=== PATIENT | female | born 1930 | race Hispanic/Latino ===

== ENCOUNTER 2016-09-10 13:00 | Emergency (ER) | payer MEDICARE, MEDICAID ==
[~2016-09-10] VITALS: Ht 121.9 cm; Wt 87.3 kg
[~2016-09-10 13:00] MED LIST: ACET-171 PO; ACETAMINOPHEN ORAL; ASPI-973 PO; CLON0.1T PO; LEVO75TA4 PO; LISI-567 PO; MAGN800O PO; METO50TA3 PO; OMEP20TA86 PO
[2016-09-10 13:12] VITALS: BP 117/63; PULSE 66; RESP 15; O2SAT 99
[2016-09-10] MEDS ORDERED: Ondansetron 2 mg/mL 2 mL Inj IVPUSH ONE (14:45)
--- NOTE | 2016-09-10 15:01 | ED.REPORT ---
HPI-Extremity Problem Lower Date of Service Sep 10, 2016 ED Provider: Vin Matias PA-C Amber is an 86-year-old female who presents with chief complaint of left knee pain. She states the pain began approximately one week ago shortly after getting a collagen injection. She states the pain is worsened significantly over the last 2 days. She says the pain radiates from her left knee to her hip she also complains of lower back pain and leg weakness. She reports that the pain has not responded significantly to naproxen. X-rays were taken today at [facility] of her left hip that the patient states were normal. She cannot tolerate the pain at this point. Denies fevers, chills, malaise, recent surgery, recent infection, immunosuppression, IV drug use. Admits to some stress incontinence but Denies new bowel/bladder dysfunction, saddle anesthesia. Nursing Notes Stated Complaint: L SIDE KNEE PAIN UP TO THE HIP Chief Complaint: Extremity Trauma Nursing Notes Reviewed: Yes Allergies: Coded Allergies: nitroglycerin (Verified Adverse Reaction, Intermediate, LOW BP, 09/10/16) Scheduled ([Q-Pap Extra Strength]) 500 MG ORAL Q6H NEEDED Aspirin (Aspirin) 81 Mg Tablet 81 MG PO DAILY Clonidine (Clonidine) 0.1 Mg Tablet 0.1 MG PO BID Levothyroxine (Levothyroxine) 75 Mcg Tablet 75 MCG PO DAILY Lisinopril (Lisinopril) 20 Mg Tablet 20 MG PO DAILY Magnesium Hydroxide (Milk of Magnesia) 2,400 Mg/10 Ml Oral.susp 2,400 MG PO DAILY Metoprolol Tartrate (Metoprolol Tartrate) 50 Mg Tablet 50 MG PO BIDWM Omeprazole (Omeprazole) 20 Mg Tablet.dr 20 MG PO BID Scheduled PRN Acetaminophen (Acetaminophen) 500 Mg Tablet 500 MG PO Q6H PRN PRN NEEDED Hydrocodone-Acetaminophen 5-325 mg (Hydrocodone-Acetaminophen 5-325 mg) 1 Each Tablet 0.5-1 TABLET PO BID PRN PRN For Pain Ondansetron ODT (Ondansetron ODT) 8 Mg Tab.rapdis 8 MG PO Q4H PRN PRN For Nausea Polyethylene Glycol 3350 (Miralax) 17 Gm Powd.pack 17 GM PO DAILY PRN PRN For Constipation General Time Seen by MD: 14:29 Chief Complaint Leg injury left Past Medical History Past Medical History Notes: PCP Dr. 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 Left hip: tender, pain aggravated by range of motion. No redness, swelling, warmth. Left knee: Tender primarily along the medial joint line, pain aggravated by range of motion, no redness, swelling, warmth. No effusion appreciated Left foot: Sensation intact, brisk capillary refill. DP and PT pulses not appreciated Bilaterally Back: Normal to inspection, no tenderness. Eyes: No scleral icterus or injection. No discharge. Vision grossly intact. ENT: Voice clear, hearing grossly intact. Respiratory: Regular rate and rhythm. Breath sounds present, clear to auscultation and equal bilaterally. Cardiovascular: Regular rate and rhythm, without murmur, gallop or rub. No pedal edema. Gastrointestinal: Abdomen flat and non-tender without guarding or rebound. Bowel sounds normoactive. Skin: Warm and dry. Neurological: Not able to raise performed left straight leg raise due to lack of effort. Sensation intact in both feet. Psychological: Alert and oriented. Speech appropriate, linear and logical. Behavior appropriate. Initial Vital Signs Vital Signs (First) Date Time Temp Pulse Resp B/P Pulse Ox O2 Delivery O2 Flow Rate FiO2 09/10/16 13:12 36.7 66 15 117/63 99 Room Air Initial VS: Reviewed, Vital signs normal Interpretation & Diagnostics Lab Results Interpretation Result Diagram: 09/10/16 1507 09/10/16 1507 Test 09/10/16 15:07 White Blood Count 5.8th/mm3 (3.8-10.1) Red Blood Count 3.24mil/mm3 (3.90-5.20) Hemoglobin 10.6g/dL (12.0-15.6) Hematocrit 32.0% (35.0-46.0) Mean Corpuscular Volume 98.8fL (81-100) Mean Corpuscular Hemoglobin 32.7pg (27.0-35.0) Mean Corpuscular Hemoglobin Concent 33.1% (32.0-37.0) Red Cell Distribution Width 11.8% (12.3-15.4) Platelet Count 284bil/L (150-400) Neutrophils (%) (Auto) 71.3% (40-74) Lymphocytes (%) (Auto) 17.0% (14-46) Monocytes (%) (Auto) 8.3% (4-12) Eosinophils (%) (Auto) 2.9% (0-5) Basophils (%) (Auto) 0.3% (0-3) Sodium Level 131mEq/L (134-144) Potassium Level 5.4mEq/L (3.5-5.2) Chloride Level 96mEq/L (97-108) Carbon Dioxide Level 21mmol/L (18-29) Blood Urea Nitrogen 28mg/dL (8-27) Creatinine 1.04mg/dL (0.57-1.00) Estimat Glomerular Filtration Rate 72mL/min (>59) Glucose Level 109mg/dL (60-99) Calcium Level 8.6mg/dL (8.5-10.1) Total Bilirubin 0.3mg/dL (0.0-1.2) Aspartate Amino Transf (AST/SGOT) 22U/L (0-50) Alanine Aminotransferase (ALT/SGPT) 14U/L (0-32) Alkaline Phosphatase 87U/L (25-165) Total Protein 7.6g/dL (6.4-8.4) Albumin 3.7g/dL (3.4-5.0) Hold Deutsch Top Tube Received (Received) Lab Results Interpretation: CBC normal CMP marginal potassium, not clinically signifanct Renal function normal Discharge & Departure Impression: Primary Impression: Bilateral hip pain Additional Impression: Bilateral knee pain Chronicity: acute Qualified Code: M25.561 - Pain in right knee Referrals: Jeanette Key MD (PCP) Attending Statement The patient was initially seen and evaluated by the mid-level provider, that I personally interviewed and examined this patient with the assistance of an park interpreter. This is a patient who has had some chronic knee and hip pain, has been worse over the past week and while is bilateral worse on the left side. She still been ambulatory. She was just seen by orthopedics today, and had injections performed on both knees. Her symptoms still having pain and reports she just does not have enough pain control with ibuprofen she is taking twice a day, and would like additional relief. She denies fever, trauma, effusion, she denies new numbness, weakness, paresthesias. Reports her knee is been quite stiff and she cannot bend it very well. She is again able to ambulate. He does have some chronic back pain, but reports is not really changed. There is no radiation of pain below the knee. No clearly radicular symptoms. Exam patient's obese, she is in no visible distress. He has decreased range of motion particularly in the left knee, but I do not appreciate any warmth, effusion or findings clinically suggest a septic knee, or the findings of venous thrombi embolism. Patient is status post arthrocentesis earlier today, and the time he is extraordinarily low probability for a effusion. She permits internal and external rotation of the hip, flex and extend without evidence of acute fracture, septic joint, acute intraarticular process. His artery had radiographs since the onset of the symptoms, and I am not finding indication that they need to be repeated. Discussion the patient's family she is basically here requesting additional pain control. She does not have red flags to indicate an acute radiculopathy, epidural process or need for emergent cardiac intervention. I am not finding evidence of a joint infection, fracture or other process. The patient received a dose of morphine as initiated by the mid-level, and a dose of hydrocodone. The patient also has a complaint of some chronic nausea and did receive a dose of Zofran for this. After a Discussion with the patient with family, they would like to be discharged with the addition of some when necessary hydrocodone to allow some time for the injections several just performed. The plan is to starts her 0.5 of hydrocodone up to twice a day. I have also written a prescription for MiraLAX that she has had intermittent problems with constipation. Routine precautions were reviewed, with explained that she has new or worsening symptoms , develops a fever or swelling-she is return directly to respond. She will follow-up with her orthopedist her PCP next week for recheck. Vin Matias PA-C Sep 10, 2016 15:01 Carlos Diaz MD Sep 10, 2016 18:16
[2016-09-10 15:17] LABS: BASOPHILS % (AUTO) 0.3 % (0-3); EOSINOPHILS % (AUTO) 2.9 % (0-5); MONOCYTES % (AUTO) 8.3 % (4-12); Mean Corpuscular Hemoglobin 32.7 pg (27.0-35.0); Mean Corpuscular Volume 98.8 fL (81-100); NEUTROPHILS % (AUTO) 71.3 % (40-74); Platelet Count 284 bil/L (150-400)
[2016-09-10] MEDS ORDERED: HYDROcodone-APAP 5-325 mg Tablet PO ONE (16:35)
[2016-09-10] MEDS ORDERED: POLY17PO6 PO (17:25)
[2016-09-10] MEDS ORDERED: ONDA8TAB10 PO (17:25)
[2016-09-10] MEDS ORDERED: HYDR-4003 PO (17:25)
[2016-09-10] MEDS ORDERED: Ondansetron 8 mg ODT Tablet ONE (17:51)
[2016-09-10] MEDS ORDERED: Ondansetron 8 mg ODT Tablet PO ONE (18:15)
[2016-09-10 18:16] VITALS: BP 151/71; PULSE 71; RESP 17; O2SAT 99
== END 2016-09-10 18:17 ==
LOC: SED 13:00
DX: M25.551 Pain in right hip (principal); M25.552 Pain in left hip; M25.561 Pain in right knee; M25.562 Pain in left knee; M54.5 Low back pain; J44.9 Chronic obstructive pulmonary disease, unspecified; I10 Essential (primary) hypertension; E66.9 Obesity, unspecified; I44.2 Atrioventricular block, complete; Z98.890 Other specified postprocedural states; Z95.0 Presence of cardiac pacemaker; Z68.43 Body mass index [BMI] 50.0-59.9, adult; Z79.82 Long term (current) use of aspirin; Z88.8 Allergy status to other drugs, medicaments and biological substances
CPT/HCPCS: 36415; 80053; 85025; 96374; 96375; 96376; 99284; J2270; J2405

== ENCOUNTER 2016-11-28 12:14 | Emergency (ER) | payer MEDICARE, MEDICAID ==
[~2016-11-28] VITALS: Ht 134.6 cm; Wt 89.1 kg
[~2016-11-28 12:14] MED LIST changes: +HYDR-4003 PO; +ONDA8TAB10 PO; +POLY17PO6 PO
[2016-11-28 12:25] VITALS: BP 126/57; PULSE 71; RESP 20; O2SAT 98
--- NOTE | 2016-11-28 14:14 | ED.REPORT ---
HPI-Extremity Problem Lower Date of Service November 28, 2016 ED Provider: Dr. Yossi Vazquez M.D. Nursing Notes Stated Complaint: RIGHT HIP/LEG PAIN Chief Complaint: Extremity Trauma Nursing Notes Reviewed: Yes Allergies: Coded Allergies: nitroglycerin (Verified Adverse Reaction, Intermediate, LOW BP, 09/10/16) Scheduled ([Q-Pap Extra Strength]) 500 MG ORAL Q6H NEEDED Aspirin (Aspirin) 81 Mg Tablet 81 MG PO DAILY Clonidine (Clonidine) 0.1 Mg Tablet 0.1 MG PO BID Levothyroxine (Levothyroxine) 75 Mcg Tablet 75 MCG PO DAILY Lisinopril (Lisinopril) 20 Mg Tablet 20 MG PO DAILY Magnesium Hydroxide (Milk of Magnesia) 2,400 Mg/10 Ml Oral.susp 2,400 MG PO DAILY Metoprolol Tartrate (Metoprolol Tartrate) 50 Mg Tablet 50 MG PO BIDWM Omeprazole (Omeprazole) 20 Mg Tablet.dr 20 MG PO BID Scheduled PRN Acetaminophen (Acetaminophen) 500 Mg Tablet 500 MG PO Q6H PRN PRN NEEDED Hydrocodone-Acetaminophen 5-325 mg (Hydrocodone-Acetaminophen 5-325 mg) 1 Each Tablet 0.5-1 TABLET PO BID PRN PRN For Pain Ondansetron ODT (Ondansetron ODT) 8 Mg Tab.rapdis 8 MG PO Q4H PRN PRN For Nausea Polyethylene Glycol 3350 (Miralax) 17 Gm Powd.pack 17 GM PO DAILY PRN PRN For Constipation General Time Seen by MD: 14:13 Past Medical History Past Medical History Notes: PCP Dr. 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 I, Dr. Vazquez, personally performed the history, physical exam, and medical decision-making; I reviewed and confirmed the accuracy of the information in the transcribed note. copies to: Jeanette Key MD, Ben M MD November 28, 2016 14:14 LI CONDE November 28, 2016 14:20 Cm Bhardwaj MD November 28, 2016 15:14
--- NOTE | 2016-11-28 15:01 | DRSVH ---
PROCEDURE: X-RAY PELVIS W/LAT HIP (RT) ([id number]) INDICATIONS: pain TECHNIQUE: AP pelvis with lateral view(s) of the right hip(s). COMPARISON: [facility], CR, XR CHEST 2VW, 07/17/2016, 17:27. FINDINGS: Bones: No acute fracture or dislocation is evident involving the right hip. There are moderate degen erative changes of the right hip. Prominent degenerative changes of the image the lumbosacral spine and moderate degenerative changes of the left hip and pubis symphysis are incidentally noted. The thurman perior and inferior pubic rami on the right appear to be grossly intact, but are not well valuated on this exam. The bone mineralization is decreased. No suspicious osseous lesions are evident. Soft tissues: The imaged bowel loops do not appear to be significantly dilated. Moderate stool is ev ident within the colon. No suspicious soft tissue calcifications. IMPRESSION: Degenerative changes of the right hip without acute fracture. Dictated by: Atilio Flores M.D. on 11/28/2016 at 13:58 Approved by: Atilio Flores M.D. on 11/28/2016 at 14:00
--- NOTE | 2016-11-28 15:15 | ED.REPORT ---
HPI-General Illness Date of Service November 28, 2016 ED Provider: Cm Bhardwaj MD Patient is an 86 year old female who presents to the ED complaining of R hip pain onset 3 days ago. Associated symptoms include R upper leg pain and trouble walking (secondary to pain). She denies numbness, weakness, tingling, dysuria, fever, chest pain, SOB, abdominal pain, or any other symptoms. She does not recall a mechanism of injury. She has had similar symptoms previously due to arthritis in her hip. She is taking Ibuprofen for her pain though this is not adequately managing her pain. She is here with family seeking better pain control. She states that she is not interested in having surgery on her hip. She has not fallen. Nursing Notes Stated Complaint: RIGHT HIP/LEG PAIN Chief Complaint: Extremity Trauma Nursing Notes Reviewed: Yes Allergies: Coded Allergies: nitroglycerin (Verified Adverse Reaction, Intermediate, LOW BP, 09/10/16) Scheduled ([Q-Pap Extra Strength]) 500 MG ORAL Q6H NEEDED Aspirin (Aspirin) 81 Mg Tablet 81 MG PO DAILY Clonidine (Clonidine) 0.1 Mg Tablet 0.1 MG PO BID Levothyroxine (Levothyroxine) 75 Mcg Tablet 75 MCG PO DAILY Lisinopril (Lisinopril) 20 Mg Tablet 20 MG PO DAILY Magnesium Hydroxide (Milk of Magnesia) 2,400 Mg/10 Ml Oral.susp 2,400 MG PO DAILY Metoprolol Tartrate (Metoprolol Tartrate) 50 Mg Tablet 50 MG PO BIDWM Omeprazole (Omeprazole) 20 Mg Tablet.dr 20 MG PO BID Scheduled PRN Acetaminophen (Acetaminophen) 500 Mg Tablet 500 MG PO Q6H PRN PRN NEEDED Hydrocodone-Acetaminophen 5-325 mg (Hydrocodone-Acetaminophen 5-325 mg) 1 Each Tablet 0.5-1 TABLET PO BID PRN PRN For Pain Hydrocodone-Acetaminophen 5-325 mg (Hydrocodone-Acetaminophen 5-325 mg) 1 Each Tablet 1 TABLET PO Q4H PRN PRN For Pain Ondansetron ODT (Ondansetron ODT) 8 Mg Tab.rapdis 8 MG PO Q4H PRN PRN For Nausea Polyethylene Glycol 3350 (Miralax) 17 Gm Powd.pack 17 GM PO DAILY PRN PRN For Constipation General Time Seen by MD: 15:11 Chief Complaint Other (Hip pain ) Hx Obtained From: Patient, Daughter Arrived By: Wheelchair Sudden in Onset?: Yes Onset Occurred: 3 days ago Symptom Duration: Since onset Similar Sx Previous: Yes Past Medical History Past Medical History Notes: PCP Dr. 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 hyponatremia hyperthyroidism chronic chest pain Reports: COPD, GERD, Hypertension Reports: Obesity Past Surgical History Uterus biposy Reports: Pacemaker insertion Smoking History Former Smoker Social History Other Social History: Good social support, Local resident Ambulatory Status Cane Review of Systems Full Review of Systems Constitutional: Denies: Fever Respiratory: Denies: Shortness of breath Cardiovascular: Denies: Chest pain GI: Denies: Abdominal pain Female: Denies: Dysuria Musculoskeletal: Reports: Extremity pain (R leg ), Joint pain (R hip ) Neurologic: Reports: Problem walking (Secondary to pain ), Denies: Numbness, Weakness Complete sys rev & neg: except as marked. Physical Exam Vital Signs Vital Signs Date Time Temp Pulse Resp B/P Pulse Ox O2 Delivery O2 Flow Rate FiO2 11/28/16 18:04 72 12 106/47 92 Room Air 11/28/16 12:25 36.9 71 20 126/57 98 Initial VS: Reviewed Head / Eyes: Atraumatic, Normocephalic Neck: Full range of motion Skin: Warm, Dry Neurologic: Alert, Oriented, Nonfocal Psychiatric: Mood/affect normal, Behavior normal, Normal thought content General/Constitutional: Awake, Alert, No acute distress Respiratory / Chest: Breath sounds NL, Breath sounds = bilat, No respiratory distress Cardiovascular: Heart rate NL, Regular rhythm, Heart sounds NL, No gallop, No murmurs, No rubs Abdomen: Soft, Non-tender, No distention Lower Extremity / Pelvis / MS: Neurologic intact, Vascular intact Tenderness over R lateral hip Limited ROM of R hip secondary to pain Neurovascularly intact on distal extremities FROM L hip Interpretation & Diagnostics Lab Results Interpretation Lab Results Interpretation: CT Hip, no contrast: IMPRESSION: 1. No fracture. 2. Increasing left ovarian cyst; low grade malignancy could produce this appearance. Gynecological consultation is recommended. Dictated by: Harjinder Davis M.D. on 11/28/2016 at 19:03 Approved by: Harjinder Davis M.D. on 11/28/2016 at 19:05 X-Ray Interpretation Xray Interpretation: IMPRESSION: Degenerative changes of the right hip without acute fracture. Dictated by: Atilio Flores M.D. on 11/28/2016 at 13:58 Approved by: Atilio Flores M.D. on 11/28/2016 at 14:00 Study Performed: R hip/pelvis X-Ray Ordered: Hip right Interpretation / Wet Read by: Interpret - Radiologist CT Abd / Pelvis Interpretation Re-Eval/Medical Decision Med Decision/Clinical Course Patient is an 86 year old female who presents to the ED complaining of R hip pain onset 3 days ago. Associated symptoms include R upper leg pain and trouble walking (secondary to pain). She denies numbness, weakness, tingling, dysuria, fever, chest pain, SOB, abdominal pain, or any other symptoms. She does not recall a mechanism of injury. She has had similar symptoms previously due to arthritis in her hip. She is taking Ibuprofen for her pain though this is not adequately managing her pain. She is here with family seeking better pain control. She states that she is not interested in having surgery on her hip. She has not fallen. Here in the emergency department the patient is afebrile with stable vital signs and examination as above. There is no clinical evidence suggestive of acute hip fracture or traumatic injury. She is neurovascularly intact in the affected extremity. R hip/pelvis xray: Degenerative changes of the right hip without acute fracture. The patient is already taking NSAIDs as well as Tylenol and I had a long discussion with the family explaining that other than opiate pain medication there is little more that I would likely be able to add in the emergency room to help manage her pain. I initially treated her with oral oxycodone though this was not effective. Therefore I administered 1 dose of intramuscular hydromorphone. Given the degree of the patient's pain I had some concern for possible occult hip fracture and therefore I obtained a CT scan of the hip as below: IMPRESSION: 1. No fracture. 2. Increasing left ovarian cyst; low grade malignancy could produce this appearance. Gynecological consultation is recommended. After the above medications the patient reported significant improvement in her pain. I have advised her that I think she may benefit from evaluation by an orthopedic surgeon to assess whether or not she would benefit from steroid injections or possible hip surgery. At this time I feel that she is appropriate for discharge home. She has extensive support in the home and family can help care for her. Prior to discharge follow-up and return precautions were reviewed in detail with the patient who verbalized understanding and agreement with the plan. The patient was discharged in stable condition. Of note patient had left ovarian cyst as described above. She has been referred to [facility] and advised to follow up about this. Time of Eval: 15:48 Re-Evaluation/Progress Note: Discussed plan for discharge. Patient understands and agrees with plan. All questions addressed at this time. Counseled Regarding: Diagnosis, Lab results, Need for follow-up, When/why to return to ED Discharge & Departure Primary Impression: Hip pain, right Additional Impressions: Osteoarthritis of right hip Osteoarthritis type: unspecified Qualified Code: M16.11 - Unilateral primary osteoarthritis, right hip Ovarian mass, left Disposition: Home Discharge Condition All VS Reviewed: Yes Condition: Stable Additional Instructions: Thank you for seeking care at the emergency room. It is difficult for us to make definitive diagnoses in the ED but we believe that you are experiencing pain from osteoarthritis. Our primary goal today in the ED was to evaluate you for any life-threatening conditions. Your CT scan revealed a mass in your left ovary. You will be discharged with a prescription for Beryl for pain, please take as directed. Please be aware that this medication contains Tylenol. You should not exceed 4000 mg of Tylenol a day for all sources combined. You should follow-up with your primary doctor in the next week. Follow up with an OBGYN for your ovarian mass. You may benefit from surgery on your hip or injections in your hip. Please make an appointment with orthopedic surgeons to discuss this. You should return to the ED immediately if you develop worse pain, fevers, vomiting, cough, shortness of breath, chest pain, lightheadedness, weakness or any other concerning signs or symptoms. Thank you for letting us partake in your care today. Narcotic Pain Medicine You have been prescribed a narcotic for pain relief. These drugs are usually combined with acetaminophen (Tylenol#3, Percocet, Darvocet, Anexsia, Vicodin) or aspirin (Empirin#3, Percodan, Synalogs-DC) for increased effect. Narcotics act on the central nervous system to reduce pain; they also impair mental alertness and physical abilities. We advise you not to drink alcohol, drive a car, or operate dangerous equipment when you are taking these drugs. You can lessen stomach irritation from your medicine by taking it with meals or a full glass of water. Common side effects of narcotics are: Nausea and vomiting , heartburn, constipation, dizziness, sleepiness, and mood changes. If you have bothersome side effects or symptoms of an allergic reaction (itching, hives, rash), stop taking your medicine and call your doctor or the emergency room right away. Please keep your narcotic medicine well out of the reach of children. Orthopedist: Reed Blunt [address] [place] [id number] Referrals: Jeanette Key MD (PCP) Reed Blunt MD, William Andre Z MD Scribe Attestation Portions of this note were transcribed by Benson Blackmon. I, Dr. Bhardwaj personally performed the history, physical exam and medical decision-making; I reviewed and confirmed the accuracy of the information in the transcribed note. Signed by: Benson Blackmon 11/28/2016, [id number] copies to: Jeanette Key MD, Beck O MD November 28, 2016 15:14 BENSON BLACKMON November 28, 2016 15:40
[2016-11-28] MEDS ORDERED: HYDR-4003 PO (15:50)
[2016-11-28] MEDS ORDERED: HYDROcodone-APAP 10-325 mg PO ONE (15:50)
[2016-11-28 18:04] VITALS: BP 106/47; PULSE 72; RESP 12; O2SAT 92
[2016-11-28] MEDS ORDERED: HYDROmorphone 1 mg/mL Inj IM ONE (18:15)
--- NOTE | 2016-11-28 19:07 | DRSVH ---
PROCEDURE: CT HIP RIGHT W/O CONTRAST (36818) INDICATIONS: assess for fx, pain, neg xray TECHNIQUE: Noncontrast 3 mm axial sections acquired through the bony pelvis. Additional 3 mm axial sections acq uired through the symptomatic hip joint, with coronal and sagittal reformats. COMPARISON: [facility], CR, XR PELVIS W LATERAL HIP RT, 11/28/2016, 14:35. [facility], CR, XR PELVIS W LATERAL HIP LT, 09/10/2016, 11:51. [facility], CT, CHEST/ABD/PELVIS W/CON (PNL), 06/29/2013, 18:35. FINDINGS: Image quality: Excellent. Bones: No fracture or osseous lesion. Soft tissues: Visualized bowel loops are within normal limits. Visualized vasculature is normal in ca liber. Left ovary is within the posterior lobe superior pelvis, and there is a 33 mm diameter left ov miladys cysts, which previously measured 19 mm. IMPRESSION: 1. No fracture. 2. Increasing left ovarian cyst; low grade malignancy could produce this appearance. Gynecological co nsultation is recommended. Dictated by: Harjinder Davis M.D. on 11/28/2016 at 19:03 Approved by: Harjinder Davis M.D. on 11/28/2016 at 19:05
[2016-11-28 19:41] VITALS: BP 137/67; PULSE 84; RESP 22; O2SAT 94
[2016-11-29] MEDS ORDERED: FURO40SO4 PO (15:27)
[2016-11-29] MEDS ORDERED: AMLO5TAB2 PO (15:31)
[2016-11-29] MEDS ORDERED: LISI-567 PO (16:22)
[2016-11-29] MEDS ORDERED: IBUP100T7 PO (16:25)
== END 2016-11-28 19:42 | disposition home or self-care (01) ==
LOC: SED 12:14
DX: M16.11 Unilateral primary osteoarthritis, right hip (principal); N83.292 Other ovarian cyst, left side; J44.9 Chronic obstructive pulmonary disease, unspecified; K21.9 Gastro-esophageal reflux disease without esophagitis; I10 Essential (primary) hypertension; Z95.0 Presence of cardiac pacemaker; Z87.891 Personal history of nicotine dependence; Z88.8 Allergy status to other drugs, medicaments and biological substances; Z79.82 Long term (current) use of aspirin
CPT/HCPCS: 73501; 73700; 96372; 99285; J1170

== ENCOUNTER 2016-11-29 08:16 | Inpatient (IN) | payer MEDICARE, MEDICAID ==
[2016-11-29] VITALS (10 sets, daily range): BP systolic 99–135; BP diastolic 41–63; PULSE 84–122; RESP 14–25; O2SAT 92–98
[~2016-11-29] VITALS: Ht 137.2 cm; Wt 91.7 kg
--- NOTE | 2016-11-29 08:28 | ED.REPORT ---
HPI-Dyspnea / Wheezing Date of Service November 29, 2016 ED Provider: Carlos Diaz MD Patient is an 86 year old female with a history of asthma, CHF and hypertension who presents to the ED due to shortness of breath onset yesterday. Associated symptoms include vomiting, chills, nausea, leg and knee pain that has gotten progressively worse since yesterday. Per the patient's daughter, the patient has not been diaphoretic, shaking, or fever. Patient reports that she has not experienced this kind of shortness of breath before. The patient was seen yesterday for knee pain and given Hydrocodone. She had an episode of vomiting after taking the Hydrocodone around 1830 last night and than started having shortness of breath. The patient was also seen three days ago at [facility] for a kidney infection. She is not currently taking antibiotics. Nursing Notes Stated Complaint: CHEST PAIN/DIFFICULTY BREATHING Nursing Notes Reviewed: Yes ([employer] not reconciled) Allergies: Coded Allergies: nitroglycerin (Verified Adverse Reaction, Intermediate, LOW BP, 09/10/16) Scheduled ([Q-Pap Extra Strength]) 500 MG ORAL Q6H NEEDED Aspirin (Aspirin) 81 Mg Tablet 81 MG PO DAILY Clonidine (Clonidine) 0.1 Mg Tablet 0.1 MG PO BID Furosemide (Furosemide) 40 Mg/4 Ml Solution 20 MG PO DAILY Levothyroxine (Levothyroxine) 75 Mcg Tablet 75 MCG PO DAILY Lisinopril (Lisinopril) 20 Mg Tablet 20 MG PO DAILY Magnesium Hydroxide (Milk of Magnesia) 2,400 Mg/10 Ml Oral.susp 2,400 MG PO DAILY Metoprolol Tartrate (Metoprolol Tartrate) 50 Mg Tablet 50 MG PO BIDWM Omeprazole (Omeprazole) 20 Mg Tablet.dr 20 MG PO BID Scheduled PRN Acetaminophen (Acetaminophen) 500 Mg Tablet 500 MG PO Q6H PRN PRN NEEDED Hydrocodone-Acetaminophen 5-325 mg (Hydrocodone-Acetaminophen 5-325 mg) 1 Each Tablet 0.5-1 TABLET PO BID PRN PRN For Pain Hydrocodone-Acetaminophen 5-325 mg (Hydrocodone-Acetaminophen 5-325 mg) 1 Each Tablet 1 TABLET PO Q4H PRN PRN For Pain Ondansetron ODT (Ondansetron ODT) 8 Mg Tab.rapdis 8 MG PO Q4H PRN PRN For Nausea Polyethylene Glycol 3350 (Miralax) 17 Gm Powd.pack 17 GM PO DAILY PRN PRN For Constipation General Time Seen by MD: 08:25 Chief Complaint Shortness of breath Hx Obtained From: Patient, Daughter, Technical Sales Engineer Arrived By: Walk-in Sudden in Onset?: Yes Onset Occurred: Yesterday Symptom Duration: Since onset Recent Healthcare: No recent hospitalization, Recent doctor visit Similar Sx Previous: No Past Medical History Past Medical History Notes: PCP Dr. 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 GI: Reports: Nausea, Vomiting Physical Exam Initial Vital Signs Vital Signs (First) Date Time Temp Pulse Resp B/P Pulse Ox O2 Delivery O2 Flow Rate FiO2 11/29/16 08:37 37.0 91 14 135/52 94 Room Air 11/29/16 09:45 3 Initial VS: Reviewed, Unavailable (none on chart) General/Constitutional: Awake, Alert Appearance / Presentation: Positive: Obese Neck: Atraumatic, Supple RESPIRATORY: wheezing, mild bronchispasms decreased breath sounds all katz Cardiovascular: Regular rhythm, Heart sounds NL Heart Rate / Rhythm: Positive: Tachycardia LOWER EXTREMITIES: obese but no signs of obvious DVT can move legs without localizing pain Skin: Atraumatic, Color NL, No rash, Warm, Dry Neurologic: Oriented X3, Speech NL, No motor deficits, No sensory deficits Head / Eyes: Atraumatic, Normocephalic, PERRL, EOMI Rectum / Perineum: Atraumatic, control system manager passed, No gross blood, No mass Psychiatric: Affect NL, Mood NL Interpretation & Diagnostics Interpretation & Diagnostics: VENOUS DUPLEX: IMPRESSION: No deep vein thrombosis of the right lower extremity. Dictated by: Melody Sifuentes M.D. on 11/29/2016 at 10:58 Approved by: Melody Sifuentes M.D. on 11/29/2016 at 10:58 CHEST/ABDOMEN/PELVIS CT: IMPRESSION: 1. No acute intra-abdominal findings. Specifically, no findings to suggest retroperitoneal bleed. 2. Multiple large gallstones within the gallbladder fundus and probable gallstone within the cystic duct. There is probable dense sludge throughout the gallbladder as described above. The gallbladder wall is not well characterized; however there is no pericholecystic fluid or fat stranding to suggest acute cholecystitis. If further characterization is warranted, right upper quadrant ultrasound may be helpful. 3. 2.5 cm in diameter left ovarian cyst which is abnormal in an 86-year-old patient. Nonemergent pelvic ultrasound could be helpful to further characterize this finding. Additionally, annual sonographic surveillance recommended. Dictated by: Melody Sifuentes M.D. on 11/29/2016 at 11:09 Approved by: Melody Sifuentes M.D. on 11/29/2016 at 11:20 Lab Results Interpretation Result Diagram: 11/29/16 0838 11/29/16 1205 Test 11/29/16 08:38 11/29/16 09:00 11/29/16 12:05 White Blood Count 8.5th/mm3 (3.8-10.1) Red Blood Count 2.93mil/mm3 (3.90-5.20) Hemoglobin 9.5g/dL (12.0-15.6) Hematocrit 28.9% (35.0-46.0) Mean Corpuscular Volume 98.6fL (81-100) Mean Corpuscular Hemoglobin 32.4pg (27.0-35.0) Mean Corpuscular Hemoglobin Concent 32.9% (32.0-37.0) Red Cell Distribution Width 12.3% (12.3-15.4) Platelet Count 269bil/L (150-400) Neutrophils (%) (Auto) 74.2% (40-74) Lymphocytes (%) (Auto) 15.9% (14-46) Monocytes (%) (Auto) 9.3% (4-12) Eosinophils (%) (Auto) 0.1% (0-5) Basophils (%) (Auto) 0.1% (0-3) D-Dimer 1.65mg/L FEU (<0.50) Magnesium Level 2.3mg/dL (1.6-2.6) Troponin T 0.010ug/L (0.0-0.011) Pro-B-Type Natriuretic Peptide 3878pg/mL (0-738) Lactic Acid Level 2.2mmol/L (0.4-2.0) Sodium Level 131mEq/L (134-144) Potassium Level 4.7mEq/L (3.5-5.2) Chloride Level 92mEq/L (97-108) Carbon Dioxide Level 18mmol/L (18-29) Blood Urea Nitrogen 49mg/dL (8-27) Creatinine 1.67mg/dL (0.57-1.00) Estimat Glomerular Filtration Rate 42mL/min (>59) Glucose Level 188mg/dL (60-99) Calcium Level 9.2mg/dL (8.5-10.1) Total Bilirubin 0.3mg/dL (0.0-1.2) Aspartate Amino Transf (AST/SGOT) 22U/L (0-50) Alanine Aminotransferase (ALT/SGPT) 15U/L (0-32) Alkaline Phosphatase 84U/L (25-165) Total Protein 6.8g/dL (6.4-8.4) Albumin 3.8g/dL (3.4-5.0) Lab Results Interpretation: CBC, mildly new anemia from a normal hematocrit March 2016 CP mild hyponatremia, mild hyperkalemia, worsening renal insufficiency, glucose normal Lactic acid slightly elevated BMP elevated Troponin #1 negative ECG Interpretation ECG Interpretation: no acute ischemia no signs of hyperkalemia no changes since Mar 2016 Time: 08:36 Interpreted by: ED physician Normal ECG Interpretation: Normal rate (92), Normal sinus rhythm ECG Interpretation: low grade tachycardia after Albuterol treatment no other abnormalities no other findings or interval changes no signs of hyperkalemia Time: 10:31 Interpreted by: ED physician X-Ray Chest Interpretation Chest Xray Interpretation: IMPRESSION: No acute cardiopulmonary findings. Stable cardiomegaly. Dictated by: Melody Sifuentes M.D. on 11/29/2016 at 9:05 Approved by: Melody Sifuentes M.D. on 11/29/2016 at 9:06 View: Portable, 1 view Interpretation / Wet Read by: Interpret - Radiologist Re-Eval/Medical Decision Med Decision/Clinical Course This is an 86-year-old Italian-speaking female presents with a complaint of shortness of breath that she attributes to hydrocodone that she started yesterday for some right hip pain after being seen in the [facility] having had negative hip CT. I have a hard time following the patient's and family story, as, gave a challenges containing the patient's past medical history medications-old woman is able to obtain a medication list from the PCP at [facility]. The patient developed shortness of breath and nausea, again she trips to this to a drug reaction-but has no hives, urticaria, aspirations in the differential but not clear by history. On exam she is bronchospastic and has a sat around 90- 91%-but otherwise not have any hard findings. A chest x-ray was negative. Given she described right-sided pain yesterday, duplex ultrasound of right lower extremity was obtained and was negative for DVT. Note for new anemia compared with March, although guaiac was negative. 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 She also received aggressive albuterol given at bronchospasm. She reports a history of CHF and is worried about this, but none was clearly identified radiographically. Furthermore the bridge gang worker commended obtaining CT images to rule out the possibility of occult retroperitoneal hemorrhage, and given overall component of shortness of breath as well CT chest abdomen and pelvis noncontrast is obtained, without evidence of hemorrhage-or CHF. At this point the patient sounding gently hydrated. She did have ongoing problems with nausea, again she attributes to a single dose of hydrocodone yesterday-she did require multiple antiemetics in the department. He is being admitted to the hospital service, consultation with the bridge gang worker as been obtained of the current plan is hydration and reevaluation. Source of Hx: Old records Re-Evaluation/Progress #1: Time of Eval: 09:13 Patient Status: Mild relief Re-Evaluation/Progress #2: Time of Eval: 11:26 Re-Evaluation/Progress Note: Discussed results. Patient reports she is starting to have pain in her left arm. Discussed plan for admit. The patient understands and agrees. All questions were addressed. Consultation #1: Consulted With: Nephrology Call Returned at: 10:28 Note: Consult with Dr. Andrei Alex, nephrology, who recommends the patient have a CT Consultation #2: Referral / Consult Name: Nahun Jo Consulted With: Hospitalist Call Returned at: 12:21 Hooker Inspector: Agrees with eval, Agrees with plan, Accepts admit Counseled Regarding: Diagnosis, Lab results, Need for admission Discharge & Departure Impression: Primary Impression: Dyspnea Dyspnea type: unspecified Qualified Code: R06.00 - Dyspnea, unspecified Additional Impressions: Bronchospasm Hyperkalemia Acute renal insufficiency Anemia Iron deficiency anemia type: unspecified iron deficiency Disposition: ADMITTED TO HOSPITAL Discharge Condition All VS Reviewed: Yes Condition: Stable Referrals: Jeanette Key MD (PCP) Verenice Attestation Portions of this note were transcribed by Jacque Munoz. I, Dr. Diaz personally performed the history, physical exam and medical decision-making; I reviewed and confirmed the accuracy of the information in the transcribed note. Signed by: Verenice Lopes, 11/29/16 and 1222 copies to: Jeanette Key MD, Matthew F MD November 29, 2016 08:28 Rubina Munoz November 29, 2016 09:13
[2016-11-29] MEDS ORDERED: Albuterol 2.5 mg/3 mL Inhalation Solution NEB ONE (08:30)
[2016-11-29 08:44] LABS: BASOPHILS % (AUTO) 0.1 % (0-3); EOSINOPHILS % (AUTO) 0.1 % (0-5); MONOCYTES % (AUTO) 9.3 % (4-12); Mean Corpuscular Hemoglobin 32.4 pg (27.0-35.0); Mean Corpuscular Volume 98.6 fL (81-100); NEUTROPHILS % (AUTO) 74.2 % (40-74); Platelet Count 269 bil/L (150-400)
--- NOTE | 2016-11-29 09:08 | DRSVH ---
PROCEDURE: X-RAY CHEST ONE VIEW, PORTABLE ([id number]) INDICATIONS: SOB TECHNIQUE: One view of the chest was acquired. COMPARISON: [facility], CR, XR CHEST 2VW, 07/17/2016, 17:27. FINDINGS: Surgical changes and devices: Cardiac pacer is unchanged. Lungs and pleura: No pleural effusions or pneumothorax. Lungs are clear. Mediastinum: Mediastinal contours appear normal. Heart size is mildly enlarged, as before. Bones and chest wall: No suspicious bony lesions. Overlying soft tissues appear unremarkable. IMPRESSION: No acute cardiopulmonary findings. Stable cardiomegaly. Dictated by: Melody Sifuentes M.D. on 11/29/2016 at 9:05 Approved by: Melody Sifuentes M.D. on 11/29/2016 at 9:06
[2016-11-29 09:10] LABS: TROPONIN T 0.01 ug/L (0.0-0.011)
[2016-11-29] MEDS ORDERED: Ondansetron 2 mg/mL 2 mL Inj IVPUSH ONE ×2 (09:20→10:50)
[2016-11-29 09:21] LABS: Magnesium 2.3 mg/dL (1.6-2.6)
[2016-11-29] MEDS ORDERED: Calcium GLUCOnate 10% (Gm) 1 Gm/10 mL Inj IVPUSH PRN (09:30)
[2016-11-29] MEDS ORDERED: Insulin Human REGular-Omnicell 100 Unit/mL IV ONE (09:30)
[2016-11-29] MEDS ORDERED: Sodium Polystyrene Sulfonate 0.25 Gm/mL 500 mL Suspension PO ONE (09:30)
[2016-11-29] MEDS ORDERED: Albuterol 0.5% (5mg/mL) 20 mL Inhalation Solution NEB ONE (09:30)
[2016-11-29] MEDS ORDERED: Sodium Bicarb (50 mEq) 8.4% 1 mEq/mL 50 mL Syringe IVPUSH ONE (09:30)
[2016-11-29] MEDS: fentaNYL-PF 50 mCg/mL 2 mL Inj IVPUSH PRN ×3 (09:52→15:11)
--- NOTE | 2016-11-29 11:00 | DRSVH ---
PROCEDURE: US VEINOUS LEG DUPLEX UNILATERAL, RIGHT INDICATIONS: Pain, SOB, ro DVT TECHNIQUE: Real-time imaging, as well as color and pulse Doppler interrogation, were performed of the lower extr emity deep veins from the inguinal ligament to the popliteal fossa. COMPARISON: None. FINDINGS: The deep veins are normally compressible, and free of intraluminal thrombus. Color and pu lse Doppler demonstrate normal phasic intraluminal flow. There is normal augmentation response to di stal compression maneuver. IMPRESSION: No deep vein thrombosis of the right lower extremity. Dictated by: Melody Sifuentes M.D. on 11/29/2016 at 10:58 Approved by: Melody Sifuentes M.D. on 11/29/2016 at 10:58
--- NOTE | 2016-11-29 11:22 | DRSVH ---
PROCEDURE: CT CHEST, ABDOMEN AND PELVIS WITHOUT CONTRAST ([id number]) INDICATIONS: SOB, and anemia (?retroperitoneal bleed), Renal In TECHNIQUE: After the administration of oral contrast, 5 mm thick sections acquired from the lung apices to the s ymphysis pubis. 5 mm thick coronal and sagittal reformats acquired, with additional 7 mm coronal MIP reformats through the lungs. For radiation dose reduction, the following was used: automated expos ure control, adjustment of mA and/or kV according to patient size. COMPARISON: [facility], CT, CHEST/ABD/PELVIS W/CON (PN), 06/29/2013, 18:35. FINDINGS: Image quality: Excellent. CHEST: Lungs and pleura: No acute pulmonary opacities. No pleural effusions or pneumothorax. Central and peripheral airways are patent are normal in caliber. A 6 mm diameter intrafissural lymph node is pre sent within the right horizontal fissure. Mediastinum: Heart size is normal. No pericardial effusion. No mediastinal adenopathy by CT size c riteria. Thoracic aorta and central pulmonary arteries are normal in size. Scattered atheromatous ca lcifications are present within the aortic arch. Esophagus is normal in caliber. No hiatal hernia. Chest wall: No axillary or supraclavicular adenopathy by size criteria. Thyroid gland is unremarkab le. ABDOMEN: Solid organs: Liver and spleen are normal in size. Multiple gallstones are present within the gallbl adder fundus, a gallstone is also present near the cystic duct. No definite gallbladder wall thickeni ng; however dense sludge is present within the gallbladder fundus limiting evaluation of the wall. No pericholecystic fluid or fat stranding. Pancreas is normal in contours. No adrenal nodules. Both k idneys are normal in size, without hydronephrosis or nephrolithiasis. Peritoneum and bowel: Small and large bowel loops are normal in caliber and wall thickness. The appe ndix is not visualized; however there is no discrete right lower quadrant fluid or fat stranding to s uggest acute appendicitis. No free fluid or air. Nodes and vessels: No retroperitoneal or mesenteric adenopathy by size criteria. Aorta and inferior vena cava are normal in size. There are scattered atheromatous calcifications throughout the aorta and iliac arteries bilaterally. Miscellaneous: No ventral hernias. PELVIS: Genitourinary: Bladder wall thickness is normal. The uterus and right ovary are unremarkable. There is a 2.5 cm diameter left ovarian cyst. Miscellaneous: No inguinal hernias or adenopathy. Bones: No suspicious bony lesions. No vertebral body compression fractures. Severe degenerative ch anges are present throughout the lumbar spine. IMPRESSION: 1. No acute intra-abdominal findings. Specifically, no findings to suggest retroperitoneal bleed. 2. Multiple large gallstones within the gallbladder fundus and probable gallstone within the cystic d uct. There is probable dense sludge throughout the gallbladder as described above. The gallbladder wa ll is not well characterized; however there is no pericholecystic fluid or fat stranding to suggest a cute cholecystitis. If further characterization is warranted, right upper quadrant ultrasound may be helpful. 3. 2.5 cm in diameter left ovarian cyst which is abnormal in an 86-year-old patient. Nonemergent pelv ic ultrasound could be helpful to further characterize this finding. Additionally, annual sonographic surveillance recommended. Dictated by: Melody Sifuentes M.D. on 11/29/2016 at 11:09 Approved by: Melody Sifuentes M.D. on 11/29/2016 at 11:20
[2016-11-29] MEDS ORDERED: Promethazine Inj 12.5 MG in 0.9% Sodium Chloride-Pha MIX 100 ML IV ONE (12:25)
[2016-11-29] MEDS ORDERED: Alum-Mag Hydrox-Simeth 30 mL Suspension PO PRN (12:25)
[2016-11-29] MEDS ORDERED: 0.9% Sodium Chloride 500 ML IV ONE ×3 (12:35→19:55)
[2016-11-29] MEDS: 0.9% Sodium Chloride 1,000 ML IV SCH ×3 (13:17→20:10)
[2016-11-29] MEDS ORDERED: FURO40SO4 PO (15:27)
[2016-11-29] MEDS ORDERED: AMLO5TAB2 PO (15:31)
[2016-11-29] MEDS ORDERED: LISI-567 PO (16:22)
[2016-11-29] MEDS ORDERED: IBUP100T7 PO (16:25)
[2016-11-29] MEDS ORDERED: Ondansetron 2 mg/mL 2 mL Inj IVPUSH PRN (16:45)
[2016-11-29] MEDS ORDERED: Polyethylene Glycol (PEG) 17 Gm Powder PO PRN (16:45)
--- NOTE | 2016-11-29 17:16 | CONS ---
[address] [address] CONSULTATION REPORT PATIENT: LUI LAWRENCE : 1930 MR#: [id number] ADMIT: 11/29/2016 JOB ID: [id number] DATE OF SERVICE: 11/29/2016 REQUESTING PHYSICIAN: Carlos Diaz MD REASON FOR CONSULTATION: Management of hyperkalemia and abnormal kidney function. CHIEF COMPLAINT: Nausea, vomiting. PRESENT ILLNESS: This is an 86-year-old, lady with significant past medical history of hypertension, morbid obesity, third-degree AV block, status post pacemaker placement, hypothyroid, hypertension, osteoarthritis, who presented to the hospital with a complaint of nausea, vomiting, and right hip pain. The patient is speaking. I have obtained history from her daughter. Apparently, the patient came to the emergency department last night due to right hip pain. She was sent home with hydrocodone. As soon as she took a dose of hydrocodone, she developed episodes of nausea, vomiting, and chest tightness. She then came to the hospital for further investigation. Daughter reported the patient has had history of chronic right hip pain. She was seen by orthopedist. She was offered for a hip replacement. However, she has refused. The patient has been on ibuprofen, at least two tablets once a day for several months. On top of that, she was taking the lisinopril for her blood pressure medication. Her initial blood work showed the potassium of 6.2, creatinine of 1.54. According to our record her serum creatinine had ranged between 0.6-1.0. She has not seen any technical mgr. Three days ago, patient was seen by a physician at [facility] and she was told that she had UTI. However, she has not started any antibiotics. The patient received medical management for hyperkalemia in the emergency department. Her potassium came down from 6.2 to 4.7. PAST MEDICAL HISTORY: 1. Obesity. 2. Hypertension. 3. Third-degree AV block, status post pacemaker placement. 4. Hypothyroid. 5. Degenerative joint disease. 6. Dyslipidemia. 7. GERD. 8. Pulmonary nodule. 9. COPD and history of tobacco abuse in the past. PAST SURGICAL HISTORY: Status post pacemaker placement in 2007. FAMILY HISTORY: Positive for hypertension, arthritis, and asthma in the family. SOCIAL HISTORY: She is a . She is a former smoker. Denies current use of alcohol, tobacco, or illicit drugs. ALLERGIES: NITROGLYCERIN. MEDICATIONS: 1. Ibuprofen as needed. 2. Tylenol. 3. Aspirin. 4. Clonidine. 5. Hydrocodone. 6. Levothyroxine. 7. Lisinopril. 8. Milk of magnesia. 9. Metoprolol. 10. Omeprazole. 11. Zofran. 12. MiraLAX. 13. Furosemide. 14. Ketotifen. REVIEW OF SYSTEMS: Fourteen-point review of system was performed. PHYSICAL EXAMINATION: Vitals: Temperature 37.0, pulse 120, respiratory 20, blood pressure 119/48, O2 sat 98% on nasal cannula 2 L. General appearance: Awake, alert, agitated. Mild distress. HEENT: PERRLA. Atraumatic. Dry mucous membranes. No pallor. No jaundice. No icteric sclerae. No JVD. No lymphadenopathy. No thyroid enlargement. Heart: Regular rhythm. Tachycardic. No murmurs, rubs, or gallops. Pacemaker noted in the left upper chest. Lungs: Clear to auscultation bilaterally. No wheezing. No rhonchi. Abdomen: Soft. Mild tenderness on the epigastric area. Active bowel sounds. No hepatosplenomegaly. Extremities: No edema, cyanosis or clubbing of fingers. IMAGING DATA: Chest x-ray showed no acute cardiopulmonary findings. Lower extremity DVT showed no deep vein thrombosis. CT abdomen without contrast showed multiple large gallstones within the gallbladder. No pericholecystic fluid noted. No hydronephrosis or nephrolithiasis. LABORATORY: WBC 8.5, hemoglobin 9.5, sodium 131, potassium 4.7, chloride 92, bicarb 18, BUN 49, creatinine 1.67. D-dimer 1.65. UA is pending. 1. Acute kidney injury. Likely due to prerenal azotemia in the setting of lisinopril and NSAID use. 2. Hyperkalemia secondary to renal insufficiency, TONI inhibitor, and a NSAIDs. 3. Hypovolemic hyponatremia. 4. New onset nausea, vomiting after narcotics use. 5. Chronic right hip pain. 6. Obesity. 7. Third-degree AV block status post pacemaker placement. 8. Hypothyroid. Per renal standpoint, I would recommend to hold all her blood pressure medications. Start septic workup. Recommend normal saline 500 cc bolus over an hour and run at 100 cc/hour. No urgent indication for dialysis. Thank you for the consultation. We will monitor along with you.
[2016-11-29] MEDS: cefTRIAXone Inj 2,000 MG in Dextrose 5% Minibag Plus 50 ML IV SCH (20:10)
--- NOTE | 2016-11-29 20:18 | PCM.HPMED ---
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 Information obtained via chart review and video business intelligence architect. Patient and family state that she has a history of severe arthritis for which she gets knee injections every six months. However, yesterday they note a significant increase in her leg, buttock and low back pain for which she presented to the emergency department. She states that she was discharged from the ED with a script for hydrocodone but never had this filled because the hydrocodone that she received in the ED prior to discharge made her sick. She reports intense nausea and vomiting intermittently throughout the night, which she attributes to the hydrocodone. She also states that the shortness of breath began after the vomiting started and denies experiencing this kind of shortness of breath before. She does note a similar reaction to hydrocodone in the past. Of note, she states that she was seen by her PCP a few weeks ago and found to have kidney infection. However, she states that she was not started on antibiotics but rather was told to come back in a couple of weeks to have repeat lab work done. She reports fatigue, dysuria, leg pain, dyspnea on exertion and constipation. Denies fever, chills, chest pain, rash, itching, headache, abdominal pain or diarrhea. In the ED, vitals 37.0, BP 135/52, pulse 91, SpO2 94% on room air. Labs: wbc 8.5 , Hb 9.5, Hct 28.9, plts 269, sodium 131, potassium 4.7, chloride 92, bicarb 18 , BUN 49, creatinine 1.67, glucose 188, lactic acid 2.2, proBNP 3878. Stool guaiac was negative. ECG- normal sinus rhythm, rate 92. Chest xray negative for acute process. Venous doppler right lower extremity negative for DVT. CT chest, abdomen and pelvis negative for acute intra-abdominal findings. Nephrology consulted from the ER with plan of hydration and reevaluation. Review of Systems: A comprehensive review of systems was conducted with the patient and found to be negative except as above in the History of Present Illness. Allergies Coded Allergies: nitroglycerin (Verified Adverse Reaction, Intermediate, LOW BP, 09/10/16) Home Medications Omeprazole 20 mg daily Metoprolol tartrate 50 mg bid Acetaminophen every 6 hours prn Levothyroxine 75 g daily Ketotifen opthalmic drops Aspirin 81 mg daily Clonidine 0.1 mg bid Furosemide 20 mg daily- notes indicate a recent BID Lisinopril 20 mg daily Amlodipine 5 mg daily Exam Vital Signs & I/O Vital Sign- Last 8 Hours Date Time Temp Pulse Resp B/P Pulse Ox O2 Delivery O2 Flow Rate FiO2 12/01/16 12:50 108 97 Nasal Cannula 2.00 12/01/16 10:04 37.6 114 22 136/79 95 Nasal Cannula 2.00 12/01/16 10:00 Supplement Oxygen 12/01/16 09:20 108 Intake and Output- Last 8 Hour 12/01/16 Cumulative From/Thru 07:00 11/29/16 08:37 - 12/01/16 05:00 Intake Total 100 ml 3575 ml Output Total 540 ml Balance 100 ml 3035 ml Intake Oral 100 ml 620 ml IV Total 2955 ml Output Urine Total 540 ml # Voids 2 5 # Bowel Movements 1 Lab & Micro Results Laboratory Tests Test 12/01/16 02:40 White Blood Count 6.7th/mm3 (3.8-10.1) Red Blood Count 2.66mil/mm3 (3.90-5.20) Hemoglobin 8.4g/dL (12.0-15.6) Hematocrit 27.4% (35.0-46.0) Mean Corpuscular Volume 103.0fL (81-100) Mean Corpuscular Hemoglobin 31.6pg (27.0-35.0) Mean Corpuscular Hemoglobin Concent 30.7% (32.0-37.0) Red Cell Distribution Width 13.3% (12.3-15.4) Platelet Count 223bil/L (150-400) Neutrophils (%) (Auto) 72.8% (40-74) Lymphocytes (%) (Auto) 12.5% (14-46) Monocytes (%) (Auto) 12.5% (4-12) Eosinophils (%) (Auto) 1.6% (0-5) Basophils (%) (Auto) 0.3% (0-3) Sodium Level 139mEq/L (134-144) Potassium Level 5.1mEq/L (3.5-5.2) Chloride Level 102mEq/L (97-108) Carbon Dioxide Level 24mmol/L (18-29) Blood Urea Nitrogen 24mg/dL (8-27) Creatinine 1.14mg/dL (0.57-1.00) Estimat Glomerular Filtration Rate 65mL/min (>59) Glucose Level 110mg/dL (60-99) Calcium Level 8.2mg/dL (8.5-10.1) Magnesium Level 2.2mg/dL (1.6-2.6) Procalcitonin 0.11ng/mL (0.00-0.08) Microbiology 11/29/16 Blood Culture - Preliminary, Resulted No growth at 2 days; culture examined... 11/30/16 Adenovirus DNA (PCR) - Final, Complete Not Detected 11/30/16 Coronavirus 229E PCR - Final, Complete Not Detected 11/30/16 Coronavirus HKU1 PCR - Final, Complete Not Detected 11/30/16 Coronavirus NL63 PCR - Final, Complete Not Detected 11/30/16 Coronavirus OC43 PCR - Final, Complete Not Detected 11/30/16 Influenza Type A (PCR) - Final, Complete Not Detected 11/30/16 Influenza Type B (PCR) - Final, Complete Not Detected 11/30/16 Human Metapneumovirus (PCR) (ASHLEE) - Final, Complete Not Detected 11/30/16 Rhinovirus (PCR)(ASHLEE) - Final, Complete Not Detected 11/30/16 Parainfluenza Virus Type 1 (PCR) - Final, Complete Not Detected 11/30/16 Parainfluenza Virus Type 2 (PCR) - Final, Complete Not Detected 11/30/16 Parainfluenza Virus Type 3 (PCR) - Final, Complete Not Detected 11/30/16 Parainfluenza Virus Type 4 (NAAT) - Final, Complete Not Detected 11/30/16 Respiratory Syncytial Virus (PCR)MA - Final, Complete Not Detected 11/30/16 Chlamydia pneumoniae (PCR) - Final, Complete Not Detected 11/30/16 Mycoplasma pneumoniae DNA Detection - Final, Complete 11/29/16 Urine Culture - Final, Complete Mixed Urogenital Kindra Result Diagram: 12/01/1623912/01/16239 Review of Systems: Constitutional: Negative, except as otherwise mentioned in the history above. Ophthalmologic: Negative, except as otherwise mentioned in the history above. Cardiovascular: Negative, except as otherwise mentioned in the history above. Respiratory: Negative, except as otherwise mentioned in the history above. Gastrointestinal: Negative, except as otherwise mentioned in the history above. Genitourinary: Negative, except as otherwise mentioned in the history above. Musculoskeletal: Negative, except as otherwise mentioned in the history above. Neurological: Negative, except as otherwise mentioned in the history above. Psychiatric: Negative, except as otherwise mentioned in the history above. Hematologic/Lymphatic: Negative, except as otherwise mentioned in the history above. Allergic/Immunologic: Negative, except as otherwise mentioned in the history above. PMH Hypertension Pre-diabetes Morbid obesity, BMI 48.5 Third-degree heart block s/p dual chamber pacemaker, 2004 Chronic chest pain with a normal stress test in 2009. Pulmonary nodule. Hypothyroidism. Hyperkalemia Obstructive sleep apnea Cholelithiasis Cataracts Osteoarthritis GERD Anemia COPD? Surgical History Pacemaker placement Uterine biopsy Family History Reports mother with heart disease. Denies family history of diabetes, cancer or stroke. Social History Hx Alcohol Use: No Hx Substance Use: No Hx Tobacco Use: Yes (Quit 20 years ago) Smoking Status: Former Smoker (quit 40 years ago) Living Arrangement: with Family Exam Vital Signs Vital Sign - Last Date Time Temp Pulse Resp B/P Pulse Ox O2 Delivery O2 Flow Rate FiO2 11/29/16 14:33 Supplement Oxygen 11/29/16 14:26 120 11/29/16 14:19 37.0 20 119/48 97 3.00 Exam General: Obese, Albanian-speaking elderly female, in no acute distress, appropriately interactive HEENT: Normocephalic, atraumatic. PERRLA, anicteric sclerae. Oral mucosa dry. Neck: Supple, nontender, no JVD, no lymphadenopathy appreciated. Cardiovascular: Regular rate and rhythm with no murmurs, rubs, or gallops appreciated Pulmonary: Decreased breath sounds bilaterally, lung sounds coarse with faint expiratory wheezing, no crackles or rhonchi. No use of accessory muscles. Nasal cannula in place. Abdomen: Soft, obese, nondistended, nontender, no masses. Bowel tones present. Extremities: No clubbing, cyanosis, or edema. Skin: Normal temperature, decreased turgor, no rash or ulcerations. Neurological: Cranial nerves grossly intact. No focal deficit. Ambulates with cane. Psychiatric: Normal mood and affect. Alert and oriented to person, place, and time. Lab and Diagnostics Labs Laboratory Tests Test 11/29/16 08:38 11/29/16 09:00 11/29/16 12:05 White Blood Count 8.5th/mm3 (3.8-10.1) Red Blood Count 2.93mil/mm3 (3.90-5.20) Hemoglobin 9.5g/dL (12.0-15.6) Hematocrit 28.9% (35.0-46.0) Mean Corpuscular Volume 98.6fL (81-100) Mean Corpuscular Hemoglobin 32.4pg (27.0-35.0) Mean Corpuscular Hemoglobin Concent 32.9% (32.0-37.0) Red Cell Distribution Width 12.3% (12.3-15.4) Platelet Count 269bil/L (150-400) Neutrophils (%) (Auto) 74.2% (40-74) Lymphocytes (%) (Auto) 15.9% (14-46) Monocytes (%) (Auto) 9.3% (4-12) Eosinophils (%) (Auto) 0.1% (0-5) Basophils (%) (Auto) 0.1% (0-3) D-Dimer 1.65mg/L FEU (<0.50) Sodium Level 128mEq/L (134-144) 131mEq/L (134-144) Potassium Level 6.2mEq/L (3.5-5.2) 4.7mEq/L (3.5-5.2) Chloride Level 91mEq/L (97-108) 92mEq/L (97-108) Carbon Dioxide Level 18mmol/L (18-29) 18mmol/L (18-29) Blood Urea Nitrogen 47mg/dL (8-27) 49mg/dL (8-27) Creatinine 1.54mg/dL (0.57-1.00) 1.67mg/dL (0.57-1.00) Estimat Glomerular Filtration Rate 46mL/min (>59) 42mL/min (>59) Glucose Level 162mg/dL (60-99) 188mg/dL (60-99) Calcium Level 9.2mg/dL (8.5-10.1) 9.2mg/dL (8.5-10.1) Magnesium Level 2.3mg/dL (1.6-2.6) Total Bilirubin 0.4mg/dL (0.0-1.2) 0.3mg/dL (0.0-1.2) Aspartate Amino Transf (AST/SGOT) 27U/L (0-50) 22U/L (0-50) Alanine Aminotransferase (ALT/SGPT) 19U/L (0-32) 15U/L (0-32) Alkaline Phosphatase 98U/L (25-165) 84U/L (25-165) Troponin T 0.010ug/L (0.0-0.011) Pro-B-Type Natriuretic Peptide 3878pg/mL (0-738) Total Protein 8.1g/dL (6.4-8.4) 6.8g/dL (6.4-8.4) Albumin 4.1g/dL (3.4-5.0) 3.8g/dL (3.4-5.0) Lactic Acid Level 2.2mmol/L (0.4-2.0) Result Diagram: 12/01/16 0240 12/01/16 0240 [facility] 11/29/16 Blood Culture- pending X-Rays, CTs and MRIs (11/29/16) X-RAY CHEST ONE VIEW, PORTABLE IMPRESSION: No acute cardiopulmonary findings. Stable cardiomegaly. Dictated and approved by: Melody Sifuentes M.D. on 11/29/2016 at 9:05 (11/29/16) US VEINOUS LEG DUPLEX UNILATERAL, RIGHT IMPRESSION: No deep vein thrombosis of the right lower extremity. Dictated and approved by: Melody Sifuentes M.D. on 11/29/2016 at 10:58 (11/29/16) CT CHEST, ABDOMEN AND PELVIS WITHOUT CONTRAST IMPRESSION: 1. No acute intra-abdominal findings. Specifically, no findings to suggest retroperitoneal bleed. 2. Multiple large gallstones within the gallbladder fundus and probable gallstone within the cystic duct. There is probable dense sludge throughout the gallbladder as described above. The gallbladder wall is not well characterized; however there is no pericholecystic fluid or fat stranding to suggest acute cholecystitis. If further characterization is warranted, right upper quadrant ultrasound may be helpful. 3. 2.5 cm in diameter left ovarian cyst which is abnormal in an 86-year-old patient. Nonemergent pelvic ultrasound could be helpful to further characterize this finding. Additionally, annual sonographic surveillance recommended. Dictated and approved by: Melody Sifuentes M.D. on 11/29/2016 at 11:09 . 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 Admitted for acute kidney injury, dyspnea and hyponatremia. 1. Acute kidney injury, present on admission. Active -Likely secondary to NSAIDs combined with hypovolemia/dehydration due to vomiting. -Pt reports nausea/vomiting since yesterday and increased intake of ibuprofen. Pt also reports recent kidney infection, not treated with antibiotics. -Per chart review, creatinine 0.95 in November 2015. -Creatinine 1.54 on admission -Hold lisinopril -Continue IV fluids -Start ceftriaxone, pending UA/culture -Nephrology consulted, recommendations appreciated. 2. Hyperkalemia and hyponatremia, acute. present on admission. Active -Likely due to dehydration secondary to vomiting. -Sodium on admission 128, potassium 6.2 w/o EKG changes -Started on IV fluids and received 30gm Kayexalate in the ER -Repeat sodium 131, potassium 4.7 -Nephrology consulted and following. -BMP q4h 3. Probable UTI, present on admission. Active -Patient reports dysuria and recent diagnosis of 'kidney infection', not prescribed antibiotics. -UA pending, lactic acid 2.2 and trended up to 5.2 -Start ceftriaxone empirically pending UA/culture 4. Dyspnea, acute. present on admission. Improved -Uncertain etiology, likely secondary to #1 with concern for heart failure. Pt with hx of asthma and questionable COPD. -proBNP 3878, clinically no signs of fluid overload. -d-Dimer in the ER, elevated 1.63. Right lower ext Doppler negative for DVT. -Continue IVFs, supplemental oxygen -Duonebs prn 5. Anemia,unknown chronicity. present on admission. Active -Hb 9.5 on admission. -Monitor H/H 6. Hypertension, chronic. present on admission. Presumed stable. -Currently hypotensive. -Hold home antihypertensives: -amlodipine 5mg bid -clonidine 0.1mg bid -lisinopril 20mg bid -metoprolol tartrate 50mg bid -furosemide 20mg daily, ?recent BID dosing. 7. Osteoarthritis, chronic. present on admission. Active -Patient reports acute change in leg/hip pain that resulted in ER visit and hydrocodone script with subsequent nausea/vomiting and dehydration. -Stop NSAIDs -Continue acetaminophen prn 8. History of asthma/COPD, chronic. present on admission. Presumed stable. -Hold home Spiriva and levabuterol -Duonebs q4h prn. 9. Hypothyroidism, chronic. present on admission. Presumed stable. -Continue home levothyroxine 75mcg daily 10. 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 Presumed stable. -[employer] visit for device check on 11/19/16- pacemaker stable, followup in 3months. 12. History of obstructive sleep apnea, chronic. present on admission. Active. -Reportedly non-compliant with CPAP -Supplemental oxygen as needed 13. History of pre-diabetes, present on admission. Presumed stable. -NextGen last A1c on 12/21/15 6.0 -Glucose 188 -HbA1c pending -Low dose correctional insulin lispro 14. History of GERD, chronic. present on admission. Presumed stable. -continue home omeprazole 20 mg daily Acetaminophen-fever/headache/mild/moderate pain Antiemetics, as needed Bowel regimen, as needed. Disposition: Patient admitted under inpatient status with expected length of stay > 2 midnights for severity of present symptoms, complexities of treatment plan and risk for adverse event Pain Evaluation: Adequate Pain Control VTE Prophylaxis: Sub-Q Heparin (Unfractionated) VTE Mechanical Devices: Venous Foot Pump Resuscitation Status: CPR: Attempt Resuscitation Attending Statement The patient was seen and examined together with Resident/House-Staff on 11/29/16 and I agree with the history, exam and plan as outlined in the note above. Lily Shcaffer DO November 29, 2016 16:49 Nahun Jo December 01, 2016 16:57
[2016-11-29] MEDS: Pantoprazole 40 mg ER24 Tablet PO SCH (20:30)
[2016-11-29 23:52] LABS: COLOR,URINE YELLOW (YELLOW)
[2016-11-29 23:53] LABS: APPEARANCE,URINE CLEAR (CLEAR,HAZY); OCCULT BLOOD,URINE NEGATIVE (NEGATIVE); PH,URINE 5.5 (5.0-8.0); UROBILINOGEN,URINE NORMAL (NORMAL)
[2016-11-30] VITALS (10 sets, daily range): BP systolic 109–149; BP diastolic 62–82; PULSE 95–120; RESP 18–22; O2SAT 90–98
[2016-11-30] MEDS: Heparin 5,000 Unit/mL Inj SUBQ SCH ×3 (01:56→17:16)
[2016-11-30 02:58] LABS: BASOPHILS % (AUTO) 0.2 % (0-3); EOSINOPHILS % (AUTO) 0 % (0-5); MONOCYTES % (AUTO) 9.5 % (4-12); Mean Corpuscular Hemoglobin 32.3 pg (27.0-35.0); NEUTROPHILS % (AUTO) 81.5 % (40-74); Platelet Count 212 bil/L (150-400)
[2016-11-30] MEDS: Pantoprazole 40 mg ER24 Tablet PO SCH ×2 (08:30→21:19)
[2016-11-30] MEDS: Polyethylene Glycol (PEG) 17 Gm Powder PO SCH (10:42)
[2016-11-30] MEDS: guaiFENesin 600 mg ER12 Tablet PO SCH ×2 (11:36→21:18)
--- NOTE | 2016-11-30 13:40 | PCM.PNMED ---
Subjective Date of Service November 30, 2016 Subjective Hospital day 2. Overnight continued to have some tachycardia, and her urine output continues to be somewhat low (of course this is bedside commode and bedpan), and report of consistently elevated potassium. Nursing reports overnight that the patient was somewhat orthopneic, and respiratory status and overall comfort improved when sitting up slightly. Today patient reports that her eyes are burning bilaterally (this started over the last several days), she has not had a bowel movement since Thursday (notes that it was normal at that time), also reports that she has chest congestion and will occasionally cough up white sputum that is not considered significant in amount. She notes some minimal abdominal discomfort, but no urinary complaints. Focused ROS is otherwise negative. Exam Vital Signs Vital Sign - Last Date Time Temp Pulse Resp B/P Pulse Ox O2 Delivery O2 Flow Rate FiO2 11/30/16 12:37 37.5 105 18 149/62 96 Nasal Cannula 2.00 Intake and Output 11/29/16 11/29/16 11/30/16 Cumulative From/Thru 15:00 23:00 07:00 11/29/16 08:37 - 11/30/16 06:31 Intake Total 1000 ml 427 ml 1015 ml 2442 ml Output Total 200 ml 340 ml 540 ml Balance 1000 ml 227 ml 675 ml 1902 ml Intake Oral 100 ml 120 ml 220 ml IV Total 1000 ml 327 ml 895 ml 2222 ml Output Urine Total 200 ml 340 ml 540 ml # Bowel Movements 0 0 Exam General: Obese, Tanzanian-speaking elderly female, in no acute distress, appropriately interactive HEENT: Normocephalic, atraumatic. PERRL, anicteric sclerae. Conjunctiva are mildly injected, with some bilateral eye discharge noted on the eyelashes. Mucous membranes are otherwise moist and pink Neck: Supple, nontender, no JVD, no lymphadenopathy appreciated. Cardiovascular: Regular rate and rhythm with no murmurs, rubs, or gallops appreciated. Radial pulses are 2+ bilaterally Pulmonary: Decreased breath sounds bilaterally, lung sounds coarse bilaterally with faint expiratory wheezing, no crackles or rhonchi. No use of accessory muscles. Nasal cannula in place. Abdomen: Soft, obese, nondistended, minimally tender to deep palpation (without rebound or peritoneal sign), no masses. Bowel tones present. Extremities: No clubbing, cyanosis. There is mild pitting edema in the bilateral lower extremities below the level of the knee. Skin: Normal temperature, decreased turgor, no rash or ulcerations. Neurological: Cranial nerves grossly intact. No focal deficit. Ambulates with cane. Psychiatric: Normal mood and affect. Alert and oriented to person, place, and time. IVs and Medications Medications Reviewed: Medications were reviewed in detail Lab and Diagnostics Laboratory Tests Test 11/29/16 16:50 11/29/16 19:45 11/29/16 20:45 11/29/16 22:50 Lactic Acid Level 5.2mmol/L (0.4-2.0) 2.0mmol/L (0.4-2.0) Sodium Level 133mEq/L (134-144) Potassium Level 4.8mEq/L (3.5-5.2) Chloride Level 96mEq/L (97-108) Carbon Dioxide Level 21mmol/L (18-29) Blood Urea Nitrogen 44mg/dL (8-27) Creatinine 1.59mg/dL (0.57-1.00) Estimat Glomerular Filtration Rate 44mL/min (>59) Glucose Level 157mg/dL (60-99) Calcium Level 7.9mg/dL (8.5-10.1) Thyroid Stimulating Hormone (TSH) 1.840uIU/mL (0.450-4.500) Free Thyroxine 1.44ng/dL (0.82-1.77) Urine Color Yellow (YELLOW) Urine Appearance Clear (CLEAR,HAZY) Urine pH 5.5 (5.0-8.0) Urine Specific [place] 1.015 (1.003-1.035) Urine Protein Negativemg/dL (NEG,TRACE) Urine Glucose (UA) Negativemg/dL (NEGATIVE) Urine Ketones Negativemg/dL (NEGATIVE) Urine Occult Blood Negative (NEGATIVE) Urine Nitrite Negative (NEGATIVE) Urine Bilirubin Negative (NEGATIVE) Urine Urobilinogen Normalmg/dL (NORMAL) Urine Leukocyte Esterase Small (NEGATIVE) Urine RBC 0-2/hpf (0-2) Urine WBC 0-5/hpf (0-5) Urine Epithelial Cells Moderate/hpf (NONE-MOD) Urine Crystals None seen (NONE SEEN) Urine Bacteria Few/hpf (NONE-FEW) Urine Hyaline Casts None/lpf (NONE) Urine Granular Casts None seen (NONE SEEN) Urine Waxy Casts None seen (NONE SEEN) Urine Red Blood Cell Casts None seen (NONE SEEN) Urine White Blood Cell Casts None seen (NONE SEEN) Urine Mucus None seen (None Seen) Urine Trichomonas None seen (NONE SEEN) Urine Yeast None (NONE SEEN) Urinalysis Comment Urine Culture Reflexed Indicated Test 11/29/16 23:00 11/30/16 02:15 11/30/16 04:04 Sodium Level 132mEq/L (134-144) 136mEq/L (134-144) Potassium Level 5.9mEq/L (3.5-5.2) 5.3mEq/L (3.5-5.2) 5.3mEq/L (3.5-5.2) Chloride Level 96mEq/L (97-108) 100mEq/L (97-108) Carbon Dioxide Level 20mmol/L (18-29) 23mmol/L (18-29) Blood Urea Nitrogen 42mg/dL (8-27) 38mg/dL (8-27) Creatinine 1.61mg/dL (0.57-1.00) 1.45mg/dL (0.57-1.00) Estimat Glomerular Filtration Rate 44mL/min (>59) 49mL/min (>59) Glucose Level 129mg/dL (60-99) 147mg/dL (60-99) Lactic Acid Level 1.6mmol/L (0.4-2.0) 1.1mmol/L (0.4-2.0) 1.4mmol/L (0.4-2.0) Calcium Level 8.2mg/dL (8.5-10.1) 8.2mg/dL (8.5-10.1) White Blood Count 6.7th/mm3 (3.8-10.1) Red Blood Count 2.48mil/mm3 (3.90-5.20) Hemoglobin 8.0g/dL (12.0-15.6) Hematocrit 24.8% (35.0-46.0) Mean Corpuscular Volume 100.0fL (81-100) Mean Corpuscular Hemoglobin 32.3pg (27.0-35.0) Mean Corpuscular Hemoglobin Concent 32.3% (32.0-37.0) Red Cell Distribution Width 12.9% (12.3-15.4) Platelet Count 212bil/L (150-400) Neutrophils (%) (Auto) 81.5% (40-74) Lymphocytes (%) (Auto) 8.6% (14-46) Monocytes (%) (Auto) 9.5% (4-12) Eosinophils (%) (Auto) 0% (0-5) Basophils (%) (Auto) 0.2% (0-3) Procalcitonin 0.12ng/mL (0.00-0.08) Microbiology 11/29/16 Blood Culture - Preliminary, Resulted NO GROWTH AFTER 24 HOURS 11/29/16 Urine Culture - Preliminary, Resulted No growth to date Result Diagram: 11/30/16 0215 11/30/16 0404 X-Rays, CTs and MRIs (11/29/16) X-RAY CHEST ONE VIEW, PORTABLE IMPRESSION: No acute cardiopulmonary findings. Stable cardiomegaly. Dictated and approved by: Melody Sifuentes M.D. on 11/29/2016 at 9:05 (11/29/16) US VEINOUS LEG DUPLEX UNILATERAL, RIGHT IMPRESSION: No deep vein thrombosis of the right lower extremity. Dictated and approved by: Melody Sifuentes M.D. on 11/29/2016 at 10:58 (11/29/16) CT CHEST, ABDOMEN AND PELVIS WITHOUT CONTRAST IMPRESSION: 1. No acute intra-abdominal findings. Specifically, no findings to suggest retroperitoneal bleed. 2. Multiple large gallstones within the gallbladder fundus and probable gallstone within the cystic duct. There is probable dense sludge throughout the gallbladder as described above. The gallbladder wall is not well characterized; however there is no pericholecystic fluid or fat stranding to suggest acute cholecystitis. If further characterization is warranted, right upper quadrant ultrasound may be helpful. 3. 2.5 cm in diameter left ovarian cyst which is abnormal in an 86-year-old patient. Nonemergent pelvic ultrasound could be helpful to further characterize this finding. Additionally, annual sonographic surveillance recommended. Dictated and approved by: Melody Sifuentes M.D. on 11/29/2016 at 11:09 . 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 Admitted for acute kidney injury, dyspnea and hyponatremia. 1. Acute kidney injury, present on admission. Active -Likely prerenal azotemia secondary to NSAIDs and lisinopril combined with hypovolemia/dehydration due to vomiting. -Pt also reports recent outpatient kidney infection, not treated with antibiotics. -Per chart review, creatinine 0.95 in November 2015. -Creatinine 1.54 on admission. See labs above -Hold lisinopril -Continue IV fluids per nephrology recommendations (NS at 100 mL/h) -Continue ceftriaxone -Nephrology consulted and we appreciate their expertise. 2. Hyperkalemia, acute. present on admission. Active -Hyperkalemia likely secondary to renal insufficiency in the setting of lisinopril and NSAIDs -On admission potassium 6.2 w/o EKG changes -Started on IV fluids and received 30gm Kayexalate in the ER -Following potassium closely -Nephrology as noted 3. Hypovolemic hyponatremia, acute. Present on admission. Resolved Likely hypovolemia secondary to vomiting Management as noted with IV fluids 4. Dyspnea, acute. present on admission. Stable -Reported productive cough with some concern for upper versus lower respiratory infection -Respiratory PCR swab -Uncertain etiology with potential contribution from #1 with concern for heart failure. -proBNP 3878, clinically no signs of fluid overload. -d-Dimer in the ER, elevated 1.63 (calling into question the possibility of PE) . Right lower ext Doppler negative for DVT. -Continue IVFs, supplemental oxygen -Duonebs prn 5. Nausea and vomiting secondary to narcotic administration. Avoid narcotics as possible Manage nausea conservatively with medications Fluid administration Slowly advance diet as tolerated 6. Anemia,unknown chronicity. present on admission. Active -Hb 9.5 on admission. -Monitor H/H 7. Hypertension, chronic. present on admission. Presumed stable. -Currently normal to hypertensive. -Consideration for restarting one/some of her home antihypertensives: -amlodipine 5mg bid -clonidine 0.1mg bid -lisinopril 20mg bid -metoprolol tartrate 50mg bid -furosemide 20mg daily, ?recent BID dosing. 8. Osteoarthritis, chronic (especially the right hip). present on admission. Active -Patient reports acute change in leg/hip pain that resulted in ER visit and hydrocodone script with subsequent nausea/vomiting and dehydration. -Stopped NSAIDs, and recommend that she not continue NSAIDs at time of discharge -Continue acetaminophen prn 9. History of asthma/COPD, chronic. present on admission. Presumed stable. -There is some mention in previous notes of home Spiriva, but this medication is not present on patient's medication reconciliation. Consider discussing further with patient and family -Duonebs q4h prn. 10. Hypothyroidism, chronic. present on admission. Presumed stable. -Continue home levothyroxine 75mcg daily 11. Third-degree heart block s/p dual chamber pacemaker, 2005. Presumed stable. [facility] pac[facility] stable, followup in 3months. 12. History of obstructive sleep apnea, chronic. present on admission. Active. -Reportedly non-compliant with CPAP -Supplemental oxygen as needed 13. History of pre-diabetes, present on admission. Presumed stable. -[employer] last A1c on 12/21/15 6.0 -Glucose 188 -HbA1c 5.9 -Low dose correctional insulin lispro 14. History of GERD, chronic. present on admission. Presumed stable. -continued home omeprazole 20 mg twice a day (this was converted to Protonix) -Consideration for reducing to a daily dose she has been on this for some time, and it puts her at higher risk of cardiac, stroke, C. difficile complications. 15. Morbid obesity -Recommend weight loss through mostly dietary changes as exercise will be limited by her chronic arthritis Acetaminophen-fever/headache/mild/moderate pain Antiemetics, as needed Bowel regimen, as needed. Patient admitted under inpatient status with expected length of stay > 2 midnights for severity of present symptoms, complexities of treatment plan and risk for adverse event Disposition: Patient likely still 1-2 days away from discharge given her continued low-grade temperatures, tachycardia, shortness of breath. Pain Evaluation: Adequate Pain Control VTE Prophylaxis: Sub-Q Heparin (Unfractionated) VTE Mechanical Devices: Intermittant Pneumatic CD Resuscitation Status: CPR: Attempt Resuscitation Attending Statement The patient was seen and examined together with Resident/House-Staff on 11/30/16 and I agree with the history, exam and plan as outlined in the note above. Clint Funez DO November 30, 2016 13:40 Nahun Jo December 01, 2016 17:04
--- NOTE | 2016-11-30 14:06 | PCM.PNMED ---
Subjective Date of Service November 30, 2016 Subjective Nephrology Progress Note: Attending Dr. Wolf Castillo is an 86-year-old, lady with a past medical history significant for hypertension, morbid obesity, third-degree AV block, status post pacemaker placement, hypothyroid, hypertension, osteoarthritis, who presented to the hospital with a complaint of nausea, vomiting, and right hip pain. Hospital day #2. Overnight: There were no acute events. Telemetry overnight: Sinus rhythm, heart rate 70 to 80s, without ectopy. The patient is resting in bed comfortably and in no acute distress. She endorses multiple complaints including: Headache, shortness of breath, chest pain, left-sided abdominal pain, right-sided hip pain, dysuria which appears to be chronic in nature. She denies vision changes, sore throat, nausea, vomiting , fever, chills, diarrhea or constipation. She is voiding without difficulty. She is up ambulating with a FWW and assistance. . Exam Vital Signs Vital Sign - Last Date Time Temp Pulse Resp B/P Pulse Ox O2 Delivery O2 Flow Rate FiO2 11/30/16 12:37 37.5 105 18 149/62 96 Nasal Cannula 2.00 Intake and Output 11/29/16 11/29/16 11/30/16 Cumulative From/Thru 15:00 23:00 07:00 11/29/16 08:37 - 11/30/16 06:31 Intake Total 1000 ml 427 ml 1015 ml 2442 ml Output Total 200 ml 340 ml 540 ml Balance 1000 ml 227 ml 675 ml 1902 ml Intake Oral 100 ml 120 ml 220 ml IV Total 1000 ml 327 ml 895 ml 2222 ml Output Urine Total 200 ml 340 ml 540 ml # Bowel Movements 0 0 Exam General: Elderly female lying in bed and in no acute distress, morbidly obese, somewhat somnolent but arousable. HEENT: Normocephalic, atraumatic. External ears without defect. Pupils equal, round, and reactive to light. Anicteric sclerae, moist conjunctivae, and no lid lag. Oropharynx free of erythema and cobble stoning with moist mucosa. Neck: Supple with full range of motion. No lymphadenopathy or thyromegaly. Cardiovascular: Regular rhythm, tachycardic, without murmurs, rubs, or gallops appreciated. Pacemaker in place at left upper chest. Pulmonary: Clear to auscultation bilaterally with no crackles, wheezes, or rhonchi. Normal respiratory effort with no use of accessory muscles. Abdomen: Soft, obese, tenderness to palpation in both left quadrants, nondistended, bowel sounds present. No hepatosplenomegaly or masses appreciated. Extremities: No clubbing, cyanosis, or edema. Skin: Normal temperature, turgor, and texture; no rash, ulcers, or subcutaneous nodules appreciated. Neurological: Cranial nerves grossly intact. Psychiatric: Normal mood and affect. Alert and oriented to person, place, and time. . IVs and Medications Medications Reviewed: Medications were reviewed in detail Lab and Diagnostics Item Value Date Time Urine Color Yellow 11/29/162249 Urine Appearance Clear 11/29/162249 Urine pH 5.5 11/29/162249 Urine Specific [place] 1.015 11/29/162249 Urine Protein Negative mg/dL 11/29/162249 Urine Glucose (UA) Negative mg/dL 11/29/162249 Urine Ketones Negative mg/dL 11/29/162249 Urine Occult Blood Negative 11/29/162249 Urine Bilirubin Negative 11/29/162249 Urine Nitrite Negative 11/29/162249 Urine Urobilinogen Normal mg/dL 11/29/162249 Urine Leukocyte Esterase Small 11/29/162249 Urine RBC 0-2 /hpf 11/29/162249 Urine WBC 0-5 /hpf 11/29/162249 Urine Epithelial Cells Moderate /hpf 11/29/16 225 Urine Crystals None seen 11/29/162249 Urine Bacteria Few /hpf 11/29/162249 Urine Hyaline Casts None /lpf 11/29/16 225 Urine Granular Casts None seen 11/29/16 225 Urine Waxy Casts None seen 11/29/16 225 Urine Red Blood Cell Casts None seen 11/29/16 225 Urine White Blood Cell Casts None seen 11/29/16 225 Urine Mucus None seen 11/29/16 225 Urine Trichomonas None seen 11/29/16 225 Urine Yeast None 11/29/162249 Item Value Date Time Calcium Level 8.2 mg/dL L 11/30/16 0404 Procalcitonin 0.12 ng/mL H 11/30/16 040 Result Diagram: 11/30/16 0215 11/30/16 0404 Microbiology Urine culture has no growth to date. Blood culture 2 has no growth after 24 hours. . X-Rays, CTs and MRIs X-RAY CHEST ONE VIEW, PORTABLE IMPRESSION: No acute cardiopulmonary findings. Stable cardiomegaly. Dictated and approved by: Melody Sifuentes M.D. on 11/29/2016 at 9:05 US VEINOUS LEG DUPLEX UNILATERAL, RIGHT IMPRESSION: No deep vein thrombosis of the right lower extremity. Dictated and approved by: Melody Sifuentes M.D. on 11/29/2016 at 10:58 CT CHEST, ABDOMEN AND PELVIS WITHOUT CONTRAST IMPRESSION: 1. No acute intra-abdominal findings. Specifically, no findings to suggest retroperitoneal bleed. 2. Multiple large gallstones within the gallbladder fundus and probable gallstone within the cystic duct. There is probable dense sludge throughout the gallbladder as described above. The gallbladder wall is not well characterized; however there is no pericholecystic fluid or fat stranding to suggest acute cholecystitis. If further characterization is warranted, right upper quadrant ultrasound may be helpful. 3. 2.5 cm in diameter left ovarian cyst which is abnormal in an 86-year-old patient. Nonemergent pelvic ultrasound could be helpful to further characterize this finding. Additionally, annual sonographic surveillance recommended. Dictated and approved by: Melody Sifuentes M.D. on 11/29/2016 at 11:09 . Assessment & Plan Amber Castillo is an 86-year-old, lady with a past medical history significant for hypertension, morbid obesity, third-degree AV block, status post pacemaker placement, hypothyroid, hypertension, osteoarthritis, who presented to the hospital with a complaint of nausea, vomiting, and right hip pain. Hospital day #2. Assessment: 1. Acute kidney injury. Likely due to prerenal azotemia in the setting of lisinopril, NSAID and diuretic use, and decreased PO intake. 2. Hyperkalemia secondary to renal insufficiency, TONI inhibitor, and NSAIDs. 3. Hypovolemic hyponatremia. 4. New onset nausea, vomiting after narcotics use. 5. Chronic right hip pain. 6. Obesity. 7. Third-degree AV block status post pacemaker placement. 8. Hypothyroid. Plan: Continue to hold antihypertensives. Septic workup has been nonrevealing. Continue normal saline at 80 mL/hr 1L bag and encourage PO fluid intake. May want to consider one dose of Kayexalate for hyperkalemia. No need for renal replacement therapy at this time. Thank you for the consultation. We will monitor along with you. . VTE Prophylaxis: Sub-Q Heparin (Unfractionated) VTE Mechanical Devices: Intermittant Pneumatic CD Resuscitation Status: CPR: Attempt Resuscitation Lolly Montenegro DO November 30, 2016 14:06 infection -Respiratory PCR swab -Uncertain etiology with potential contribution from #1 with concern for heart failure. -proBNP 3878, clinically no signs of fluid overload. -d-Dimer in the ER, elevated 1.63 (calling into question the possibility of PE) . Right lower ext Doppler negative for DVT. -Continue IVFs, supplemental oxygen -Duonebs prn 5. Nausea and vomiting secondary to narcotic administration. Avoid narcotics as possible Manage nausea conservatively with medications Fluid administration Slowly advance diet as tolerated 6. Anemia,unknown chronicity. present on admission. Active -Hb 9.5 on admission. -Monitor H/H 7. Hypertension, chronic. present on admission. Presumed stable. -Currently normal to hypertensive. -Consideration for restarting one/some of her home antihypertensives: -amlodipine 5mg bid -clonidine 0.1mg bid -lisinopril 20mg bid -metoprolol tartrate 50mg bid -furosemide 20mg daily, ?recent BID dosing. 8. Osteoarthritis, chronic (especially the right hip). present on admission. Active -Patient reports acute change in leg/hip pain that resulted in ER visit and hydrocodone script with subsequent nausea/vomiting and dehydration. -Stopped NSAIDs, and recommend that she not continue NSAIDs at time of discharge -Continue acetaminophen prn 9. History of asthma/COPD, chronic. present on admission. Presumed stable. -There is some mention in previous notes of home Spiriva, but this medication is not present on patient's medication reconciliation. Consider discussing further with patient and family -Duonebs q4h prn. 10. Hypothyroidism, chronic. present on admission. Presumed stable. -Continue home levothyroxine 75mcg daily 11. Third-degree heart block s/p dual chamber pacemaker, 2005. Presumed stable. -[employer] visit for device check on 11/19/16- pacemaker stable, followup in 3months. 12. History of obstructive sleep apnea, chronic. present on admission. Active. -Reportedly non-compliant with CPAP -Supplemental oxygen as needed 13. History of pre-diabetes, present on admission. Presumed stable. -[employer] last A1c on 12/21/15 6.0 -Glucose 188 -HbA1c 5.9 -Low dose correctional insulin lispro 14. History of GERD, chronic. present on admission. Presumed stable. -continued home omeprazole 20 mg twice a day (this was converted to Protonix) -Consideration for reducing to a daily dose she has been on this for some time, and it puts her at higher risk of cardiac, stroke, C. difficile complications. 15. Morbid obesity -Recommend weight loss through mostly dietary changes as exercise will be limited by her chronic arthritis Acetaminophen-fever/headache/mild/moderate pain Antiemetics, as needed Bowel regimen, as needed. Patient admitted under inpatient status with expected length of stay > 2 midnights for severity of present symptoms, complexities of treatment plan and risk for adverse event Disposition: Patient likely still 1-2 days away from discharge given her continued low-grade temperatures, tachycardia, shortness of breath. VTE Prophylaxis: Sub-Q Heparin (Unfractionated) VTE Mechanical Devices: Intermittant Pneumatic CD Resuscitation Status: CPR: Attempt Resuscitation Lolly Montenegro DO November 30, 2016 14:06
[2016-11-30] MEDS: Artificial Tears 15 mL Ophthalmic Solution BOTH_EYES PRN ×3 (14:23→21:19)
[2016-11-30] MEDS: cefTRIAXone Inj 2,000 MG in Dextrose 5% Minibag Plus 50 ML IV SCH (17:16)
[2016-11-30] MEDS: 0.9% Sodium Chloride 1,000 ML IV SCH (21:19)
[2016-12-01] VITALS (7 sets, daily range): BP systolic 121–146; BP diastolic 74–83; PULSE 103–126; RESP 20–24; O2SAT 95–97
[2016-12-01] MEDS: Heparin 5,000 Unit/mL Inj SUBQ SCH ×3 (01:55→16:56)
[2016-12-01 03:17] LABS: BASOPHILS % (AUTO) 0.3 % (0-3); EOSINOPHILS % (AUTO) 1.6 % (0-5); MONOCYTES % (AUTO) 12.5 % (4-12); Mean Corpuscular Hemoglobin 31.6 pg (27.0-35.0); NEUTROPHILS % (AUTO) 72.8 % (40-74); Platelet Count 223 bil/L (150-400)
[2016-12-01 04:03] LABS: Magnesium 2.2 mg/dL (1.6-2.6)
[2016-12-01] MEDS: 0.9% Sodium Chloride 1,000 ML IV SCH (08:39)
--- NOTE | 2016-12-01 10:06 | PCM.PNMED ---
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 Admitted for acute kidney injury, dyspnea and hyponatremia. Hospital day #3. Overnight, no acute events. Per nursing, patient without complaint of coughing or difficulty breathing but still requiring 2.5L of supplemental O2 to maintain SpO2 >92%. Patient remains in Afib with rate in the one teens to 120s. She denies palpitations or chest pressure. She does report chest discomfort that is worse with coughing. She continues to report a cough productive for white sputum and denies fever, chills, abdominal pain, nausea or vomiting. A respiratory viral panel was ordered and results are pending. Exam Vital Signs Vital Sign - Last Date Time Temp Pulse Resp B/P Pulse Ox O2 Delivery O2 Flow Rate FiO2 12/01/16 03:26 37.6 126 20 121/74 96 Nasal Cannula 2.50 Intake and Output 11/30/16 11/30/16 12/01/16 Cumulative From/Thru 15:00 23:00 07:00 11/29/16 08:37 - 12/01/16 05:00 Intake Total 1033 ml 100 ml 3575 ml Output Total 540 ml Balance 1033 ml 100 ml 3035 ml Intake Oral 300 ml 100 ml 620 ml IV Total 733 ml 2955 ml Output Urine Total 540 ml # Voids 3 2 5 # Bowel Movements 1 1 Exam General: Obese, , elderly female, in no acute distress, appropriately interactive HEENT: Normocephalic, atraumatic. PERRLA, anicteric sclerae, conjunctiva mildly injected. Mucous membranes moist and pink. Neck: Supple, nontender, no JVD, no lymphadenopathy appreciated. Cardiovascular: Tachycardic, irregularly irregular rhythm with no murmurs, rubs , or gallops appreciated Pulmonary: Decreased breath sounds bilaterally, lung sounds coarse with mild expiratory wheezing, no crackles or rhonchi. No use of accessory muscles. Nasal cannula in place. Abdomen: Soft, obese, nondistended, mild/diffuse tenderness to palpation, no masses. Bowel tones present. Extremities: mild pitting edema in the bilateral lower extremities below the knee. No cyanosis or clubbing Skin: Normal temperature/turgor, no rash or ulcerations. Neurological: Cranial nerves grossly intact. No focal deficit. Ambulates with cane. Psychiatric: Normal mood and affect. Alert and oriented to person, place, and time. IVs and Medications Medications Reviewed: Medications were reviewed in detail Lab and Diagnostics Laboratory Tests Test 11/30/16 14:25 12/01/16 02:40 Hemoglobin 8.0g/dL (12.0-15.6) 8.4g/dL (12.0-15.6) Hematocrit 25.2% (35.0-46.0) 27.4% (35.0-46.0) Potassium Level 5.2mEq/L (3.5-5.2) 5.1mEq/L (3.5-5.2) Magnesium Level 2.3mg/dL (1.6-2.6) 2.2mg/dL (1.6-2.6) White Blood Count 6.7th/mm3 (3.8-10.1) Red Blood Count 2.66mil/mm3 (3.90-5.20) Mean Corpuscular Volume 103.0fL (81-100) Mean Corpuscular Hemoglobin 31.6pg (27.0-35.0) Mean Corpuscular Hemoglobin Concent 30.7% (32.0-37.0) Red Cell Distribution Width 13.3% (12.3-15.4) Platelet Count 223bil/L (150-400) Neutrophils (%) (Auto) 72.8% (40-74) Lymphocytes (%) (Auto) 12.5% (14-46) Monocytes (%) (Auto) 12.5% (4-12) Eosinophils (%) (Auto) 1.6% (0-5) Basophils (%) (Auto) 0.3% (0-3) Sodium Level 139mEq/L (134-144) Chloride Level 102mEq/L (97-108) Carbon Dioxide Level 24mmol/L (18-29) Blood Urea Nitrogen 24mg/dL (8-27) Creatinine 1.14mg/dL (0.57-1.00) Estimat Glomerular Filtration Rate 65mL/min (>59) Glucose Level 110mg/dL (60-99) Calcium Level 8.2mg/dL (8.5-10.1) Procalcitonin 0.11ng/mL (0.00-0.08) . Result Diagram: 12/01/16 0240 12/01/16 0240 Microbiology 11/29/16 Blood Culture - NO GROWTH AFTER 24 HOURS 11/30/16 Resp viral panel- pending 11/29/16 Urine Culture - Mixed Urogenital Kindra X-Rays, CTs and MRIs X-RAY CHEST ONE VIEW, PORTABLE IMPRESSION: No acute cardiopulmonary findings. Stable cardiomegaly. Dictated and approved by: Melody Sifuentes M.D. on 11/29/2016 at 9:05 US VEINOUS LEG DUPLEX UNILATERAL, RIGHT IMPRESSION: No deep vein thrombosis of the right lower extremity. Dictated and approved by: Melody Sifuentes M.D. on 11/29/2016 at 10:58 CT CHEST, ABDOMEN AND PELVIS WITHOUT CONTRAST IMPRESSION: 1. No acute intra-abdominal findings. Specifically, no findings to suggest retroperitoneal bleed. 2. Multiple large gallstones within the gallbladder fundus and probable gallstone within the cystic duct. There is probable dense sludge throughout the gallbladder as described above. The gallbladder wall is not well characterized; however there is no pericholecystic fluid or fat stranding to suggest acute cholecystitis. If further characterization is warranted, right upper quadrant ultrasound may be helpful. 3. 2.5 cm in diameter left ovarian cyst which is abnormal in an 86-year-old patient. Nonemergent pelvic ultrasound could be helpful to further characterize this finding. Additionally, annual sonographic surveillance recommended. Dictated and approved by: Melody Sifuentes M.D. on 11/29/2016 at 11:09 . 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 Admitted for acute kidney injury, dyspnea and hyponatremia. Hospital day #3. 1. Atrial fibrillation. not present on admission. Active -Likely new onset, unknown if prior diagnosis and has been in sinus rhythm. -HR consistently in high 100s to 120s. Patient asymptomatic. -Home medications include: metoprolol tartrate 50mg BID -Resume metoprolol tartrate at 25mg BID -[id number] score 4 -Echocardiogram, pending -Start aspirin for anticoagulation. -Hold off on initiating warfarin due. -Will need close outpatient followup for consideration of fpc anticoagulation. 2. Acute kidney injury, present on admission. Improving -Likely prerenal azotemia secondary to NSAIDs and lisinopril combined with hypovolemia/dehydration due to vomiting. -Pt also reports recent outpatient kidney infection, not treated with antibiotics. -Per chart review, creatinine 0.95 in November 2015. -Creatinine 1.54 on admission. See labs above -Hold lisinopril -Continue IV fluids per nephrology recommendations (NS at 80 mL/h) -Stop ceftriaxone, UA/culture no evidence of infection -Nephrology consulted and we appreciate their expertise. 3. Hyperkalemia, acute. present on admission. Improved -Hyperkalemia likely secondary to renal insufficiency in the setting of lisinopril and NSAIDs -On admission potassium 6.2 w/o EKG changes -Started on IV fluids and received 30gm Kayexalate in the ER -Following potassium closely -Nephrology as noted 4. Hypovolemic hyponatremia, acute. Present on admission. Resolved -Likely hypovolemia secondary to vomiting -Management as noted with IV fluids 5. Dyspnea, acute. present on admission. Improved -Reported productive cough with some concern for upper versus lower respiratory infection -Uncertain etiology with potential contribution from #1 with concern for heart failure. -proBNP 3878, clinically no signs of fluid overload. -d-Dimer in the ER, elevated 1.63 (calling into question the possibility of PE) . Right lower ext Doppler negative for DVT. -Continue IVFs, supplemental oxygen -Respiratory PCR swab- results pending. -Duonebs prn 6. Nausea and vomiting, acute. present on admission. Resolved. -Secondary to narcotic administration. -Avoid narcotics -Anti-emetics as needed -IV fluids as above -Slowly advance diet as tolerated. 7. Anemia,unknown chronicity. present on admission. Stable -Hb 9.5 on admission. -Monitor H/H 8. Hypertension, chronic. present on admission. Presumed stable. -Currently normal to hypertensive. -Consideration for restarting one/some of her home antihypertensives: -amlodipine 5mg bid -clonidine 0.1mg bid -lisinopril 20mg bid -metoprolol tartrate 50mg bid -furosemide 20mg daily, ?recent BID dosing. -Start metoprolol tartrate, as above in #1 9. Osteoarthritis, chronic (especially the right hip). present on admission. Presumed stable. -Patient reports acute change in leg/hip pain that resulted in ER visit and hydrocodone script with subsequent nausea/vomiting and dehydration. -Stopped NSAIDs, and recommend that she not continue NSAIDs at time of discharge -Continue acetaminophen prn 10. History of asthma/COPD, chronic. present on admission. Presumed stable. -There is some mention in previous notes of home Spiriva, but this medication is not present on patient's medication reconciliation. Consider discussing further with patient and family -Duonebs q4h prn. 11. Hypothyroidism, chronic. present on admission. Presumed stable. -Continue home levothyroxine 75mcg daily 12. 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 Presumed stable. -[facility] visit for device check on 11/19/16- pacemaker stable, followup in 3months. 13. History of obstructive sleep apnea, chronic. present on admission. Active. -Reportedly non-compliant with CPAP -Supplemental oxygen as needed 14. History of pre-diabetes, present on admission. Presumed stable. -NextGen last A1c on 12/21/15 6.0 -Glucose 188 -HbA1c 5.9 -Low dose correctional insulin lispro 15. History of GERD, chronic. present on admission. Presumed stable. -Continued home omeprazole 20 mg twice a day (this was converted to Protonix) -Consideration for reducing to a daily dose she has been on this for some time, and it puts her at higher risk of cardiac, stroke, C. difficile complications. 16. Morbid obesity -Recommend weight loss through mostly dietary changes as exercise will be limited by her chronic arthritis Acetaminophen-fever/headache/mild/moderate pain Antiemetics, as needed Bowel regimen, as needed. Disposition: Patient likely still 1-2 days away from discharge given her continued shortness of breath and tachycardia. Pain Evaluation: Adequate Pain Control VTE Prophylaxis: Sub-Q Heparin (Unfractionated) VTE Mechanical Devices: Intermittant Pneumatic CD Resuscitation Status: CPR: Attempt Resuscitation Attending Statement The patient was seen and examined together with Resident/House-Staff on 12/01/16 and I agree with the history, exam and plan as outlined in the note above. Lily Schaffer DO December 01, 2016 07:57 Nahun Jo December 01, 2016 17:11
[2016-12-01] MEDS: Artificial Tears 15 mL Ophthalmic Solution BOTH_EYES PRN ×2 (10:09→16:56)
[2016-12-01] MEDS: guaiFENesin 600 mg ER12 Tablet PO SCH ×2 (10:10→22:22)
[2016-12-01] MEDS: Polyethylene Glycol (PEG) 17 Gm Powder PO SCH (10:10)
[2016-12-01] MEDS: Pantoprazole 40 mg ER24 Tablet PO SCH ×2 (10:10→22:23)
[2016-12-01] MEDS ORDERED: Albuterol-Ipratropium 3 mL Inhalation Solution NEB PRN (10:40)
--- NOTE | 2016-12-01 11:32 | PCM.PNNEPH ---
Subjective Date of Service December 01, 2016 Subjective The patient was seen today along with her daughter provided interpretation. Only complaints this morning his son-in-law and some mild resting dyspnea. She denies any chest pain but states that this is associated with nasal congestion and considerable postnasal drip. She does have a history of asthma and uses inhalers as an outpatient basis. In reviewing her medications I do not see that any have been ordered. Her blood pressure has ranged from 100 140. Intake and output last 24 hours shows her intake of 2048 and 340 in urine output. Morning her hemoglobin is 9.4, sodium is 139, potassium 5.1, chloride 102, bicarbonate 24, BUN and creatinine are 24 and 1.14. Exam Vital Signs Vital Sign - Last Date Time Temp Pulse Resp B/P Pulse Ox O2 Delivery O2 Flow Rate FiO2 12/01/16 10:04 37.6 114 22 136/79 95 Nasal Cannula 2.00 Intake and Output 11/30/16 11/30/16 12/01/16 Cumulative From/Thru 15:00 23:00 07:00 11/29/16 08:37 - 12/01/16 05:00 Intake Total 1033 ml 100 ml 3575 ml Output Total 540 ml Balance 1033 ml 100 ml 3035 ml Intake Oral 300 ml 100 ml 620 ml IV Total 733 ml 2955 ml Output Urine Total 540 ml # Voids 3 2 5 # Bowel Movements 1 1 Exam HEENT examination is remarkable for pale sclera. Neck is supple without adenopathy or thyromegaly however there were some moderate jugular venous distention at 90. Pulmonary exam showed diffuse expiratory wheezes throughout all lung katz bilaterally. Breath sounds were diminished in both bases. Heart was regular and rhythmical with a soft systolic murmur. Abdomen is soft without any tenderness rebound guarding masses or hepatosplenomegaly. Extremities do not show any evidence of any clubbing, cyanosis, or edema. Skin turgor was good. Lab and Diagnostics Result Diagram: 12/01/16 0240 12/01/16 0240 Microbiology 11/29/16 Blood Culture - NO GROWTH AFTER 24 HOURS 11/30/16 Resp viral panel- pending 11/29/16 Urine Culture - Mixed Urogenital Kindra X-Rays, CTs and MRIs X-RAY CHEST ONE VIEW, PORTABLE IMPRESSION: No acute cardiopulmonary findings. Stable cardiomegaly. Dictated and approved by: Melody Sifuentes M.D. on 11/29/2016 at 9:05 US VEINOUS LEG DUPLEX UNILATERAL, RIGHT IMPRESSION: No deep vein thrombosis of the right lower extremity. Dictated and approved by: Melody Sifuentes M.D. on 11/29/2016 at 10:58 CT CHEST, ABDOMEN AND PELVIS WITHOUT CONTRAST IMPRESSION: 1. No acute intra-abdominal findings. Specifically, no findings to suggest retroperitoneal bleed. 2. Multiple large gallstones within the gallbladder fundus and probable gallstone within the cystic duct. There is probable dense sludge throughout the gallbladder as described above. The gallbladder wall is not well characterized; however there is no pericholecystic fluid or fat stranding to suggest acute cholecystitis. If further characterization is warranted, right upper quadrant ultrasound may be helpful. 3. 2.5 cm in diameter left ovarian cyst which is abnormal in an 86-year-old patient. Nonemergent pelvic ultrasound could be helpful to further characterize this finding. Additionally, annual sonographic surveillance recommended. Dictated and approved by: Melody Sifuentes M.D. on 11/29/2016 at 11:09 . Plan Impression Pressure #1 drug induced acute kidney injury which appears to be resolving #2 hyperkalemia which is resolving #3 hypertension with hypertensive heart disease and hypertensive nephrosclerosis number for acute asthma Recommendations #1 is she is tolerating a diet I would like to cut back on her IV fluids. I will also give her a stat DuoNeb treatment and will write for this every 6 hours and when necessary. I will last the primary team to follow up on this. Laith Patel DO December 01, 2016 11:32
--- NOTE | 2016-12-01 14:33 | DRSVH ---
[facility] [address] [place] [address] Echocardiogram Report Name: LUI LAWRENCE DStudy Date : 017 Height: 54 in Hospital Exam Location: [facility] Weight: 201 lb Gender: Female BSA: 1.7 m2 : 1930 Age: 86 yrs BP: 121/74 mmHg Reason For Study: SOB, CHEST PAIN History: PACEMAKER Ordering Physician: HOSPITALIST [facility] Performed By: [place] Referring Physician: [facility] [place], DR. LINDSEY Interpretation Summary 1. Normal left ventricular size with normal wall thickness and hyperdynamic systolic function. 2. Grossly normal right ventricular size with normal systolic function. The estimated RVSP is 38 mm Hg with an estimated low right atrial pressure. 3. No evidence for significant valvular pathology Compared to the previous study (images and report reviewed), the rhythm has changed; tricuspid regurgitation is now noted. Procedure: A two-dimensional transthoracic echocardiogram with color flow and Doppler was performed. Image quality is poor. A contrast injection of Definity was performed to improve assessment of LV function. Contrast was injected into an intravenous site in the left arm. A total of 3 cc of contrast was given. Comparison is made with the echocardiogram of 06-30-2013. The patient was in atrial fibrillation with rapid ventricular response during the exam with a heart rate exceeding 100 bpm. The heart rate ranged between 101-129 bpm during the study. The patient did well with the Definity Contrast. Left Ventricle: The left ventricle is normal in size. Left ventricular wall thickness is at the upper limits of normal. MIldly elevated outflow tract velocities (associated peak gradient around 10 mm Hg). The left ventricle is hyperdynamic. Diastolic function could not be accurately assessed due to atrial fibrillation. Right Ventricle: There is a pacemaker lead in the right ventricle. The right ventricle is grossly normal size. The right ventricular systolic function is normal. Atria: The left atrium is severely dilated. Right atrial size is normal. There is no Doppler evidence for an atrial septal defect. Mitral Valve: The mitral valve is not well visualized. The mitral valve leaflets are mildly calcified. There is mild mitral annular calcification. There is mild mitral regurgitation. Aortic Valve: The aortic valve is not well visualized. The calculated aortic valve area is 1.7 cm2. The peak aortic velocity is 2.1 m/sec. The aortic valve mean gradient is 10 mmHg. The peak aortic velocity on the previous exam was 1.6 m/sec. Tricuspid Valve: The tricuspid valve leaflets are thin and pliable. There is mild to moderate tricuspid regurgitation. The right ventricular systolic pressure is estimated at 35 mmHg assuming a right atrial pressure of 3 mm Hg. Pulmonic Valve: The pulmonic valve is not well visualized. There is no pulmonic valvular regurgitation. Great Vessels: The aortic root is normal size. The ascending aorta could not be visualized. The pulmonary is not well visualized. The IVC is of normal diameter and collapses greater than 50% with a sniff. This suggests a low right atrial pressure of 3 mm Hg. Pericardium/ Pleura There is no pericardial effusion. There is probable fat pad noted. There is no pleural effusion. MMode/2D Measurements & Calculations LVIDd: 4.2 cm LA dimension: 4.5 cm RA long axis LVOT diam: 1.7 cm LVIDs: 2.2 cm AoV Opening FS: 48.6 % LA A2 area: 28.2 cm RA area IVSd: 0.92 cm LA A4 area: 32.7 cm Ao root diam LVPWd: 1.1 cm LA length (vol) : 19.3 cm RA vol Ao Arch Diam (Prox LA vol: 115.3 ml : 55.3 ml Trans): 3.2 cm LA vol index RA : 31.9 mm2 : 66.5 ml/m2 LV kelly. diameter/BSA LV sys. diameter/BSA RVD2 (mid) (cm/m^2): 2.5 (cm/m^2): 1.3 : 3.5 cm Doppler Measurements & Calculations Ao V2 max MV E max josé manuel Med Peak E' José Manuel TR max josé manuel : 213.8 cm/sec : 165.6 cm/sec : 282.8 cm/sec Ao max PG MV P1/2t: 69.7 msec E/E' med: 22.3 TR max PG : 18.4 mmHg Lat Peak E' José Manuel : 32.3 mmHg Ao mean PG MVA(VTI): 1.8 cm2 PA V2 max E/E' lat: 17.6 : 121.4 cm/sec LVOT Max José Manuel E/e' average PA mean PG : 160.2 cm/sec PA Accel Time ROBBY(I,D): 1.7 cm : 0.06 sec sev ratio MV V2 mean MV P1/2t max josé manuel Ao V2 mean LV V1 max PG : 91.0 cm/sec : 146.1 cm/sec MV mean PG MVA(P1/2t): 3.2 cm2 Ao V2 VTI: 33.1 cmLV V1 VTI ROBBY(V,D): 1.8 cm2 : 23.6 cm MV V2 VTI: 30.2 cm PA V2 mean ROBBY indexed to BSA : 85.9 cm/sec (cm^2/m^2): 0.97 Reading Physician:02:32 PM
[2016-12-02] VITALS (11 sets, daily range): BP systolic 138–162; BP diastolic 59–73; PULSE 92–103; RESP 16–22; O2SAT 96–99
[2016-12-02] MEDS: Heparin 5,000 Unit/mL Inj SUBQ SCH ×4 (02:17→23:55)
[2016-12-02] MEDS: Levalbuterol 1.25 mg/0.5mL Inhalation Solution NEB PRN ×2 (02:32→15:20)
[2016-12-02 03:11] LABS: BASOPHILS % (AUTO) 0.1 % (0-3); EOSINOPHILS % (AUTO) 2.9 % (0-5); MONOCYTES % (AUTO) 9.4 % (4-12); Mean Corpuscular Hemoglobin 32.3 pg (27.0-35.0); Mean Corpuscular Volume 104.3 fL (81-100); NEUTROPHILS % (AUTO) 77.8 % (40-74); Platelet Count 219 bil/L (150-400)
[2016-12-02] MEDS: Pantoprazole 40 mg ER24 Tablet PO SCH ×2 (08:31→21:08)
[2016-12-02] MEDS: guaiFENesin 600 mg ER12 Tablet PO SCH ×2 (08:31→21:08)
[2016-12-02] MEDS: Polyethylene Glycol (PEG) 17 Gm Powder PO SCH (08:31)
--- NOTE | 2016-12-02 11:39 | PCM.PNMED ---
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 Admitted for acute kidney injury, dyspnea and hyponatremia. Per nursing, patient complaining of dyspnea and requiring 2.5L nasal cannula to maintain SpO2 >90%. Resumed home dosing of metoprolol tartrate, 50mg bid, yesterday for rate control with heart rate in high 90s-low to one teens overnight.Today patient reports left sided chest tightness and pain as well as difficulty breathing mainly at night. Exam Vital Signs Vital Sign - Last Date Time Temp Pulse Resp B/P Pulse Ox O2 Delivery O2 Flow Rate FiO2 12/02/16 02:32 96 18 99 Nasal Cannula 2.50 12/02/16 02:22 37.2 141/65 Intake and Output 12/01/16 12/01/16 12/02/16 Cumulative From/Thru 15:00 23:00 07:00 11/29/16 08:37 - 12/02/16 06:17 Intake Total 1213 ml 200 ml 4988 ml Output Total 540 ml Balance 1213 ml 200 ml 4448 ml Intake Oral 200 ml 200 ml 1020 ml IV Total 1013 ml 3968 ml Output Urine Total 540 ml # Voids 3 2 10 # Bowel Movements 1 2 Exam General: Obese, , elderly female, in no acute distress, appropriately interactive HEENT: Normocephalic, atraumatic. PERRLA, mucous membranes moist and pink. Neck: Supple, nontender, no JVD appreciated Cardiovascular: Tachycardic, irregularly irregular rhythm with no murmurs, rubs , or gallops appreciated Pulmonary: Decreased breath sounds bilaterally, mild expiratory wheezing, no crackles or rhonchi. No use of accessory muscles. Abdomen: Soft, obese, nondistended, mild/diffuse tenderness to palpation, no masses. Bowel tones present. Extremities: mild pitting edema in the bilateral lower extremities below the knee. No cyanosis or clubbing Skin: Normal temperature/turgor, no rash or ulcerations. Neurological: Cranial nerves grossly intact. No focal deficit. Ambulates with cane. IVs and Medications Medications Reviewed: Medications were reviewed in detail Lab and Diagnostics Laboratory Tests Test 12/02/16 03:05 White Blood Count 6.8th/mm3 (3.8-10.1) Red Blood Count 2.57mil/mm3 (3.90-5.20) Hemoglobin 8.3g/dL (12.0-15.6) Hematocrit 26.8% (35.0-46.0) Mean Corpuscular Volume 104.3fL (81-100) Mean Corpuscular Hemoglobin 32.3pg (27.0-35.0) Mean Corpuscular Hemoglobin Concent 31.0% (32.0-37.0) Red Cell Distribution Width 13.2% (12.3-15.4) Platelet Count 219bil/L (150-400) Neutrophils (%) (Auto) 77.8% (40-74) Lymphocytes (%) (Auto) 9.5% (14-46) Monocytes (%) (Auto) 9.4% (4-12) Eosinophils (%) (Auto) 2.9% (0-5) Basophils (%) (Auto) 0.1% (0-3) Sodium Level 140mEq/L (134-144) Potassium Level 5.3mEq/L (3.5-5.2) Chloride Level 104mEq/L (97-108) Carbon Dioxide Level 24mmol/L (18-29) Blood Urea Nitrogen 20mg/dL (8-27) Creatinine 1.03mg/dL (0.57-1.00) Estimat Glomerular Filtration Rate 73mL/min (>59) Glucose Level 114mg/dL (60-99) Calcium Level 8.3mg/dL (8.5-10.1) Total Bilirubin 0.3mg/dL (0.0-1.2) Aspartate Amino Transf (AST/SGOT) 34U/L (0-50) Alanine Aminotransferase (ALT/SGPT) 31U/L (0-32) Alkaline Phosphatase 97U/L (25-165) Total Protein 6.2g/dL (6.4-8.4) Albumin 3.3g/dL (3.4-5.0) Microbiology 11/29/16 Blood Culture - No growth at 2 days 11/30/16 Resp Viral (PCR) - Negative 11/29/16 Urine Culture - Mixed Urogenital Kindra Result Diagram: 12/02/16 8461 12/02/16 0305 Microbiology 11/29/16 Blood Culture - NO GROWTH AFTER 24 HOURS 11/30/16 Resp viral panel- pending 11/29/16 Urine Culture - Mixed Urogenital Kindra X-Rays, CTs and MRIs X-RAY CHEST ONE VIEW, PORTABLE IMPRESSION: No acute cardiopulmonary findings. Stable cardiomegaly. Dictated and approved by: Melody Sifuentes M.D. on 11/29/2016 at 9:05 US VEINOUS LEG DUPLEX UNILATERAL, RIGHT IMPRESSION: No deep vein thrombosis of the right lower extremity. Dictated and approved by: Melody Sifuentes M.D. on 11/29/2016 at 10:58 CT CHEST, ABDOMEN AND PELVIS WITHOUT CONTRAST IMPRESSION: 1. No acute intra-abdominal findings. Specifically, no findings to suggest retroperitoneal bleed. 2. Multiple large gallstones within the gallbladder fundus and probable gallstone within the cystic duct. There is probable dense sludge throughout the gallbladder as described above. The gallbladder wall is not well characterized; however there is no pericholecystic fluid or fat stranding to suggest acute cholecystitis. If further characterization is warranted, right upper quadrant ultrasound may be helpful. 3. 2.5 cm in diameter left ovarian cyst which is abnormal in an 86-year-old patient. Nonemergent pelvic ultrasound could be helpful to further characterize this finding. Additionally, annual sonographic surveillance recommended. Dictated and approved by: Melody Sifuentes M.D. on 11/29/2016 at 11:09 . 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 Admitted for acute kidney injury, dyspnea and hyponatremia. 1. Atrial fibrillation. not present on admission. Active -Likely new onset, unknown if prior diagnosis and has been in sinus rhythm. -HR consistently in high 100s to 120s, high 90s to low 100s with metoprolol. Patient asymptomatic. -Continue home metoprolol tartrate at 50mg BID -[id number] score 4 -Echocardiogram, pending -Continue aspirin for anticoagulation, outpatient followup for consideration of warfarin. 2. Acute kidney injury, present on admission. Improving -Likely prerenal azotemia secondary to NSAIDs and lisinopril combined with hypovolemia/dehydration due to vomiting. -Pt also reports recent outpatient kidney infection, not treated with antibiotics. -Per chart review, creatinine 0.95 in November 2015. -Creatinine 1.54 on admission. See labs above -Hold lisinopril -Continue IV fluids per nephrology recommendations (NS at 80 mL/h) -Stop ceftriaxone, UA/culture no evidence of infection -Nephrology consulted and we appreciate their expertise. 3. Hyperkalemia, acute. present on admission. Improved -Hyperkalemia likely secondary to renal insufficiency in the setting of lisinopril and NSAIDs -On admission potassium 6.2 w/o EKG changes -Started on IV fluids and received 30gm Kayexalate in the ER -Following potassium closely -Nephrology as noted 4. Hypovolemic hyponatremia, acute. Present on admission. Resolved -Likely hypovolemia secondary to vomiting -Management as noted with IV fluids 5. Dyspnea, acute. present on admission. Active -Uncertain etiology, possibly asthma exacerbation, CHF or potential contribution from GALO. -Resp viral PCR- negative. -proBNP 3878, clinically no signs of fluid overload. -d-Dimer in the ER, elevated 1.63. Right lower ext Doppler negative for DVT. -CT angio ordered. Discussed use of contrast with nephrology, who recommend 1/ 2NS at 60mls/hr prior to scan and for 12hrs after. -Duonebs prn 6. Nausea and vomiting, acute. present on admission. Resolved. -Secondary to narcotic administration. -Avoid narcotics -Anti-emetics as needed -IV fluids as above -Slowly advance diet as tolerated. 7. Anemia,unknown chronicity. present on admission. Stable -Hb 9.5 on admission. -Monitor H/H 8. Hypertension, chronic. present on admission. Presumed stable. -Currently normal to hypertensive. -Consideration for restarting one/some of her home antihypertensives, will need to confirm home medications: -amlodipine 5mg bid -clonidine 0.1mg bid -lisinopril 20mg bid -metoprolol tartrate 50mg bid -furosemide 20mg daily, ?recent BID dosing. -Continue metoprolol tartrate, as above in #1 -Nephrology is following, appreciate recommendations for anti-hypertensives. 9. Osteoarthritis, chronic (especially the right hip). present on admission. Presumed stable. -Patient reports acute change in leg/hip pain that resulted in ER visit and hydrocodone script with subsequent nausea/vomiting and dehydration. -Stopped NSAIDs, and recommend that she not continue NSAIDs at time of discharge -Continue acetaminophen prn 10. History of asthma/COPD, chronic. present on admission. Presumed stable. -There is some mention in previous notes of home Spiriva, but this medication is not present on patient's medication reconciliation. -Duonebs q4h prn. 11. Hypothyroidism, chronic. present on admission. Presumed stable. -Continue home levothyroxine 75mcg daily 12. Third-degree heart block s/p dual chamber pacemaker, 2005. Presumed stable. [facility] pacemaker stable, followup in 3months. 13. History of obstructive sleep apnea, chronic. present on admission. Active. -Reportedly non-compliant with CPAP -Supplemental oxygen as needed 14. History of pre-diabetes, present on admission. Presumed stable. -NextGen last A1c on 12/21/15 6.0 -Glucose 188 -HbA1c 5.9 -Low dose correctional insulin lispro 15. History of GERD, chronic. present on admission. Presumed stable. -Continued home omeprazole 20 mg twice a day (this was converted to Protonix) -Consideration for reducing to a daily dose she has been on this for some time, and it puts her at higher risk of cardiac, stroke, C. difficile complications. 16. Morbid obesity -Recommend weight loss through mostly dietary changes as exercise will be limited by her chronic arthritis Acetaminophen-fever/headache/mild/moderate pain Antiemetics, as needed Bowel regimen, as needed. Disposition: Patient likely still 1-2 days away from discharge given her continued shortness of breath and tachycardia. Pain Evaluation: Adequate Pain Control VTE Prophylaxis: Sub-Q Heparin (Unfractionated) VTE Mechanical Devices: Intermittant Pneumatic CD Resuscitation Status: CPR: Attempt Resuscitation Attending Statement The patient was seen and examined together with Resident/House-staff on 12/02/16 and I agree with the history, exam and plan as outlined in the note above. Lily Schaffer DO December 02, 2016 07:56 Nahun Jo December 05, 2016 16:48
--- NOTE | 2016-12-02 12:42 | DRSVH ---
PROCEDURE: CT ANGIO CHEST PULMONARY EMBOLISM ([id number]) INDICATIONS: SOB, hypoxia, tachycardia, new afib TECHNIQUE: After the administration of intravenous contrast, 2 mm thick sections acquired from the pulmonary api hayde to the posterior costophrenic angles. 3-dimensional maximum intensity projection (MIP) coronal a nd sagittal reformats were then acquired through the thorax. For radiation dose reduction, the follo wing was used: automated exposure control, adjustment of mA and/or kV according to patient size. COMPARISON: [facility], CT, CT CHEST ABD PELVIS WO CON, 11/29/2016, 10:56. [facility], CT, CHEST/ABD/PELVIS W/CON (PNL), 06/29/2013, 18:35. FINDINGS: Image quality: Diagnostic. Pulmonary arteries: Pulmonary arteries are normal in size, and demonstrate no intraluminal filling d efects to suggest central pulmonary embolism. Lungs and pleura: There are [id number] sized bilateral pleural effusions (right greater than l eft). Bibasilar areas of enhancing consolidation are noted (right also greater than left). Areas of scarring within the lung bases may be present versus focal atelectasis. No lung masses evident. No definite pulmonary nodules are appreciated. Mediastinum: Heart size is normal, without pericardial effusion. Prominent mitral valve calcificati ons are evident. Aortic valve calcifications and also be present. There are coronary artery atheros clerotic changes. A left-sided cardiac pacer/defibrillator apparatus is identified with leads overlyi ng the right atrium and right ventricle. No mediastinal or hilar adenopathy. Thoracic aorta is norm al in caliber and enhancement. Prominent thoracic aorta atherosclerotic changes are present without evidence of aneurysm or dissection. No occlusions are evident involving arch vessels. Esophagus is n ormal in caliber. However, there is a small hiatal hernia. Bones and chest wall: No suspicious bony lesions. Ribs and thoracic spine appear intact throughout. The bone mineralization is diffusely decreased. Thyroid gland is not enlarged. No axillary or supr aclavicular adenopathy. Abdomen: Visualized upper abdominal solid organs appear normal in the early arterial phase of enhanc ement. IMPRESSION: 1. No pulmonary emboli. 2. Small to moderate-sized bilateral effusions with associated atelectasis (right greater than left) . Superimposed pneumonia cannot be entirely excluded, but is felt to be less likely. 3. Coronary and aortic atherosclerosis. Mitral valve calcifications. 4. Small hiatal hernia. Dictated by: Atilio Flores M.D. on 12/02/2016 at 11:33 Approved by: Atilio Flores M.D. on 12/02/2016 at 11:40
--- NOTE | 2016-12-02 13:26 | PCM.PNNEPH ---
Subjective Date of Service December 02, 2016 Subjective The patient's renal function is back to baseline and she is still having considerable difficulties with blood pressure control and breathing issues. I have discussed this with the floor service and I agreed that a CT angiogram of her lungs are appropriate to rule out any potential pulmonary embolus. In light of this I will make recommendations for IV fluid bolus. Post dialysis. Exam Vital Signs Vital Sign - Last Date Time Temp Pulse Resp B/P Pulse Ox O2 Delivery O2 Flow Rate FiO2 12/02/16 13:15 37.3 92 20 138/70 99 Nasal Cannula 2.00 Intake and Output 12/01/16 12/01/16 12/02/16 Cumulative From/Thru 15:00 23:00 07:00 11/29/16 08:37 - 12/02/16 06:17 Intake Total 1213 ml 200 ml 4988 ml Output Total 540 ml Balance 1213 ml 200 ml 4448 ml Intake Oral 200 ml 200 ml 1020 ml IV Total 1013 ml 3968 ml Output Urine Total 540 ml # Voids 3 2 10 # Bowel Movements 1 2 Exam Lungs are clear to auscultation. Heart is regular with a soft systolic murmur. Abdomen is soft without any tenderness or rebound guarding masses or hepatosplenomegaly. Extremities show any evidence of any clubbing cyanosis or edema. Lab and Diagnostics Result Diagram: 12/02/16 0305 12/02/16 0305 Microbiology 11/29/16 Blood Culture - NO GROWTH AFTER 24 HOURS 11/30/16 Resp viral panel- pending 11/29/16 Urine Culture - Mixed Urogenital Kindra X-Rays, CTs and MRIs X-RAY CHEST ONE VIEW, PORTABLE IMPRESSION: No acute cardiopulmonary findings. Stable cardiomegaly. Dictated and approved by: Melody Sifuentes M.D. on 11/29/2016 at 9:05 US VEINOUS LEG DUPLEX UNILATERAL, RIGHT IMPRESSION: No deep vein thrombosis of the right lower extremity. Dictated and approved by: Melody Sifuentes M.D. on 11/29/2016 at 10:58 CT CHEST, ABDOMEN AND PELVIS WITHOUT CONTRAST IMPRESSION: 1. No acute intra-abdominal findings. Specifically, no findings to suggest retroperitoneal bleed. 2. Multiple large gallstones within the gallbladder fundus and probable gallstone within the cystic duct. There is probable dense sludge throughout the gallbladder as described above. The gallbladder wall is not well characterized; however there is no pericholecystic fluid or fat stranding to suggest acute cholecystitis. If further characterization is warranted, right upper quadrant ultrasound may be helpful. 3. 2.5 cm in diameter left ovarian cyst which is abnormal in an 86-year-old patient. Nonemergent pelvic ultrasound could be helpful to further characterize this finding. Additionally, annual sonographic surveillance recommended. Dictated and approved by: Melody Sifuentes M.D. on 11/29/2016 at 11:09 . Plan Impression Impression #1 acute kidney injury which has resolved #2 hypertension with hypertensive heart disease and hypertensive nephrosclerosis Recommendations #1 I would recommend starting her on SALINE 60 mL smaller now and hopefully give her at least 4-6 hours for hydration prior to his CT. I will also to continue this for 8 hours afterwards. As far as her blood pressure goes once renal function stabilizes following the angiogram I would like to start her on either an TONI inhibitor or an angiotensin receptor shara. Laith Patel DO December 02, 2016 13:26
[2016-12-02] MEDS: Artificial Tears 15 mL Ophthalmic Solution BOTH_EYES PRN (23:55)
[2016-12-03] VITALS (10 sets, daily range): BP systolic 138–158; BP diastolic 77–87; PULSE 95–127; RESP 18–22; O2SAT 97–99
[2016-12-03 02:56] LABS: BASOPHILS % (AUTO) 0.2 % (0-3); EOSINOPHILS % (AUTO) 6.7 % (0-5); MONOCYTES % (AUTO) 11.2 % (4-12); Mean Corpuscular Hemoglobin 31.7 pg (27.0-35.0); Mean Corpuscular Volume 103.7 fL (81-100); NEUTROPHILS % (AUTO) 69.9 % (40-74); Platelet Count 244 bil/L (150-400)
[2016-12-03] MEDS: Heparin 5,000 Unit/mL Inj SUBQ SCH ×2 (08:30→16:30)
[2016-12-03] MEDS: Polyethylene Glycol (PEG) 17 Gm Powder PO SCH (09:35)
[2016-12-03] MEDS: Pantoprazole 40 mg ER24 Tablet PO SCH ×2 (09:35→21:10)
[2016-12-03] MEDS: guaiFENesin 600 mg ER12 Tablet PO SCH ×2 (09:36→21:10)
--- NOTE | 2016-12-03 13:22 | PCM.PNMED ---
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 Admitted for acute kidney injury, dyspnea and hyponatremia. No acute events overnight. Per nursing, patient continues to report increased shortness of breath at night and is still requiring 2L supplemental oxygen during the day as well with SpO2 in high 90s. Patient has history of sleep apnea and is noncompliant with home CPAP. Exam Vital Signs Vital Sign - Last Date Time Temp Pulse Resp B/P Pulse Ox O2 Delivery O2 Flow Rate FiO2 12/03/16 08:09 37.1 127 18 139/80 98 Nasal Cannula 2.00 Intake and Output 12/02/16 12/02/16 12/03/16 Cumulative From/Thru 15:00 23:00 07:00 11/29/16 08:37 - 12/03/16 06:31 Intake Total 480 ml 300 ml 5768 ml Output Total 120 ml 660 ml Balance 480 ml 180 ml 5108 ml Intake Oral 480 ml 300 ml 1800 ml IV Total 3968 ml Output Urine Total 120 ml 660 ml # Voids 2 1 13 # Bowel Movements 2 Exam General: Obese, , elderly female, in no acute distress, appropriately interactive HEENT: Normocephalic, atraumatic, conjunctiva normal, mucous membranes moist and pink. Neck: Supple, nontender, no JVD appreciated Cardiovascular: Regular rate, rhythm with no murmurs, rubs, or gallops appreciated Pulmonary: Decreased breath sounds bilaterally, no wheezing, crackles or rhonchi. No use of accessory muscles. Abdomen: Soft, obese, nondistended, non-tender to palpation, no masses. Bowel tones present. Extremities: mild pitting edema in the bilateral lower extremities below the knee. No cyanosis or clubbing Skin: Normal temperature/turgor, no rash or ulcerations. Neurological: Cranial nerves grossly intact. No focal deficit. IVs and Medications Medications Reviewed: Medications were reviewed in detail Lab and Diagnostics Laboratory Tests Test 12/03/16 02:40 White Blood Count 6.3th/mm3 (3.8-10.1) Red Blood Count 2.68mil/mm3 (3.90-5.20) Hemoglobin 8.5g/dL (12.0-15.6) Hematocrit 27.8% (35.0-46.0) Mean Corpuscular Volume 103.7fL (81-100) Mean Corpuscular Hemoglobin 31.7pg (27.0-35.0) Mean Corpuscular Hemoglobin Concent 30.6% (32.0-37.0) Red Cell Distribution Width 13.0% (12.3-15.4) Platelet Count 244bil/L (150-400) Neutrophils (%) (Auto) 69.9% (40-74) Lymphocytes (%) (Auto) 11.8% (14-46) Monocytes (%) (Auto) 11.2% (4-12) Eosinophils (%) (Auto) 6.7% (0-5) Basophils (%) (Auto) 0.2% (0-3) Sodium Level 137mEq/L (134-144) Potassium Level 5.1mEq/L (3.5-5.2) Chloride Level 102mEq/L (97-108) Carbon Dioxide Level 23mmol/L (18-29) Blood Urea Nitrogen 15mg/dL (8-27) Creatinine 0.94mg/dL (0.57-1.00) Estimat Glomerular Filtration Rate 81mL/min (>59) Glucose Level 109mg/dL (60-99) Calcium Level 8.2mg/dL (8.5-10.1) Total Bilirubin 0.3mg/dL (0.0-1.2) Aspartate Amino Transf (AST/SGOT) 25U/L (0-50) Alanine Aminotransferase (ALT/SGPT) 27U/L (0-32) Alkaline Phosphatase 88U/L (25-165) Total Protein 5.9g/dL (6.4-8.4) Albumin 3.1g/dL (3.4-5.0) Result Diagram: 12/03/16 0240 12/03/16 0240 Microbiology 11/29/16 Blood Culture - NO GROWTH AFTER 24 HOURS 11/30/16 Resp viral panel- pending 11/29/16 Urine Culture - Mixed Urogenital Kindra X-Rays, CTs and MRIs X-RAY CHEST ONE VIEW, PORTABLE IMPRESSION: No acute cardiopulmonary findings. Stable cardiomegaly. Dictated and approved by: Melody Sifuentes M.D. on 11/29/2016 at 9:05 US VEINOUS LEG DUPLEX UNILATERAL, RIGHT IMPRESSION: No deep vein thrombosis of the right lower extremity. Dictated and approved by: Melody Sifuentes M.D. on 11/29/2016 at 10:58 CT CHEST, ABDOMEN AND PELVIS WITHOUT CONTRAST IMPRESSION: 1. No acute intra-abdominal findings. Specifically, no findings to suggest retroperitoneal bleed. 2. Multiple large gallstones within the gallbladder fundus and probable gallstone within the cystic duct. There is probable dense sludge throughout the gallbladder as described above. The gallbladder wall is not well characterized; however there is no pericholecystic fluid or fat stranding to suggest acute cholecystitis. If further characterization is warranted, right upper quadrant ultrasound may be helpful. 3. 2.5 cm in diameter left ovarian cyst which is abnormal in an 86-year-old patient. Nonemergent pelvic ultrasound could be helpful to further characterize this finding. Additionally, annual sonographic surveillance recommended. Dictated and approved by: Melody Sifuentes M.D. on 11/29/2016 at 11:09 . 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 Admitted for acute kidney injury, dyspnea and hyponatremia. 1. Paroxysmal atrial fibrillation. not present on admission. Active -Likely new onset, unknown if prior diagnosis and has been in sinus rhythm. -HR 90s to low 100s with metoprolol. Patient asymptomatic. -Continue home metoprolol tartrate at 50mg BID -[id number] score 4 -Echocardiogram, normal left ventricular size, normal wall thickness and hyperdynamic systolic function. -Continue aspirin for anticoagulation, outpatient followup for consideration of warfarin. 2. Acute kidney injury, present on admission. Resolving -Likely prerenal azotemia secondary to NSAIDs and lisinopril combined with hypovolemia/dehydration due to vomiting. -Pt also reported recent outpatient kidney infection, not treated with antibiotics. Urine w/no signs of infection. -Per chart review, creatinine 0.95 in November 2015. -Creatinine 1.54 on admission. See labs above -Nephrology consulted and we appreciate their expertise. -Stop IV fluids -Lisinopril held on admission. -Plan to resume lisinopril prior to discharge if renal function remains stable. Creatinine today 0.94. 3. Hyperkalemia, acute. present on admission. Improved -Hyperkalemia likely secondary to renal insufficiency in the setting of lisinopril and NSAIDs -On admission potassium 6.2 w/o EKG changes -IV fluids stopped. -Following potassium closely -Nephrology as noted 4. Hypovolemic hyponatremia, acute. Present on admission. Resolved -Likely hypovolemia secondary to vomiting 5. Dyspnea, acute. present on admission. Active -Uncertain etiology possibly asthma exacerbation, sleep apnea, CHF or potential contribution from GALO. -d-Dimer in the ER, elevated 1.63. Right lower ext Doppler negative for DVT. CT angio negative for PE. -Resp viral PCR- negative. -Echocardiogram, as above. -Duonebs prn -Start CPAP tonight (patient with hx of sleep apnea, non-compliant with CPAP. Symptoms mainly at night.) 6. Nausea and vomiting, acute. present on admission. Resolved. -Secondary to narcotic administration. -Avoid narcotics -Anti-emetics as needed -IV fluids stopped, as above -Slowly advanced diet as tolerated. 7. Anemia,unknown chronicity. present on admission. Stable -Hb 9.5 on admission. -Monitor H/H 8. Hypertension, chronic. present on admission. Presumed stable. -Currently normal to hypertensive. -Consideration for restarting one/some of her home antihypertensives: -amlodipine 5mg bid -clonidine 0.1mg bid -lisinopril 20mg bid -metoprolol tartrate 50mg bid -furosemide 20mg daily, ?recent BID dosing. -Continue metoprolol tartrate, as above in #1 -Will plan to start Lisinopril, as long as renal function remains stable. 9. Osteoarthritis, chronic (especially the right hip). present on admission. Presumed stable. -Patient reports acute change in leg/hip pain that resulted in ER visit and hydrocodone script with subsequent nausea/vomiting and dehydration. -Stopped NSAIDs, and recommend that she not continue NSAIDs at time of discharge -Continue acetaminophen prn 10. History of asthma/COPD, chronic. present on admission. Presumed stable. -There is some mention in previous notes of home Spiriva, but this medication is not present on patient's medication reconciliation. -Duonebs q4h prn. 11. Hypothyroidism, chronic. present on admission. Presumed stable. -Continue home levothyroxine 75mcg daily 12. Third-degree heart block s/p dual chamber pacemaker, 2005. Presumed stable. [facility] pacemaker stable, followup in 3months. 13. History of obstructive sleep apnea, chronic. present on admission. Active. -Reportedly non-compliant with CPAP -Supplemental oxygen as needed, start CPAP tonight. -Recommend close outpatient followup for sleep study. 14. History of pre-diabetes, present on admission. Presumed stable. -NextGen last A1c on 12/21/15 6.0 -Glucose 188 -HbA1c 5.9 -Low dose correctional insulin lispro 15. History of GERD, chronic. present on admission. Presumed stable. -Continued home omeprazole 20 mg twice a day (this was converted to Protonix) -Consideration for reducing to a daily dose she has been on this for some time, and it puts her at higher risk of cardiac, stroke, C. difficile complications. 16. Morbid obesity -Recommend weight loss through mostly dietary changes as exercise will be limited by her chronic arthritis Acetaminophen-fever/headache/mild/moderate pain Antiemetics, as needed Bowel regimen, as needed. Disposition: Patient likely still 1-2 days away from discharge given her continued shortness of breath and tachycardia. Physical therapy recommending SNF , family is still deciding. Pain Evaluation: Adequate Pain Control VTE Prophylaxis: Sub-Q Heparin (Unfractionated) VTE Mechanical Devices: Intermittant Pneumatic CD Resuscitation Status: CPR: Attempt Resuscitation Attending Statement The patient was seen and examined together with Resident/House-staff on 12/03/16 and I agree with the history, exam and plan as outlined in the note above. Lily Schaffer DO December 03, 2016 08:10 Nahun Jo December 05, 2016 17:00
[2016-12-03] MEDS: Levalbuterol 1.25 mg/0.5mL Inhalation Solution NEB PRN ×2 (14:32→21:37)
--- NOTE | 2016-12-03 18:26 | PCM.PNNEPH ---
Subjective Date of Service December 03, 2016 Subjective Patient tolerated the CT angiogram without any significant issues. Her creatinine today is 0.94. Her main complaint is some increasing shortness of breath and progressive lower extremity edema. Exam Vital Signs Vital Sign - Last Date Time Temp Pulse Resp B/P Pulse Ox O2 Delivery O2 Flow Rate FiO2 12/03/16 15:40 36.7 98 18 144/82 98 Nasal Cannula 2.00 Intake and Output 12/02/16 12/02/16 12/03/16 Cumulative From/Thru 15:00 23:00 07:00 11/29/16 08:37 - 12/03/16 06:31 Intake Total 480 ml 300 ml 5768 ml Output Total 120 ml 660 ml Balance 480 ml 180 ml 5108 ml Intake Oral 480 ml 300 ml 1800 ml IV Total 3968 ml Output Urine Total 120 ml 660 ml # Voids 2 1 13 # Bowel Movements 2 Exam Neck is supple without adenopathy however she does have some mild jugular venous distention 90. Lungs showed a few bibasilar rales. Heart is regular with mechanical soft systolic murmur. Abdomen is soft without any tenderness rebound guarding masses or hepatosplenomegaly. Extremities not show any evidence of any clubbing cyanosis however she does have some mild to moderate pitting edema in both distal lower extremities. Lab and Diagnostics Result Diagram: 12/03/16 0240 12/03/16 0240 Microbiology 11/29/16 Blood Culture - NO GROWTH AFTER 24 HOURS 11/30/16 Resp viral panel- pending 11/29/16 Urine Culture - Mixed Urogenital Kindra X-Rays, CTs and MRIs X-RAY CHEST ONE VIEW, PORTABLE IMPRESSION: No acute cardiopulmonary findings. Stable cardiomegaly. Dictated and approved by: Melody Sifuentes M.D. on 11/29/2016 at 9:05 US VEINOUS LEG DUPLEX UNILATERAL, RIGHT IMPRESSION: No deep vein thrombosis of the right lower extremity. Dictated and approved by: Melody Sifuentes M.D. on 11/29/2016 at 10:58 CT CHEST, ABDOMEN AND PELVIS WITHOUT CONTRAST IMPRESSION: 1. No acute intra-abdominal findings. Specifically, no findings to suggest retroperitoneal bleed. 2. Multiple large gallstones within the gallbladder fundus and probable gallstone within the cystic duct. There is probable dense sludge throughout the gallbladder as described above. The gallbladder wall is not well characterized; however there is no pericholecystic fluid or fat stranding to suggest acute cholecystitis. If further characterization is warranted, right upper quadrant ultrasound may be helpful. 3. 2.5 cm in diameter left ovarian cyst which is abnormal in an 86-year-old patient. Nonemergent pelvic ultrasound could be helpful to further characterize this finding. Additionally, annual sonographic surveillance recommended. Dictated and approved by: Melody Sifuentes M.D. on 11/29/2016 at 11:09 . Plan Impression Impression #1 acute kidney injury which is resolved #2 hypertension with hypertensive heart disease Recommendations #1 I will go ahead and stop her IV fluids and I would recommend at least a 1 dose of diuretic. As her renal function has improved I will sign off at this point. Please do not hesitate to contact us should you have any questions or any change in the patient's condition. Thank you Laith Patel DO December 03, 2016 18:26
[2016-12-04] VITALS (8 sets, daily range): BP systolic 128–143; BP diastolic 68–84; PULSE 79–110; RESP 18–22; O2SAT 94–99
[2016-12-04] MEDS: Heparin 5,000 Unit/mL Inj SUBQ SCH ×2 (00:30→08:30)
[2016-12-04 03:26] LABS: BASOPHILS % (AUTO) 0.2 % (0-3); EOSINOPHILS % (AUTO) 10.3 % (0-5); MONOCYTES % (AUTO) 9.9 % (4-12); Mean Corpuscular Hemoglobin 32.1 pg (27.0-35.0); Mean Corpuscular Volume 102.3 fL (81-100); NEUTROPHILS % (AUTO) 63.4 % (40-74); Platelet Count 247 bil/L (150-400)
[2016-12-04 08:10] LABS: Vitamin B12 1114 pg/mL (211-946)
[2016-12-04] MEDS: guaiFENesin 600 mg ER12 Tablet PO SCH (08:59)
[2016-12-04] MEDS: Pantoprazole 40 mg ER24 Tablet PO SCH (08:59)
[2016-12-04] MEDS: Polyethylene Glycol (PEG) 17 Gm Powder PO SCH (08:59)
[2016-12-04] MEDS ORDERED: Aspirin-Expunged Drug, Do Not Renew! PO (13:08)
[2016-12-04] MEDS ORDERED: HYDR25TA4 PO (13:08)
--- NOTE | 2016-12-04 13:19 | PCM.DIMED ---
Discharge Instructions Date of Service December 04, 2016 Dates of Hospitalization November 29, 2016 at 12:25 Discharge Diagnosis Discharge Diagnosis -Kidney injury -Hypertension -Sleep apnea -Arthritis -Hypothyroidism -Pre-diabetes -Acid reflux Medication Instructions Some changes were made to your medications during this hospital stay and are listed below. Please review these changes with your primary care provider at your scheduled visit on December 11. STOP taking the following medications: -Amlodipine -Furosemide -Clonidine -Lisinopril -Ibuprofen or other non-steroidal anti-inflammatory medications for example: Advil, aleve, naproxen etc. (If you are not sure, contact your primary care provider) START taking the following medications: -Hydrochlorothiazide 25mg. Take one tablet by mouth once daily. -Aspirin 325mg. Take one tablet by mouth once daily. (Aspirin increased to 325mg from 81mg). CONTINUE taking the following medications: -Levothyroxine 75mcg. Take one tablet by mouth once daily. -Metoprolol Tartrate 50mg. Take one tablet by mouth two times a day with meals. -Omeprazole 20mg. Take one tablet by mouth two times a day with meals. -Ondansentron 8mg. Dissolve one tablet under the tongue every 4 hours as needed for nausea. -Acetaminophen (Tyelenol extra strength) 500mg. Take one tablet by mouth every 6hours as needed for pain. Diet Heart Healthy Activity Limited until seen by PCP Call your provider Other (If you develop new or concerning symptoms contact your primary care physician. ) Patient Instructions Followup with your primary care provider Bora Williamson on December 11 as planned to review this hospital stay, need for sleep study, medication changes and kidney function. Do not take ibuprofen or similar medications until you see your followup appointment on December 11. If you are unsure which medications to avoid please call your primary care provider. . Follow-up Provider: Zulema Ibarra PA-C Follow-up with PCP in: 1 week (Patient reports scheduled appointment on December 11. ) Lily Schaffer DO December 04, 2016 12:52
[2016-12-04] MEDS ORDERED: LEVA1.2515 INHALATION (14:35)
--- NOTE | 2016-12-06 16:42 | PCM.DC.MED ---
Discharge Summary Date of Service December 04, 2016 Dates of Hospitalization Date of Hospital Admission November 29, 2016 at 12:25 Date of Discharge: December 04, 2016 Providers: Admitting Physician: Nahun Jo Primary Care Physician: Jeanette Key MD Attending Physician: Nahun Jo Diagnosis at Time of Discharge Diagnosis at Time of Discharge -Paroxysmal atrial fibrillation. not present on admission. Active -Acute kidney injury, present on admission. Resolving -Hyperkalemia, acute. present on admission. Treated/resolved -Hypovolemic hyponatremia, acute. Present on admission. Treated/resolved -Anemia,unknown chronicity. present on admission. Stable -Hypertension, chronic. present on admission. Presumed stable. -Osteoarthritis, chronic. present on admission. Presumed stable. -History of asthma/COPD, chronic. present on admission. Presumed stable. -Hypothyroidism, chronic. present on admission. Presumed stable. 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 Presumed stable. -Obstructive sleep apnea, chronic. present on admission. Active. -History of pre-diabetes, present on admission. Presumed stable. -GERD, chronic.Presumed stable. -Morbid obesity,, chronic. Present on admission. Presumed stable. Consultations NEPHROLOGY Procedures XRay, CTs & MRIs X-RAY CHEST ONE VIEW, PORTABLE IMPRESSION: No acute cardiopulmonary findings. Stable cardiomegaly. Dictated and approved by: Melody Sifuentes M.D. on 11/29/2016 at 9:05 US VEINOUS LEG DUPLEX UNILATERAL, RIGHT IMPRESSION: No deep vein thrombosis of the right lower extremity. Dictated and approved by: Melody Sifuentes M.D. on 11/29/2016 at 10:58 CT CHEST, ABDOMEN AND PELVIS WITHOUT CONTRAST IMPRESSION: 1. No acute intra-abdominal findings. Specifically, no findings to suggest retroperitoneal bleed. 2. Multiple large gallstones within the gallbladder fundus and probable gallstone within the cystic duct. There is probable dense sludge throughout the gallbladder as described above. The gallbladder wall is not well characterized; however there is no pericholecystic fluid or fat stranding to suggest acute cholecystitis. If further characterization is warranted, right upper quadrant ultrasound may be helpful. 3. 2.5 cm in diameter left ovarian cyst which is abnormal in an 86-year-old patient. Nonemergent pelvic ultrasound could be helpful to further characterize this finding. Additionally, annual sonographic surveillance recommended. Dictated and approved by: Melody Sifuentes M.D. on 11/29/2016 at 11:09 (12/02/16) CT ANGIO CHEST PULMONARY EMBOLISM IMPRESSION: 1. No pulmonary emboli. 2. Small to moderate-sized bilateral effusions with associated atelectasis ( right greater than left). Superimposed pneumonia cannot be entirely excluded, but is felt to be less likely. 3. Coronary and aortic atherosclerosis. Mitral valve calcifications. 4. Small hiatal hernia. Dictated and approved by: Atilio Flores M.D. on 12/02/2016 at 11:33 . Cardiac Echo Impression (12/01/16) ECHOCARDIOGRAM Interpretation Summary 1. Normal left ventricular size with normal wall thickness and hyperdynamicsystolic function. 2. Grossly normal right ventricular size with normal systolic function. The estimated RVSP is 38 mm Hg with an estimated low right atrial pressure. 3. No evidence for significant valvular pathology Compared to the previous study (images and report reviewed), the rhythm has changed; tricuspid regurgitation is now noted. Brief History Per admission history and physical on 12/01/16. Dez Jordan DO Ms Castillo is an 86-year-old Lao-speaking lady with a history of asthma, third degree AV block s/p pacemaker placement in 2004, hypertension, obstructive sleep apnea, anemia and hypothyroidism who presented to the emergency department with shortness of breath associated with nausea and vomiting since yesterday. Information obtained via chart review and video land examiner. Patient and family state that she has a history of severe arthritis for which she gets knee injections every six months. However, yesterday they note a significant increase in her leg, buttock and low back pain for which she presented to the emergency department. She states that she was discharged from the ED with a script for hydrocodone but never had this filled because the hydrocodone that she received in the ED prior to discharge made her sick. She reports intense nausea and vomiting intermittently throughout the night, which she attributes to the hydrocodone. She also states that the shortness of breath began after the vomiting started and denies experiencing this kind of shortness of breath before. She does note a similar reaction to hydrocodone in the past. Of note, she states that she was seen by her PCP a few weeks ago and found to have kidney infection. However, she states that she was not started on antibiotics but rather was told to come back in a couple of weeks to have repeat lab work done. She reports fatigue, dysuria, leg pain, dyspnea on exertion and constipation. Denies fever, chills, chest pain, rash, itching, headache, abdominal pain or diarrhea. In the ED, vitals 37.0, BP 135/52, pulse 91, SpO2 94% on room air. Labs: wbc 8.5 , Hb 9.5, Hct 28.9, plts 269, sodium 131, potassium 4.7, chloride 92, bicarb 18 , BUN 49, creatinine 1.67, glucose 188, lactic acid 2.2, proBNP 3878. Stool guaiac was negative. ECG- normal sinus rhythm, rate 92. Chest xray negative for acute process. Venous doppler right lower extremity negative for DVT. CT chest, abdomen and pelvis negative for acute intra-abdominal findings. Nephrology consulted from the ER with plan of hydration and reevaluation. Hospital Course Ms. Castillo is an 86-year-old Lao-speaking lady with a history of asthma, third degree AV block status post pacemaker placement in 2004, hypertension, obstructive sleep apnea, anemia and hypothyroidism who presented to the emergency department with shortness of breath associated with nausea and vomiting. Admitted for acute kidney injury, dyspnea and hyponatremia. 1. Paroxysmal atrial fibrillation. not present on admission. Active -Likely new onset, unknown if prior diagnosis and has remained asymptomatic and in sinus rhythm. -Patient's heart rate in the 90s to low 100s with metoprolol. She was continued on home dosing of metoprolol tartrate at 50mg BID -Calculated [id number] score of 4 and anticoagulation recommended. However, patient is a high fall risk and needing significant assistance with ambulation. Thus, patient was anticoagulated with 325mg aspirin daily and instructed to followup with her primary care physician regarding long-term anticoagulation. -An Echocardiogram was done on 12/01/16 which showed hyperdynamic systolic function and a normal left ventricular size and wall thickness. No thrombus. 2. Acute kidney injury, present on admission. Resolving -Likely prerenal azotemia secondary to NSAIDs and lisinopril combined with hypovolemia/dehydration due to vomiting. -Patient reported a recent kidney infection but stated she was not treated with antibiotics and urine was without evidence of infection. -Per chart review, the patient's creatinine was 0.95 in November 2015 and was 1.54 on admission. -Nephrology was consulted and recommended resuming lisinopril, which was held on admission, prior to discharge. -Patient received IV fluids per nephrology and a complete metabolic panel monitored daily. -Recommend outpatient followup with patient's primary care physician within the next few days for BMP and medication review. -Patient was advised to stop taking all NSAIDs. 3. Hyperkalemia, acute. present on admission. Improved -Hyperkalemia likely secondary to renal insufficiency in the setting of lisinopril and NSAIDs -On admission potassium 6.2 w/o EKG changes -Patient received 30gm of Kayexalate at presentation and IV fluids per were managed by nephrology. -Monitored metabolic panel daily. 4. Hypovolemic hyponatremia, acute. Present on admission. Resolved -Likely hypovolemia secondary to vomiting 5. Dyspnea, acute on chronic. present on admission. Stable. -Likely secondary to sleep apnea, chronic gastroesophageal reflux or possibly asthma exacerbation or potential contribution from GALO. -A d-Dimer in the ER was elevated at 1.63 and a right lower extremity Doppler negative for DVT. CT angio negative for PE. -Respiratory viral PCR- negative. -Echocardiogram, as above. -Patient received Duonebs every four hours as needed and titrated off supplemental oxygen. -Respiratory therapy evaluated patient and set her up with CPAP due to her history of sleep apnea and patient refused. -Patient has a history of sleep apnea and is reportedly non-compliant with her CPAP at home. -Recommend close outpatient followup. Patient was set up for a nocturnal oximetry evaluation in her home at discharge. -Advised patient to discuss need for sleep study with her primary care physician. 6. Nausea and vomiting, acute. present on admission. Resolved. -Secondary to narcotic administration. -Patient received anti-emetics as needed and her diet was advanced as tolerated. 7. Anemia,unknown chronicity. present on admission. Stable -Hb 9.5 on admission, likely secondary to chronic disease. -Monitored CBC daily. 8. Hypertension, chronic. present on admission. Presumed stable. -Patient was initially hypotensive to normotensive and home medications were resumed when appropriate. -She was continued on amlodipine 5mg twice daily and metoprolol tartrate 50mg twice daily. -At discharge patient was advised to followup with her primary care provider regarding medication changes and to review hospital stay. 9. Osteoarthritis, chronic (especially the right hip). present on admission. Presumed stable. -Patient reported an acute change in leg/hip pain that resulted in Emergency Room visit, one day prior to admission. She was discharged from the ER with a hydrocodone script and developed nausea/vomiting after only one tablet. -All NSAIDS were held and patient advised to discontinue using NSAIDs at discharge. -Patient received acetaminophen as needed for pain. 10. History of asthma/COPD, chronic. present on admission. Presumed stable. -There was mention in previous notes of home Spiriva, but this medication was not present on patient's medication reconciliation. -Patient received Duonebs every four hours as needed. 11. Hypothyroidism, chronic. present on admission. Presumed stable. -Patient was continued on home levothyroxine 75mcg daily 12. 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 Presumed stable. -NextGen visit for device check on 11/19/16- pacemaker stable, followup in 3months. 13. History of obstructive sleep apnea, chronic. present on admission. Active. -Reportedly non-compliant with CPAP -Patient received supplemental oxygen as needed, and declined CPAP. -Recommend close outpatient followup for sleep study. 14. History of pre-diabetes, present on admission. Presumed stable. -NextGen last A1c on 12/21/15 6.0 -Glucose 188 -HbA1c 5.9 -Patient received Low dose correctional insulin lispro as needed. 15. History of GERD, chronic. present on admission. Presumed stable. -Patient's home omeprazole was converted to pantoprazole. -Consideration for reducing to a daily dose she has been on this for some time, and it puts her at higher risk of cardiac, stroke, C. difficile complications. 16. Morbid obesity -Recommended weight loss through mostly dietary changes as exercise will be limited by her chronic arthritis Exam Vital Signs (Last) Date Time Temp Pulse Resp B/P Pulse Ox O2 Delivery O2 Flow Rate FiO2 12/04/16 10:30 95 20 98 Room Air 12/04/16 08:57 36.8 142/68 1.50 Exam General: Obese, , elderly female, in no acute distress, appropriately interactive HEENT: Normocephalic, atraumatic, conjunctiva normal, mucous membranes moist and pink. Neck: Supple, nontender, no JVD appreciated Cardiovascular: Regular rate, rhythm with no murmurs, rubs, or gallops appreciated Pulmonary: Decreased breath sounds bilaterally, no wheezing, crackles or rhonchi. No use of accessory muscles. Abdomen: Soft, obese, nondistended, non-tender to palpation, no masses. Bowel tones present. Extremities: mild pitting edema in the bilateral lower extremities below the knee. No cyanosis or clubbing Skin: Normal temperature/turgor, no rash or ulcerations. Neurological: Cranial nerves grossly intact. No focal deficit. Psychiatric: Normal mood and affect. Alert and oriented to person, place and time. . Test 11/29/16 08:38 11/29/16 19:45 11/29/16 22:50 11/30/16 04:04 D-Dimer 1.65mg/L FEU (<0.50) Hemoglobin A1c 5.9% (4.8-5.6) Troponin T 0.010ug/L (0.0-0.011) Pro-B-Type Natriuretic Peptide 3878pg/mL (0-738) Thyroid Stimulating Hormone (TSH) 1.840uIU/mL (0.450-4.500) Free Thyroxine 1.44ng/dL (0.82-1.77) Urine Color Yellow (YELLOW) Urine Appearance Clear (CLEAR,HAZY) Urine pH 5.5 (5.0-8.0) Urine Specific [place] 1.015 (1.003-1.035) Urine Protein Negativemg/dL (NEG,TRACE) Urine Glucose (UA) Negativemg/dL (NEGATIVE) Urine Ketones Negativemg/dL (NEGATIVE) Urine Occult Blood Negative (NEGATIVE) Urine Nitrite Negative (NEGATIVE) Urine Bilirubin Negative (NEGATIVE) Urine Urobilinogen Normalmg/dL (NORMAL) Urine Leukocyte Esterase Small (NEGATIVE) Urine RBC 0-2/hpf (0-2) Urine WBC 0-5/hpf (0-5) Urine Epithelial Cells Moderate/hpf (NONE-MOD) Urine Crystals None seen (NONE SEEN) Urine Bacteria Few/hpf (NONE-FEW) Urine Hyaline Casts None/lpf (NONE) Urine Granular Casts None seen (NONE SEEN) Urine Waxy Casts None seen (NONE SEEN) Urine Red Blood Cell Casts None seen (NONE SEEN) Urine White Blood Cell Casts None seen (NONE SEEN) Urine Mucus None seen (None Seen) Urine Trichomonas None seen (NONE SEEN) Urine Yeast None (NONE SEEN) Urinalysis Comment Urine Culture Reflexed Indicated Lactic Acid Level 1.4mmol/L (0.4-2.0) Test 12/01/16 02:40 12/03/16 02:40 12/04/16 03:08 Magnesium Level 2.2mg/dL (1.6-2.6) Procalcitonin 0.11ng/mL (0.00-0.08) Vitamin B12 Level 1114pg/mL (211-946) Folate > 19.9ng/mL (>3.0) White Blood Count 4.9th/mm3 (3.8-10.1) Red Blood Count 2.62mil/mm3 (3.90-5.20) Hemoglobin 8.4g/dL (12.0-15.6) Hematocrit 26.8% (35.0-46.0) Mean Corpuscular Volume 102.3fL (81-100) Mean Corpuscular Hemoglobin 32.1pg (27.0-35.0) Mean Corpuscular Hemoglobin Concent 31.3% (32.0-37.0) Red Cell Distribution Width 12.8% (12.3-15.4) Platelet Count 247bil/L (150-400) Neutrophils (%) (Auto) 63.4% (40-74) Lymphocytes (%) (Auto) 16.0% (14-46) Monocytes (%) (Auto) 9.9% (4-12) Eosinophils (%) (Auto) 10.3% (0-5) Basophils (%) (Auto) 0.2% (0-3) Sodium Level 134mEq/L (134-144) Potassium Level 5.4mEq/L (3.5-5.2) Chloride Level 100mEq/L (97-108) Carbon Dioxide Level 23mmol/L (18-29) Blood Urea Nitrogen 13mg/dL (8-27) Creatinine 1.05mg/dL (0.57-1.00) Estimat Glomerular Filtration Rate 72mL/min (>59) Glucose Level 104mg/dL (60-99) Calcium Level 8.3mg/dL (8.5-10.1) Total Bilirubin 0.3mg/dL (0.0-1.2) Aspartate Amino Transf (AST/SGOT) 20U/L (0-50) Alanine Aminotransferase (ALT/SGPT) 24U/L (0-32) Alkaline Phosphatase 84U/L (25-165) Total Protein 5.9g/dL (6.4-8.4) Albumin 3.0g/dL (3.4-5.0) Microbiology Results 11/29/16 Blood Culture - NO GROWTH AFTER 24 HOURS 11/30/16 Resp viral panel- pending 11/29/16 Urine Culture - Mixed Urogenital Kindra Discharge Medications Discharge Medications ([Q-Pap Extra Strength]) 500 MG ORAL Q6H NEEDED (Reported) ([Aspirin-Expunged Drug, Do Not Renew!]) 325 MG TABLET 325 MG PO DAILY Prescribed by: DEZ JORDAN DO Hydrochlorothiazide (Hydrochlorothiazide) 25 Mg Tablet 25 MG PO DAILY Prescribed by: DEZ JORDAN DO Levothyroxine (Levothyroxine) 75 Mcg Tablet 75 MCG PO DAILY (Reported) Magnesium Hydroxide (Milk of Magnesia) 2,400 Mg/10 Ml Oral.susp 2,400 MG PO DAILY Prescribed by: JASON MORLEY MD Metoprolol Tartrate (Metoprolol Tartrate) 50 Mg Tablet 50 MG PO BIDWM (Reported ) Omeprazole (Omeprazole) 20 Mg Tablet.dr 20 MG PO BID Prescribed by: ANIBAL SALAMANCA MD As needed Acetaminophen (Acetaminophen) 500 Mg Tablet 500 MG PO Q6H PRN PRN NEEDED ( Reported) Hydrocodone-Acetaminophen 5-325 mg (Hydrocodone-Acetaminophen 5-325 mg) 1 Each Tablet 0.5-1 TABLET PO BID PRN PRN For Pain Prescribed by: DESI HURTADO MD Hydrocodone-Acetaminophen 5-325 mg (Hydrocodone-Acetaminophen 5-325 mg) 1 Each Tablet 1 TABLET PO Q4H PRN PRN For Pain Prescribed by: LEOBARDO ROBERTO MD Levalbuterol (Levalbuterol) 1.25 Mg/3 Ml Vial.neb 1.25 MG INHALATION Q6H PRN PRN For Shortness of Breath Prescribed by: DEZ JORDAN DO Ondansetron ODT (Ondansetron ODT) 8 Mg Tab.rapdis 8 MG PO Q4H PRN PRN For Nausea Prescribed by: DESI HURTADO MD Polyethylene Glycol 3350 (Miralax) 17 Gm Powd.pack 17 GM PO DAILY PRN PRN For Constipation Prescribed by: DESI HURTADO MD Additional med instructions Some changes were made to your medications during this hospital stay and are listed below. Please review these changes with your primary care provider at your scheduled visit on December 11. STOP taking the following medications: -Amlodipine -Furosemide -Clonidine -Lisinopril -Ibuprofen or other non-steroidal anti-inflammatory medications for example: Advil, aleve, naproxen etc. (If you are not sure, contact your primary care provider) START taking the following medications: -Hydrochlorothiazide 25mg. Take one tablet by mouth once daily. -Aspirin 325mg. Take one tablet by mouth once daily. (Aspirin increased to 325mg from 81mg). CONTINUE taking the following medications: -Levothyroxine 75mcg. Take one tablet by mouth once daily. -Metoprolol Tartrate 50mg. Take one tablet by mouth two times a day with meals. -Omeprazole 20mg. Take one tablet by mouth two times a day with meals. -Ondansentron 8mg. Dissolve one tablet under the tongue every 4 hours as needed for nausea. -Acetaminophen (Tyelenol extra strength) 500mg. Take one tablet by mouth every 6hours as needed for pain. Followup Plan Discharge Diet: Heart Healthy Discharge Activity: Limited until seen by PCP Patient Instructions Followup with your primary care provider Bora Williamson on December 11 as planned to review this hospital stay, need for sleep study, medication changes and kidney function. Do not take ibuprofen or similar medications until you see your followup appointment on December 11. If you are unsure which medications to avoid please call your primary care provider. . Follow-up Provider: Zulema Ibarra PA-C Follow-up with PCP in: 1 week (Patient reports scheduled appointment on December 11. ) Time spent 35 min Attending Statement The patient was seen and examined together with Resident/House-staff on 12/04/16 and I agree with the history, exam and plan as outlined in the note above. copies to: Zulema Ibarra PA-C, Courtney M DO December 04, 2016 13:19 Nahun Jo December 18, 2016 17:28
== END 2016-12-04 15:50 | disposition home health service (06) | DRG 683 ==
LOC: SED 08:16 → EDBD 08:16 → EDUNIT# 08:16 → PCC 12:25
PROVIDERS: ADMIT Internal Medicine; ATTEND Internal Medicine
DX: N17.9 Acute kidney failure, unspecified (principal); Z68.42 Body mass index [BMI] 45.0-49.9, adult; E87.1 Hypo-osmolality and hyponatremia; E87.5 Hyperkalemia; J45.909 Unspecified asthma, uncomplicated; I10 Essential (primary) hypertension; J44.9 Chronic obstructive pulmonary disease, unspecified; D50.9 Iron deficiency anemia, unspecified; E66.01 Morbid (severe) obesity due to excess calories; E03.9 Hypothyroidism, unspecified; E78.5 Hyperlipidemia, unspecified; G47.33 Obstructive sleep apnea (adult) (pediatric); T39.395A Adverse effect of other nonsteroidal anti-inflammatory drugs [NSAID], initial encounter; M16.11 Unilateral primary osteoarthritis, right hip; E86.0 Dehydration; I48.0 Paroxysmal atrial fibrillation; R11.2 Nausea with vomiting, unspecified; T40.4X5A Adverse effect of other synthetic narcotics, initial encounter; Z95.0 Presence of cardiac pacemaker; Z79.82 Long term (current) use of aspirin; Z91.19 Patient's noncompliance with other medical treatment and regimen; Z87.891 Personal history of nicotine dependence

== ENCOUNTER 2016-12-20 23:11 | Observation (INO) | payer MEDICARE, MEDICAID ==
[~2016-12-20] VITALS: Ht 139.7 cm; Wt 85.9 kg
[~2016-12-20 23:11] MED LIST changes: -ASPI-973 PO; +Aspirin-Expunged Drug, Do Not Renew! PO; -CLON0.1T PO; +HYDR25TA4 PO; +LEVA1.2515 INHALATION; -LISI-567 PO
[2016-12-20 23:19] VITALS: BP 191/82; PULSE 86; RESP 16; O2SAT 97
[2016-12-21] VITALS (13 sets, daily range): BP systolic 126–162; BP diastolic 62–102; PULSE 78–110; RESP 13–24; O2SAT 95–100
--- NOTE | 2016-12-21 00:36 | ED.REPORT ---
HPI-General Illness Date of Service December 21, 2016 ED Provider: Dr. 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 Pt rates the pain at a 7 or 8/10 with radiation to the back. Pt describes her pain as a "burping sensation" discomfort. The pt was at admitted to [facility] about 3 weeks ago for similar sx at which she had a full workup and was diagnosed with paroxysmal a-fib, GALO, hyperkalemia, and hypovolemic hyponatremia. Echocardiogram obtained during that visit was interpreted as below. Interpretation Summary 1. Normal left ventricular size with normal wall thickness and hyperdynamic systolic function. 2. Grossly normal right ventricular size with normal systolic function. The estimated RVSP is 38 mm Hg with an estimated low right atrial pressure. 3. No evidence for significant valvular pathology Cloth Bale Header: Dr. Grijalva Nursing Notes Stated Complaint: HIGH BLOOD PRESSURE Chief Complaint: General Complaint Nursing Notes Reviewed: Yes Allergies: Coded Allergies: nitroglycerin (Verified Adverse Reaction, Intermediate, LOW BP, 09/10/16) Scheduled ([Q-Pap Extra Strength]) 500 MG ORAL Q6H NEEDED ([Aspirin-Expunged Drug, Do Not Renew!]) 325 MG TABLET 325 MG PO DAILY Hydrochlorothiazide (Hydrochlorothiazide) 25 Mg Tablet 25 MG PO DAILY Levothyroxine (Levothyroxine) 75 Mcg Tablet 75 MCG PO DAILY Magnesium Hydroxide (Milk of Magnesia) 2,400 Mg/10 Ml Oral.susp 2,400 MG PO DAILY Metoprolol Tartrate (Metoprolol Tartrate) 50 Mg Tablet 50 MG PO BIDWM Omeprazole (Omeprazole) 20 Mg Tablet.dr 20 MG PO BID Scheduled PRN Acetaminophen (Acetaminophen) 500 Mg Tablet 500 MG PO Q6H PRN PRN NEEDED Hydrocodone-Acetaminophen 5-325 mg (Hydrocodone-Acetaminophen 5-325 mg) 1 Each Tablet 0.5-1 TABLET PO BID PRN PRN For Pain Hydrocodone-Acetaminophen 5-325 mg (Hydrocodone-Acetaminophen 5-325 mg) 1 Each Tablet 1 TABLET PO Q4H PRN PRN For Pain Levalbuterol (Levalbuterol) 1.25 Mg/3 Ml Vial.neb 1.25 MG INHALATION Q6H PRN PRN For Shortness of Breath Ondansetron ODT (Ondansetron ODT) 8 Mg Tab.rapdis 8 MG PO Q4H PRN PRN For Nausea Polyethylene Glycol 3350 (Miralax) 17 Gm Powd.pack 17 GM PO DAILY PRN PRN For Constipation General Time Seen by MD: 00:36 Chief Complaint Other (High blood pressure) Hx Obtained From: Patient, Daughter (Multiple) Arrived By: Walk-in Sudden in Onset?: No Symptom Duration: Since onset Location: : Chest Quality: Painful Radiation: : Back Severity: Current: Pain level 7 out of 10 Severity: Maximum: Pain level 8 out of 10 Recent Healthcare: Recent doctor visit Similar Sx Previous: Yes Past Medical History Past Medical History Notes: PCP Dr. Key Medication list dated 11/21/2016 obtained from [facility]: Omeprazole 20 mg daily Metoprolol 50 mg 2 times a day Acetaminophen every 6 hours when necessary Levothyroxine 75 g daily Ketotifen opthalmic drops Aspirin 81 mg daily Clonidine 0.1 mg 2 times a day Furosemide 20 mg daily, notes indicate a recent twice a day Lisinopril 20 mg daily Amlodipine 5 mg daily Past Medical History Pacemaker: 3rd degree heart block post pacemaker hyponatremia hyperthyroidism chronic chest pain Reports: COPD, GERD, Hypertension Reports: Obesity Past Surgical History Uterus biposy Reports: Pacemaker insertion Smoking History Former Smoker Social History Pt came with her daughters. Other Social History: Good social support, Local resident Ambulatory Status Cane Review of Systems + hypertension Full Review of Systems Constitutional: Denies: Chills, Fever Respiratory: Denies: Non-productive cough, Shortness of breath Cardiovascular: Reports: Chest pain Musculoskeletal: Reports: Back pain Complete sys rev & neg: except as marked. Physical Exam Vital Signs Vital Signs Date Time Temp Pulse Resp B/P Pulse Ox O2 Delivery O2 Flow Rate FiO2 12/21/16 04:20 84 21 135/67 100 Room Air 12/21/16 03:51 85 19 143/62 99 Room Air 12/21/16 03:23 82 24 153/81 99 Room Air 12/21/16 00:51 84 13 154/102 100 Room Air 12/20/16 23:19 36.5 86 16 191/82 97 Room Air Initial VS: Reviewed Head / Eyes: Atraumatic, Normocephalic, PERRL ENT: Mucous membranes moist, Conjunctiva normal, No scleral icterus Neck: Supple, Full range of motion Abdomen / GI: Soft, Non-tender, No guarding, No rebound, No distention Extremities: Vascular intact, Neuro intact Skin: Warm, Dry, No cyanosis Neurologic: Alert, Oriented, Nonfocal Psychiatric: Mood/affect normal, Behavior normal, Normal thought content General/Constitutional: Awake, Alert, Cooperative, Not toxic appearing Respiratory / Chest: Atraumatic, Breath sounds NL, Breath sounds = bilat, No respiratory distress, No rhonchi Chest pain is reproducible with palpation of the sternum Bibasilar rales with inspiration Cardiovascular: Heart rate NL Heart Rate / Rhythm: Positive: Irreg irregular rhythm Lower Ext Edema: Positive: Bilateral 2+, Pitting Back: Atraumatic, Inspection NL Interpretation & Diagnostics Lab Results Interpretation Result Diagram: 12/21/16 0104 12/21/16 0104 Test 12/21/16 01:04 12/21/16 01:12 White Blood Count 7.2th/mm3 (3.8-10.1) Red Blood Count 3.23mil/mm3 (3.90-5.20) Hemoglobin 10.2g/dL (12.0-15.6) Hematocrit 31.9% (35.0-46.0) Mean Corpuscular Volume 98.8fL (81-100) Mean Corpuscular Hemoglobin 31.6pg (27.0-35.0) Mean Corpuscular Hemoglobin Concent 32.0% (32.0-37.0) Red Cell Distribution Width 13.1% (12.3-15.4) Platelet Count 416bil/L (150-400) Neutrophils (%) (Auto) 73.2% (40-74) Lymphocytes (%) (Auto) 12.2% (14-46) Monocytes (%) (Auto) 9.4% (4-12) Eosinophils (%) (Auto) 4.6% (0-5) Basophils (%) (Auto) 0.3% (0-3) Sodium Level 132mEq/L (134-144) Potassium Level 4.8mEq/L (3.5-5.2) Chloride Level 93mEq/L (97-108) Carbon Dioxide Level 25mmol/L (18-29) Blood Urea Nitrogen 21mg/dL (8-27) Creatinine 0.84mg/dL (0.57-1.00) Estimat Glomerular Filtration Rate 93mL/min (>59) Glucose Level 121mg/dL (60-99) Calcium Level 9.0mg/dL (8.5-10.1) Magnesium Level 2.0mg/dL (1.6-2.6) Total Bilirubin 0.3mg/dL (0.0-1.2) Aspartate Amino Transf (AST/SGOT) 23U/L (0-50) Alanine Aminotransferase (ALT/SGPT) 15U/L (0-32) Alkaline Phosphatase 89U/L (25-165) Troponin T 0.010ug/L (0.0-0.011) Pro-B-Type Natriuretic Peptide 4972pg/mL (0-738) Total Protein 7.7g/dL (6.4-8.4) Albumin 4.0g/dL (3.4-5.0) Hold Purple Top Tube Received (Received) Hold Blue Top Tube Received (Received) Hold [place] Top Tube Received (Received) Hold [place] Top Tube Received (Received) ECG Interpretation ECG Interpretation: Atrial fibrillation with a rate of 85. Unchanged from prior other than rate is now normalized. 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 Pt rates the pain at a 7 or 8/10 with radiation to the back. Pt describes her pain as a "burping sensation" discomfort. The pt was at admitted to [facility] about 3 weeks ago for similar sx at which she had a full workup and was diagnosed with paroxysmal a-fib, GALO, hyperkalemia, and hypovolemic hyponatremia. Echocardiogram obtained during that visit was interpreted as below. Interpretation Summary 1. Normal left ventricular size with normal wall thickness and hyperdynamic systolic function. 2. Grossly normal right ventricular size with normal systolic function. The estimated RVSP is 38 mm Hg with an estimated low right atrial pressure. 3. No evidence for significant valvular pathology Cloth Bale Header: Dr. Grijalva Her x-ray today shows increased pulmonary vascular congestion, her lung sounds are wet, and she has significant lower extremity edema with 2+ pitting bilateral. ProBNP is near 5000 and is higher than it has been ever before. She was treated with Lasix 20 mg IV as well as with nitroglycerin paste to lower her blood pressure. The nitroglycerin also to avoid her chest pain. She is admitted for further evaluation and treatment of heart failure. There is no evidence of acute coronary syndrome on initial EKG or troponin. Source of Hx: Old records, Family Time of Eval: 02:54 Patient Status: Pain improved Re-Evaluation/Progress Note: Pt rechecked. Blood pressure is improved 134/60 without medication. Pt reported 6/10 chest pain, which will be treated with nitroglycerin and she will be given lasix. Informed pt of plan for admission. Pt understands and agrees with plan for admission. All questions addressed. Time of Eval: 03:45 Re-Evaluation/Progress Note: Chest pain has nearly resolved at this time Consultation : Referral / Consult Name: Lin Mejia DO [employer] Lead: Will see patient, Accepts admit Counseled Regarding: Diagnosis, Lab results, Need for admission Discharge & Departure Primary Impression: CHF (congestive heart failure) Congestive heart failure type: unspecified congestive heart failure type Congestive heart failure chronicity: unspecified congestive heart failure chronicity Qualified Code: I50.9 - Heart failure, unspecified Additional Impressions: Chest pain Chest pain type: unspecified Qualified Code: R07.9 - Chest pain, unspecified Hypertensive urgency Disposition: ADMITTED TO HOSPITAL Discharge Condition All VS Reviewed: Yes Condition: Stable Referrals: Jeanette Key MD (PCP) Scribe Attestation Portions of this note were transcribed by oMde Murcia and Patty Sahni. IDr. Ledbetter personally performed the history, physical exam and medical decision-making; I reviewed and confirmed the accuracy of the information in the transcribed note. Signed by: Mode Murcia and Verenice Acevedo, and 0140. copies to: Jeanette Key MD, Gary R DO December 21, 2016 00:36 Patty Sol December 21, 2016 01:05 MODE MURCIA December 21, 2016 02:50
[2016-12-21 01:24] LABS: BASOPHILS % (AUTO) 0.3 % (0-3); EOSINOPHILS % (AUTO) 4.6 % (0-5); MONOCYTES % (AUTO) 9.4 % (4-12); Mean Corpuscular Hemoglobin 31.6 pg (27.0-35.0); Mean Corpuscular Volume 98.8 fL (81-100); NEUTROPHILS % (AUTO) 73.2 % (40-74); Platelet Count 416 bil/L (150-400)
[2016-12-21 02:01] LABS: TROPONIN T 0.01 ug/L (0.0-0.011)
[2016-12-21] MEDS ORDERED: Nitroglycerin 2% 1 Gm Ointment TOPICAL SCH (03:00)
[2016-12-21] MEDS ORDERED: Furosemide 10 mg/mL 4 mL Inj IVPUSH ONE (03:00)
[2016-12-21] MEDS ORDERED: Atropine 1 mg/10 mL (Code) Syringe IVPUSH PRN (04:05)
[2016-12-21] MEDS ORDERED: Alum-Mag Hydrox-Simeth 30 mL Suspension PO PRN (04:05)
[2016-12-21] MEDS ORDERED: Senna-Docusate 8.6-50 mg Tablet PO PRN (04:05)
[2016-12-21] MEDS ORDERED: Ondansetron 2 mg/mL 2 mL Inj IVPUSH PRN (04:05)
[2016-12-21] MEDS ORDERED: Polyethylene Glycol (PEG) 17 Gm Powder PO PRN (04:05)
[2016-12-21] MEDS ORDERED: _HYDROcodone/APAP 5-325 mg Tablet PO PRN (04:10)
--- NOTE | 2016-12-21 04:24 | PCM.HPMED ---
Subjective Date of Service December 21, 2016 Primary Provider: Admitting Physician: Primary Care Physician: Jeanette Key MD Attending Physician: Admit Status: From the Emergency Department Chief Complaint: Chest pain and increasing dyspnea on exertion History of Present Illness: Amber Castillo is an 86 year old woman with a PMH of Afib not on Coumadin due to substantial fall risk, 3rd degree heart block s/p pacer insertion, CHF, HTN, Hypothyroidism, Pre-diabetes, GERD, and Obesity who presents with chest pain that began earlier this evening and increasing dyspnea on exertion over the past week. The patient reports that over the past week she has experienced increasing SOB with even minimal exertion with mild associated chest pain. Earlier this evening she experienced abrupt onset substernal chest pain which she rated 8/10 and sharp, without radiation to the arm or jaw. She denies associated diaphoresis, anxiety, palpitations, or pain with deep inspiration. She was recently admitted earlier this month for an episode of chest pain which was attributed to new onset Afib and subsequent demand ischemia; during this hospitalization and subsequent follow up with her PCP the patient has had several changes to her cardiac meds as outlined below: STOP taking the following medications: -Amlodipine -Furosemide -Clonidine -Lisinopril -Ibuprofen or other non-steroidal anti-inflammatory medications for example: Advil, aleve, naproxen etc. (If you are not sure, contact your primary care provider) START taking the following medications: -Hydrochlorothiazide 25mg. Take one tablet by mouth once daily. -Aspirin 325mg. Take one tablet by mouth once daily. (Aspirin increased to 325mg from 81mg). At her PCP follow up visit the patient's Aspirin was switched to plavix, and her HCTZ was switched back to Furosemide. In the ED the patient's Troponin was negative x1, she had a CXR which showed possible worsening of her CHF with an increase in cardiomegaly and increasing vascular markings; Nitro paste was administered to good effect without previously documented hypotension secondary to Nitro. Review of Systems: Comprehensive ROS negative except as outlined above. Allergies Coded Allergies: nitroglycerin (Verified Adverse Reaction, Intermediate, LOW BP, 09/10/16) Home Medications Omeprazole 20 mg daily Metoprolol 50 mg 2 times a day Acetaminophen every 6 hours when necessary Levothyroxine 75 g daily Ketotifen opthalmic drops Plavix 75 mg PO daily Clonidine 0.1 mg 2 times a day Furosemide 20 mg daily, notes indicate a recent twice a day Lisinopril 20 mg daily Amlodipine 5 mg daily PMH Pacemaker: 3rd degree heart block post pacemaker hyponatremia hyperthyroidism chronic chest pain Afib Reports: COPD, GERD, Hypertension Reports: Obesity Surgical History Uterus biposy Reports: Pacemaker insertion Family History History of DM and HTN in multiple relatives Social History Hx Alcohol Use: No Hx Substance Use: No Hx Tobacco Use: Yes (Quit 20 years ago) Smoking Status: Former Smoker Exam Vital Signs Vital Sign - Last Date Time Temp Pulse Resp B/P Pulse Ox O2 Delivery O2 Flow Rate FiO2 12/21/16 03:51 85 19 143/62 99 Room Air 12/20/16 23:19 36.5 Exam Gen: A/O x3 pleasant elderly woman in NAD Neck: Supple, non tender, no JVD HEENT: PERRL, EOMI, no scleral icterus, no conjunctival pallor CV: RRR, no murmurs rubs or gallops, minimal reproducible chest pain on palpation of the sternum Resp: Lungs with mild bibasilar crackles, no rales or rhonchi Abdomen: soft, non tender, obese, no organomegaly, BS+ 4Q Extr: Mild to moderate BL LE edema, no cyanosis or clubbing Neuro: CN 2-12 grossly intact, no focal neurologic deficit Psych: Pleasant and appropriate mood and affect Lab and Diagnostics Result Diagram: 12/21/1610312/21/16103 Microbiology Item Value Date Time Red Blood Count 3.23 mil/mm3 L 12/21/16103 Red Cell Distribution Width 13.1 % 12/21/16103 Neutrophils (%) (Auto) 73.2 % 12/21/16103 Lymphocytes (%) (Auto) 12.2 % L 12/21/16103 Monocytes (%) (Auto) 9.4 % 12/21/16103 Eosinophils (%) (Auto) 4.6 % 12/21/16103 Basophils (%) (Auto) 0.3 % 12/21/16103 Estimat Glomerular Filtration Rate 93 mL/min 12/21/16103 Calcium Level 9.0 mg/dL 12/21/16103 Magnesium Level 2.0 mg/dL 12/21/16103 Total Bilirubin 0.3 mg/dL 5/28/17 0104 Aspartate Amino Transf (AST/SGOT) 23 U/L 12/21/16 010 Alanine Aminotransferase (ALT/SGPT) 15 U/L 12/21/16 010 Alkaline Phosphatase 89 U/L 12/21/16 010 Troponin T 0.010 ug/L 12/21/16 010 Pro-B-Type Natriuretic Peptide 4972 pg/mL H 12/21/16 010 Total Protein 7.7 g/dL 12/21/16 010 Albumin 4.0 g/dL 12/21/16 010 X-Rays, CTs and MRIs Personal Read: Increased cardiomegaly and pulmonary vascular markings compared to prior exam, likely CHF, please correlate clinically 12-lead ECG Afib with a rate of 85, no discrete ST changes Cardiac Echo Impressions Prior ECHO from 11/29/16 Interpretation Summary 1. Normal left ventricular size with normal wall thickness and hyperdynamic systolic function. 2. Grossly normal right ventricular size with normal systolic function. The estimated RVSP is 38 mm Hg with an estimated low right atrial pressure. 3. No evidence for significant valvular pathology . Assessment & Plan Amber Castillo is an 86 year woman with a PMH of CHF, Afib, HTN, and recent admission for chest pain likely secondary to new onset Afib who presents with another episode of substernal chest pain earlier this evening and increasing CA over the past week. 1. Chest pain, POA, acute. Improved -Trop negative x1, will repeat Q4 hrs x3 -ECG without concerning ST changes -CXR perhaps indicative of worsening CHF, awaiting official radiologist read -Patient with past hypotensive reaction to Nitro, has tolerated a 2 inch stip of Nitro this admission to good effect without adverse reaction -Sublingual Nitro PRN for further chest pain, with instructions to closely monitor BP after use -Tele monitoring 2. Dyspnea, POA, chronic. Active -Patient with increasing CA for the past week with elevation in BNP -Reviewed CXR and past ECHO report (12/01), Normal EF reported with normal left ventricular size, normal systolic function, new tricuspid regurgitation -Furosemide [address] of home diuretic -Continue home Metoprolol tartrate 50 mg PO BID -Monitor I/Os and standing weight -Limited ECHO ordered given recent ECHO completed, concern for worsening cardiac function given relatively acute onset of dyspnea 3. Paroxysmal Afib, POA, chronic. Active -Continue home Metoprolol as above -Continue home Plavix 75 mg PO daily -Tele monitoring as above -Currently rate controlled 4. HTN, POA, chronic. Active -Continue home Metoprolol as above -IV Lasix as above -Continue to monitor BP 5. Morbid Obesity -Heart healthy diet -Bariatric bed and equipment -Consider dosage adjustments when appropriate 6. Third-degree heart block s/p dual chamber pacemaker, 2005. Presumed stable. -[employer] visit for device check on 11/19/16- pacemaker stable, followup in 3months. 7. History of obstructive sleep apnea, chronic. present on admission. Active. -Reportedly non-compliant with CPAP -Patient received supplemental oxygen as needed, and declined CPAP. -Recommend close outpatient followup for sleep study. 8. History of pre-diabetes, present on admission. Presumed stable. -Glucose 188 -HbA1c 5.9 on last admission -Low dose correctional insulin lispro Other chronic conditions managed with home meds -Hypothyroid: Continue home Levothyroxine -Chronic Pain: Continue home Hydrocodone -COPD: Continue home Levalbuterol PRN -Constipation: Senna and Miralax Code Status: FULL CODE Disposition: Observation, patient can likely DC home with no needs if remainder of cardiovascular work up is negative Pain Evaluation: Adequate Pain Control GI Prophylaxis: H2 shara VTE Prophylaxis: Sub-Q Heparin (Unfractionated) VTE Mechanical Devices: Intermittant Pneumatic CD Resuscitation Status: CPR: Attempt Resuscitation Attending Statement The patient was seen and examined together with house staff on 12/21/2016 and I agree with the history, exam and plan as outlined in the note above. Loco Olsen DO December 21, 2016 04:24 Lin Mejia DO December 21, 2016 05:44
[2016-12-21] MEDS ORDERED: Glucose 40% Oral Gel 15 Gm Tube PO PRN (04:50)
[2016-12-21] MEDS ORDERED: Dextrose 10% 250 ML IV PRN (04:50)
[2016-12-21] MEDS ORDERED: Albuterol 2.5 mg/3 mL Inhalation Solution NEB SCH (07:00)
--- NOTE | 2016-12-21 07:28 | NUR ---
Admit to room 3016 @0530 with Chest pain, CHF. VSS with tachycardia on ambulation. Sat'ing 98 on RA. Up to Bathroom 1pa. Oriented to room and POC on whiteboard. Slovenian speaking with family members in room able to speak Montenegrin. Offered pigment grinder but preferred family to translate. Pain 0/10 no N/V/D.
[2016-12-21] MEDS ORDERED: CLOP75TA28 PO (07:30)
[2016-12-21] MEDS ORDERED: OMEP20CA11 PO (07:30)
[2016-12-21] MEDS ORDERED: FUR20 PO (07:30)
[2016-12-21] MEDS ORDERED: TIOT18CA3 IH (07:30)
[2016-12-21] MEDS ORDERED: LEVA1.253 IH (07:30)
[2016-12-21] MEDS: Insulin LISPRO 300 Unit/3 mL Inj SUBQ SCH ×4 (08:00→22:00)
--- NOTE | 2016-12-21 09:15 | DRSVH ---
PROCEDURE: X-RAY CHEST ONE VIEW, PORTABLE ([id number]) INDICATIONS: CP TECHNIQUE: One view of the chest was acquired. COMPARISON: [facility], CR, XR CHEST 1VW (PORTABLE), 11/29/2016, 8:41. FINDINGS: Surgical changes and devices: Left-sided cardiac pacer. Lungs and pleura: Trace pleural effusions. no pneumothorax. Minimal perihilar interstitial pulmonary opacities. Mediastinum: Enlargement of the cardia subtle silhouette. Bones and chest wall: No suspicious bony lesions. Overlying soft tissues appear unremarkable. IMPRESSION: Stable enlargement of the cardiomediastinal silhouette with possible vascular congestion including trace pleural effusions. Dictated by: Blaise Us M.D. on 12/21/2016 at 9:12 Approved by: Blaise Us M.D. on 12/21/2016 at 9:13
[2016-12-21] MEDS: cloNIDine 0.1 mg Tablet PO SCH ×2 (09:27→21:46)
[2016-12-21] MEDS: Pantoprazole 20 mg ER24 Tablet PO SCH ×2 (09:27→17:27)
[2016-12-21] MEDS: Furosemide 10 mg/mL 4 mL Inj IVPUSH SCH (09:28)
[2016-12-21] MEDS: Heparin 5,000 Unit/mL Inj SUBQ SCH ×2 (09:28→17:28)
--- NOTE | 2016-12-21 09:43 | NUR ---
Med Rec Reviewed home med list with family. Filter Tender Jelly, Kae was in the room to assist with med rec info. Med Rec completed and updated. Primary nurse, Jeanna Maddox RN to address discrepancies with attending doctor.
--- NOTE | 2016-12-21 11:54 | DRSVH ---
[facility] [address] [place] [address] Echocardiogram Report Name: LUI LAWRENCE DStudy Date : 12/21/2016 Height: 55 in Hospital Exam Location: [facility] Weight: 195 lb Gender: Female BSA: 1.7 m2 : 1930 Age: 86 yrs BP: 162/ 82 mmHg Reason For Study: Dyspnea Ordering Physician: HOSPITALIST [facility] Performed By: Luca Campbell Referring Physician: LOIDA QUEEN Interpretation Summary Limited Echo to assess for dyspnea: The left ventricle is hyperdynamic, with ejection fraction is estimated to be >80%. There is no pericardial effusion. Compared to the Echo done 12/01/2016, no significant change. Procedure: A two-dimensional transthoracic echocardiogram with color flow and Doppler was performed in limited views only. A contrast injection of Definity was performed to improve assessment of LV function. The study quality was technically difficult. Comparison is made with the echocardiogram of 12/01/16. The patient was in atrial fibrillation with heart rates between 81 -104 bpm during the exam. Left Ventricle: The left ventricle is normal in size. The left ventricle is hyperdynamic. There has been no significant change since the previous exam. The ejection fraction is estimated to be >80%. Right Ventricle: The right ventricle grossly appears normal in size with probable normal systolic function. There is a pacemaker lead in the right ventricle. Tricuspid Valve: The right ventricular systolic pressure is estimated at 35 mmHg assuming a right atrial pressure of 3 mm Hg. Pericardium/ Pleura There is no pericardial effusion. Doppler Measurements & Calculations TR max asad: 279.3 cm/sec MV V2 mean: 89.2 cm/sec TR max P.5 mmHg MV mean P.9 mmHg MV V2 VTI: 28.1 cm Reading Physician:11:55 AM
[2016-12-21] MEDS ORDERED: Levalbuterol 0.63 mg/3 mL Inhalation Solution NEB PRN (13:00)
--- NOTE | 2016-12-21 14:00 | NUR ---
LIMON signed by pt's daughter who is at bedside. Copy of LIMON given.
--- NOTE | 2016-12-21 15:54 | NUR ---
Social Work: Brief Note Data: Pt is an 86 y/o female admitted for CHF, chest pain. Pt's PCP is Dr Key, pt's insurance is Medicare with [facility] supp. EMR reviewed. Readmit score not listed. EVENT MGR attempted Initial Assessment, pt out of room. Pt was recently admitted the beginning of November, information below from that admission. Pt lives with her son and uses a walker at baseline. Pt is Hebrew speaking and was set up with Claudine BLACK for RN, PT, and POLYMER CHEMIST at d/c. A JAMES referral was made on 11/30/16. Pt's last hospitalization was a SNF qualifying stay, but pt declined SNF. Pt given information for [facility] last admission. EVENT MGR will follow up with pt to complete initial assessment at a later time. Plan: Pt will likely d/c home, possibly with HH, with family when medically stable unless SNF is recommended. EVENT MGR will continue to follow and will complete initial assessment at a later time. SORAIDA Burrows
--- NOTE | 2016-12-21 18:01 | NUR ---
Cardiac/Activity Reports CP is / and "sore" today, or says she has no pain at all. Continues to be tele monitored with consistent Afib 70-90's with periodic 110's spikes with activity. Echocardiogram performed and resulted with no significant changes; plans for a nuclear stress test tomorrow--- provided telugu printout about procedure to pt. and family. Spent the day in her room with her daughters. She was up to the EOB for meals. Uses call light appropriately.
[2016-12-22] VITALS (7 sets, daily range): BP systolic 104–157; BP diastolic 66–88; PULSE 68–117; RESP 18–20; O2SAT 95–98
[2016-12-22] MEDS: Heparin 5,000 Unit/mL Inj SUBQ SCH ×2 (00:08→08:58)
--- NOTE | 2016-12-22 05:30 | NUR ---
Noc Activity Pt denies chest pain, sob, n/v or abd discomfort. Has been pleasant and cooperative with care. Pt's family assisting with care. Educate pt and family about the upcoming stress test. Has been NPO since midnight. Hourly rounding done. VSS and has been afebrile. Will continue to monitor.
[2016-12-22 06:22] LABS: Mean Corpuscular Volume 97.9 fL (81-100)
[2016-12-22] MEDS: Insulin LISPRO 300 Unit/3 mL Inj SUBQ SCH ×2 (08:00→12:00)
--- NOTE | 2016-12-22 08:56 | NUR ---
Evaluation completed. Please go to "Notes" then click on "Assessments and Notes" (bottom left corner of screen). Then select appropriate discipline tab on top of screen.
[2016-12-22] MEDS: Pantoprazole 20 mg ER24 Tablet PO SCH (08:58)
--- NOTE | 2016-12-22 09:10 | NUR ---
Off Unit Patient to stress test.
--- NOTE | 2016-12-22 12:00 | DRSVH ---
PROCEDURE: EITHER REST OR STRESS ONLY Pharmacological stress myocardial perfusion SPECT; gated images not acquired. RADIOPHARMACEUTICAL: 21.4 mCi of Tc-99m sestamibi intravenously at peak pharmacologic stress. INDICATIONS: Chest Pain. TECHNIQUE: Radiopharmaceutical was injected at peak stress test. SPECT images were obtained. SPECT myocardial perfusion images were displayed in short axis, horizontal long axis, and vertical axis vi ews. COMPARISON: , [place], MYOCARD PERF SPECT SINGLE, 06/30/2013, 13:53. CARDIAC STRESS: A pharmacologic stress test was performed under the supervision of an attending bethany peters, using an infusion of lexiscan 0.4mg IV X1. Hemodynamic data: Systolic blood pressure dropped to 80 with lexiscan. Blood pressure improved quic kly with aminophylline. Symptoms: The patient denied anginal chest pain during drug infusion. Aminophylline: 100mg EKG: No diagnostic EKG changes of ischemia; atrial fibrillation present during the entire study. FINDINGS: Raw data: There is good tracer uptake by the myocardium. No significant motion artifacts. Left ventricular function: Gated images were not obtained to assess wall motion and ejection fractio n, due to irregular heart rate. Myocardial perfusion: There is normal distribution of activity in the left and right ventricular seamus cardium. No perfusion defects. IMPRESSION: Low risk normal pharmaceutical stress only perfusion study. 1) Normal stress only pharmaceutical stress perfusion images with no evidence of ischemia or infarcti on. 2) No ECG changes suggestive of ischemia with lexiscan. 3) No angina or angina equivalent symptoms with lexiscan. 4) Compared to the nuclear stress test done 06/30/2013, no significant change. Dictated by: Sarah Mansfield M.D. on 12/22/2016 at 11:53 Approved by: Sarah Mansfield M.D. on 12/22/2016 at 11:58
--- NOTE | 2016-12-22 12:53 | NUR ---
Evaluation completed. Please go to "Notes" then click on "Assessments and Notes" (bottom left corner of screen). Then select appropriate discipline tab on top of screen.
[2016-12-22] MEDS: Furosemide 10 mg/mL 4 mL Inj IVPUSH SCH (13:05)
[2016-12-22] MEDS: cloNIDine 0.1 mg Tablet PO SCH (13:07)
[2016-12-22] MEDS ORDERED: CLON0.1T14 PO (13:22)
[2016-12-22] MEDS ORDERED: LISI10TA PO (13:22)
--- NOTE | 2016-12-22 13:29 | PCM.DIMED ---
Discharge Instructions Date of Service December 22, 2016 Dates of Hospitalization December 21, 2016 at 04:37 Discharge Diagnosis Discharge Diagnosis # Chronic hypertension with acute exacerbation, present on admission. Improved. # Acute chest pain, present on admission. Resolved. Acute myocardial infarction ruled out with negative enzymes and with negative cardiac workup including negative stress test. # Acute on chronic shortness of breath, present on admission. Improved. Possibly due to acute on chronic diastolic heart failure. # Paroxysmal Afib, stable and rate controlled. 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 Presumed stable. # History of obstructive sleep apnea, chronic. present on admission. Active. - Reportedly non-compliant with CPAP - Recommend close outpatient followup for sleep study. # History of pre-diabetes, present on admission. Presumed stable. -HbA1c 5.9 on last admission # Chronic Hypothyroid, presumed stable. # Chronic Pain # COPD. Stable. Diet Discharge Diet: Low fat, Low Sodium, Heart Healthy Activity Discharge Activity: Home Health Phyical Therapy Call your provider Call your provider for: Fever or Chills, Shortness of breath, Bleeding, Chest pain Patient Instructions Patient Instructions Seek immediate medical attention if any new or worsening signs or symptoms occur. Thin/Soft diet. Continue with instruction provided by the speech therapist regarding general aspiration precautions (sitting upright, small bites/sips, alternating liquids and solids, no talking with food/liquid in mouth) Follow-up plan 1. Followup with primary care provider in 1-2 weeks. Follow-up Provider: Jeanette Key MD, Masoud December 22, 2016 13:29
--- NOTE | 2016-12-22 13:46 | PCM.DC.MED ---
Discharge Summary Date of Service December 22, 2016 Dates of Hospitalization Date of Hospital Admission December 21, 2016 at 04:37 Date of Discharge: December 22, 2016 Providers: Admitting Physician: Lin Mejia DO Primary Care Physician: Jeanette Key MD Attending Physician: Lin Mejia DO Diagnosis at Time of Discharge Diagnosis at Time of Discharge # Chronic hypertension with acute exacerbation, present on admission. Improved. # Acute chest pain, present on admission. Resolved. Acute myocardial infarction ruled out with negative enzymes and with negative cardiac workup including negative stress test. # Acute on chronic shortness of breath, present on admission. Improved. Possibly due to acute on chronic diastolic heart failure. # Paroxysmal Afib, stable and rate controlled. # Morbid Obesity # Third-degree heart block s/p dual chamber pacemaker, 2004. Presumed stable. # History of obstructive sleep apnea, chronic. present on admission. Active. - Reportedly non-compliant with CPAP - Recommend close outpatient followup for sleep study. # History of pre-diabetes, present on admission. Presumed stable. -HbA1c 5.9 on last admission # Chronic Hypothyroid, presumed stable. # Chronic Pain # COPD. Stable. Procedures XRay, CTs & MRIs Date of Service: 12/21/16 0110 PROCEDURE: X-RAY CHEST ONE VIEW, PORTABLE ([id number]) IMPRESSION: Stable enlargement of the cardiomediastinal silhouette with possible vascular congestion including trace pleural effusions. Dictated by: Blaise Us M.D. on 12/21/2016 at 9:12 Approved by: Blaise Us M.D. on 12/21/2016 at 9:13 Cardiac Echo Impression Date of Service: 12/21/16 0550 Echocardiogram Report Interpretation Summary Limited Echo to assess for dyspnea: The left ventricle is hyperdynamic, with ejection fraction is estimated to be >80%. There is no pericardial effusion. Compared to the Echo done 12/01/2016, no significant change. Reading Physician:11:55 AM Other Diagnostics Date of Service: 12/22/16 0853 PROCEDURE: EITHER REST OR STRESS ONLY Pharmacological stress myocardial perfusion SPECT; gated images not acquired. IMPRESSION: Low risk normal pharmaceutical stress only perfusion study. 1) Normal stress only pharmaceutical stress perfusion images with no evidence of ischemia or infarction. 2) No ECG changes suggestive of ischemia with lexiscan. 3) No angina or angina equivalent symptoms with lexiscan. 4) Compared to the nuclear stress test done 06/30/2013, no significant change. Dictated by: Sarah Mansfield M.D. on 12/22/2016 at 11:53 Approved by: Sarah Mansfield M.D. on 12/22/2016 at 11:58 Brief History As noted in H&P by Dr. Olsen: Amber Castillo is an 86 year old woman with a PMH of Afib not on Coumadin due to substantial fall risk, 3rd degree heart block s/p pacer insertion, CHF, HTN, Hypothyroidism, Pre-diabetes, GERD, and Obesity who presents with chest pain that began earlier this evening and increasing dyspnea on exertion over the past week. The patient reports that over the past week she has experienced increasing SOB with even minimal exertion with mild associated chest pain. Earlier this evening she experienced abrupt onset substernal chest pain which she rated 8/10 and sharp, without radiation to the arm or jaw. She denies associated diaphoresis, anxiety, palpitations, or pain with deep inspiration. She was recently admitted earlier this month for an episode of chest pain which was attributed to new onset Afib and subsequent demand ischemia; during this hospitalization and subsequent follow up with her PCP the patient has had several changes to her cardiac meds as outlined below: STOP taking the following medications: -Amlodipine -Furosemide -Clonidine -Lisinopril -Ibuprofen or other non-steroidal anti-inflammatory medications for example: Advil, aleve, naproxen etc. (If you are not sure, contact your primary care provider) START taking the following medications: -Hydrochlorothiazide 25mg. Take one tablet by mouth once daily. -Aspirin 325mg. Take one tablet by mouth once daily. (Aspirin increased to 325mg from 81mg). At her PCP follow up visit the patient's Aspirin was switched to plavix, and her HCTZ was switched back to Furosemide. In the ED the patient's Troponin was negative x1, she had a CXR which showed possible worsening of her CHF with an increase in cardiomegaly and increasing vascular markings; Nitro paste was administered to good effect without previously documented hypotension secondary to Nitro. Hospital Course 1. Chest pain, POA, acute. Resolved. -Ruled out for ACS by negative Trops -Echo without new change -Stress test negative 2. Dyspnea, POA, acute on chronic. Improved -Possibly acute on chronic diastolic failure brought on by recent change in BP meds and presenting significant hypertension -Received IV Lasix during this hospital and reports breathing much improved -Will d/c home with continued oral Lasix 3. Paroxysmal Afib, POA, chronic. stable and rate controlled. 4. Hypertension, poorly controlled on presentation. Now improved after adding additional agents. -Continue home Metoprolol -Restarted Lisinopril at lower dose of 10mg daily (this was stopped last time presumably due to acute kidney injury) -Restarted Clonidine 0.1mg bid as well -BP well controlled on above regimen by time of discharge. 5. Concern for aspiration by patient and family -Evaluated by speech therapy without significant finding 6. 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 Presumed stable. -[employer] visit for device check on 11/19/16- pacemaker stable, followup in 3months. 7. History of obstructive sleep apnea, chronic. present on admission. Active. -Reportedly non-compliant with CPAP -Patient received supplemental oxygen as needed, and declined CPAP. -Recommend close outpatient followup for sleep study. 8. History of pre-diabetes, present on admission. Presumed stable. -HbA1c 5.9 on last admission Other chronic conditions managed with home meds -Hypothyroid: Continue home Levothyroxine -Chronic Pain: Continue home Hydrocodone -COPD: Continue home Levalbuterol PRN -Constipation: Senna and Miralax Exam Vital Signs (Last) Date Time Temp Pulse Resp B/P Pulse Ox O2 Delivery O2 Flow Rate FiO2 12/22/16 11:19 37.0 101 18 118/76 98 Room Air Exam Lungs CTA bilaterally. CV: RRR Abdomen: Soft, nt, nd, +bs Neuro: non-focal Test 12/21/16 01:04 12/21/16 01:12 12/21/16 05:27 12/21/16 09:19 Neutrophils (%) (Auto) 73.2% (40-74) Lymphocytes (%) (Auto) 12.2% (14-46) Monocytes (%) (Auto) 9.4% (4-12) Eosinophils (%) (Auto) 4.6% (0-5) Basophils (%) (Auto) 0.3% (0-3) Magnesium Level 2.0mg/dL (1.6-2.6) Total Bilirubin 0.3mg/dL (0.0-1.2) Aspartate Amino Transf (AST/SGOT) 23U/L (0-50) Alanine Aminotransferase (ALT/SGPT) 15U/L (0-32) Alkaline Phosphatase 89U/L (25-165) Pro-B-Type Natriuretic Peptide 4972pg/mL (0-738) Total Protein 7.7g/dL (6.4-8.4) Albumin 4.0g/dL (3.4-5.0) Hold Purple Top Tube Received (Received) Hold Blue Top Tube Received (Received) Hold Newton Top Tube Received (Received) Hold Deutsch Top Tube Received (Received) Hold Urine Received (Received) Troponin T 0.010ug/L (0.0-0.011) Test 12/22/16 05:55 White Blood Count 3.6th/mm3 (3.8-10.1) Red Blood Count 2.87mil/mm3 (3.90-5.20) Hemoglobin 8.9g/dL (12.0-15.6) Hematocrit 28.1% (35.0-46.0) Mean Corpuscular Volume 97.9fL (81-100) Mean Corpuscular Hemoglobin 31.0pg (27.0-35.0) Mean Corpuscular Hemoglobin Concent 31.7% (32.0-37.0) Red Cell Distribution Width 12.8% (12.3-15.4) Platelet Count 360bil/L (150-400) Sodium Level 133mEq/L (134-144) Potassium Level 4.2mEq/L (3.5-5.2) Chloride Level 94mEq/L (97-108) Carbon Dioxide Level 28mmol/L (18-29) Blood Urea Nitrogen 17mg/dL (8-27) Creatinine 0.94mg/dL (0.57-1.00) Estimat Glomerular Filtration Rate 81mL/min (>59) Glucose Level 104mg/dL (60-99) Calcium Level 8.7mg/dL (8.5-10.1) Microbiology Results Item Value Date Time Red Blood Count 3.23 mil/mm3 L 12/21/16103 Red Cell Distribution Width 13.1 % 12/21/16103 Neutrophils (%) (Auto) 73.2 % 12/21/16103 Lymphocytes (%) (Auto) 12.2 % L 12/21/16103 Monocytes (%) (Auto) 9.4 % 12/21/16103 Eosinophils (%) (Auto) 4.6 % 12/21/16103 Basophils (%) (Auto) 0.3 % 12/21/16103 Estimat Glomerular Filtration Rate 93 mL/min 12/21/16103 Calcium Level 9.0 mg/dL 12/21/16103 Magnesium Level 2.0 mg/dL 12/21/16103 Total Bilirubin 0.3 mg/dL 12/21/16103 Aspartate Amino Transf (AST/SGOT) 23 U/L 12/21/16103 Alanine Aminotransferase (ALT/SGPT) 15 U/L 12/21/16103 Alkaline Phosphatase 89 U/L 12/21/16103 Troponin T 0.010 ug/L 12/21/16103 Pro-B-Type Natriuretic Peptide 4972 pg/mL H 12/21/16103 Total Protein 7.7 g/dL 12/21/16103 Albumin 4.0 g/dL 12/21/16103 Discharge Medications Discharge Medications Clonidine (Catapres) 0.1 Mg Tablet 0.1 MG PO BID Prescribed by: TISH CORTÉS MD Clopidogrel (Clopidogrel) 75 Mg Tablet 75 MG PO DAILY (Reported) Furosemide (Furosemide) 20 Mg Tab 20 MG PO DAILY (Reported) Levothyroxine (Levothyroxine) 75 Mcg Tablet 75 MCG PO DAILY (Reported) Lisinopril (Lisinopril) 10 Mg Tablet 10 MG PO DAILY Prescribed by: TISH CORTÉS MD Metoprolol Tartrate (Metoprolol Tartrate) 50 Mg Tablet 75 MG PO BIDWM (Reported ) Omeprazole (Omeprazole) 20 Mg Capsule.dr 20 MG PO DAILY (Reported) As needed Acetaminophen (Acetaminophen) 500 Mg Tablet 500 MG PO Q6H PRN PRN NEEDED ( Reported) Levalbuterol HCl (Xopenex) 1.25 Mg/3 Ml Vial.neb 1.25 MG IH Q8H PRN PRN For Shortness of Breath (Reported) Followup Plan Disposition: Home with resume home health RN and PT Follow-up plan 1. Followup with primary care provider in 1-2 weeks. Discharge Diet: Low fat, Low Sodium, Heart Healthy Discharge Activity: Home Health Phyical Therapy Patient Instructions Seek immediate medical attention if any new or worsening signs or symptoms occur. Thin/Soft diet. Continue with instruction provided by the speech therapist regarding general aspiration precautions (sitting upright, small bites/sips, alternating liquids and solids, no talking with food/liquid in mouth) Follow-up Provider: Jeanette Key MD Time spent 40 min copies to: Jeanette Key MD, Masoud December 22, 2016 13:46
--- NOTE | 2016-12-22 13:47 | NUR ---
Social Work-initial assessment/discharge: Data:See initial assessment.Pt is a 86 y/o female who was admitted on 12/21/16 for CHF per H&P. Pt's insurance is [employer] and [employer] and PCP is Jeanette Key MD. EMR Reviewed. Pt's readmission score is 2. VIRIDIANA met with pt and family at bedside with assessment nurse, SW role explained. Pt resides at home with her son and daughter in law where she remains independent with basic ADLs. Pt uses a fww at baseline and does not drive. Pt is currently open with [facility] services, order received for resume HH RN and PT. VIRIDIANA called [facility] with [facility] and confirmed they are open with pt for RN and Pt. [facility] aware pt is discharging today and resume HH orders have been provided. Pt has no SNF history. Pt has no terminal worker care insurance or VA benefits. SW discussed DPOA/ advanced directive, paperwork has been provided. PT worked with pt and have cleared pt for home with HH, pt ambulating 100ft. PT and family confirm plan of home with HH and family to provide transport home. All updated and agreeable to plan. Assessment:Pt who has support from family and HH. Plan:Pt to discharge home today via POV. Resume HH orders provided to [facility] For RN and PT, 3 times a week. Pt and family updated and agreeable to plan. SORAIDA Saenz Addendum: 12/22/16 at 1354 by MELVIN LENNON SS Amended: Links added.
--- NOTE | 2016-12-22 15:26 | NUR ---
Discharge Patient departed unit via wheelchair, accompanied by staff and family. Patient alert and oriented at time of discharge. Prior to discharge, patient denied chest pain, abdominal discomfort, nausea. Patient did exhibit some shortness of breath with activity, denies shortness of breath at rest. Patient appetite good-changed to soft diet, per speech therapy, prior to discharge. discharge instructions/medications reviewed with patient/family, via hardwood floor layer on a stick, prior to discharge. All questions addressed. Patient belongings, discharge instructions and prescriptions in hand.
== END 2016-12-22 15:28 | disposition home or self-care (01) ==
LOC: SED 23:11 → MPC 12-21 04:37
PROVIDERS: ADMIT Internal Medicine; ATTEND Internal Medicine
DX: I10 Essential (primary) hypertension (principal); R07.9 Chest pain, unspecified; R06.02 Shortness of breath; R73.03 Prediabetes; I48.0 Paroxysmal atrial fibrillation; I44.2 Atrioventricular block, complete; Z95.0 Presence of cardiac pacemaker; E03.9 Hypothyroidism, unspecified; K21.9 Gastro-esophageal reflux disease without esophagitis; J44.9 Chronic obstructive pulmonary disease, unspecified; G47.33 Obstructive sleep apnea (adult) (pediatric); G89.29 Other chronic pain; Z79.82 Long term (current) use of aspirin; Z79.02 Long term (current) use of antithrombotics/antiplatelets; Z87.891 Personal history of nicotine dependence; E66.01 Morbid (severe) obesity due to excess calories; Z68.42 Body mass index [BMI] 45.0-49.9, adult
CPT/HCPCS: 36415; 71010; 78451; 80048; 80053; 83735; 83880; 84484; 85025; 85027; 92610; 93005; 93017; 94799; 96374; 96376; 97161; 99285; A9502; C8924; G0378; G8978; G8979; G8996; G8997; G8998; J0280; J1644; J1815; J1940; J2785; Q9957

== ENCOUNTER 2017-01-28 22:30 | Inpatient (IN) | payer MEDICARE, MEDICAID ==
[~2017-01-28] VITALS: Ht 149.9 cm; Wt 88.5 kg
[~2017-01-28 22:30] MED LIST changes: -ACETAMINOPHEN ORAL; -Aspirin-Expunged Drug, Do Not Renew! PO; +CLON0.1T14 PO; +CLOP75TA28 PO; +FUR20 PO; -HYDR-4003 PO; -HYDR25TA4 PO; -LEVA1.2515 INHALATION; +LEVA1.253 IH; +LISI10TA PO; -MAGN800O PO; +OMEP20CA11 PO; -OMEP20TA86 PO; -ONDA8TAB10 PO; -POLY17PO6 PO
[2017-01-28 22:34] VITALS: BP 167/100; PULSE 73; RESP 26; O2SAT 100
[2017-01-28 23:38] VITALS: PULSE 77; RESP 18; O2SAT 98
--- NOTE | 2017-01-28 23:44 | ED.REPORT ---
HPI-Dyspnea / Wheezing Date of Service Jan 28, 2017 ED Provider: Jatinder Peters MD Pt is an 86 y/o female w/ a hx of COPD, diastolic CHF, BONI, HTN, paroxysmal a- fib, morbid obesity, 3rd degree heart block s/p pacemaker insertion, presenting to the ED with family c/o SOB onset 3 days ago. She c/o associated generalized weakness. She denies cough, sputum, fever, chest pain. The patient has been taking an antibiotic (unknown) for a UTI and the course is almost finished. The patient was last admitted 12/21-12/22 for chest pain and had a negative ACS workup including pharmaceutical stress test. She also was experiencing SOB which was thought to be caused by her diastolic CHF. Echocardiogram performed during that visit interpreted as below: Limited Echo to assess for dyspnea: The left ventricle is hyperdynamic, with ejection fraction is estimated to be >80%. There is no pericardial effusion. Compared to the Echo done 12/01/2016, no significant change. Nursing Notes Stated Complaint: TROUBLE BREATHING Chief Complaint: Respiratory Distress Nursing Notes Reviewed: Yes Allergies: Coded Allergies: nitroglycerin (Verified Adverse Reaction, Intermediate, LOW BP, 09/10/16) Scheduled Clonidine (Catapres) 0.1 Mg Tablet 0.1 MG PO BID Clopidogrel (Clopidogrel) 75 Mg Tablet 75 MG PO DAILY Furosemide (Furosemide) 20 Mg Tab 20 MG PO BID Levothyroxine (Levothyroxine) 75 Mcg Tablet 75 MCG PO DAILY Metoprolol Tartrate (Metoprolol Tartrate) 50 Mg Tablet 75 MG PO BIDWM Omeprazole (Omeprazole) 20 Mg Capsule.dr 20 MG PO DAILY Scheduled PRN Acetaminophen (Acetaminophen) 500 Mg Tablet 500 MG PO Q6H PRN PRN NEEDED Levalbuterol HCl (Xopenex) 1.25 Mg/3 Ml Vial.neb 1.25 MG IH Q8H PRN PRN For Shortness of Breath General Time Seen by MD: 23:06 Chief Complaint Shortness of breath Hx Obtained From: Patient Arrived By: Wheelchair Sudden in Onset?: No Onset Occurred: 3 days ago Symptom Duration: Since onset Severity: Current: No pain currently Severity: Maximum: No pain Recent Healthcare: Recent hospitalization Similar Sx Previous: Yes Past Medical History Past Medical History # Hypertension # Diastolic heart failure. # Paroxysmal Atrial fibrillation # Morbid Obesity # Third-degree heart block s/p dual chamber pacemaker, 2004 # History of obstructive sleep apnea - Reportedly non-compliant with CPAP # History of pre-diabetes # Hypothyroid # Chronic Pain # COPD # GERD Reports: Obesity Past Surgical History Uterus biposy Reports: Pacemaker insertion Smoking History Former Smoker Social History Has help with care from daughters Other Social History: Good social support, Local resident Ambulatory Status Wheelchair Review of Systems Constitutional: Denies: Chills, Fever Respiratory: Reports: Shortness of breath, Denies: Non-productive cough Cardiovascular: Denies: Chest pain Complete sys rev & neg: except as marked. Physical Exam Initial Vital Signs Vital Signs (First) Date Time Temp Pulse Resp B/P Pulse Ox O2 Delivery O2 Flow Rate FiO2 01/28/17 22:34 36.6 73 26 167/100 100 Room Air Initial VS: Reviewed, Vital signs abnormal Head / Eyes: Atraumatic, Normocephalic, PERRL ENT: Mucous membranes moist, Conjunctiva normal, No scleral icterus Abdomen / GI: Soft, No distention Extremities: Vascular intact, Neuro intact Skin: Warm, Dry, No cyanosis Neurologic: Alert, Oriented, Nonfocal Psychiatric: Mood/affect normal, Behavior normal, Normal thought content General/Constitutional: Awake, Alert, Cooperative, Not toxic appearing Distress / Hydration: Positive: Distress mild (secondary to dyspnea) Appearance / Presentation: Positive: Obese, morbidly Sitting in wheelchair Neck: Atraumatic, Supple, No meningismus, Full range of motion Respiratory / Chest: Breath sounds = bilat, No rales, No wheezing, No retractions, No stridor Distant breath sounds Mild tachypnea Mild respiratory distress Cardiovascular: Heart rate NL, Regular rhythm, Heart sounds NL, No gallop, No murmurs, No rubs Interpretation & Diagnostics Lab Results Interpretation Result Diagram: 01/28/17 2335 01/29/17 0300 Test 01/28/17 23:35 01/29/17 00:32 White Blood Count 4.9th/mm3 (3.8-10.1) Red Blood Count 3.49mil/mm3 (3.90-5.20) Hemoglobin 10.4g/dL (12.0-15.6) Hematocrit 30.4% (35.0-46.0) Mean Corpuscular Volume 87.1fL (81-100) Mean Corpuscular Hemoglobin 29.8pg (27.0-35.0) Mean Corpuscular Hemoglobin Concent 34.2% (32.0-37.0) Red Cell Distribution Width 12.5% (12.3-15.4) Platelet Count 307bil/L (150-400) Neutrophils (%) (Auto) 68.4% (40-74) Lymphocytes (%) (Auto) 16.6% (14-46) Monocytes (%) (Auto) 12.5% (4-12) Eosinophils (%) (Auto) 2.1% (0-5) Basophils (%) (Auto) 0.2% (0-3) Magnesium Level 2.0mg/dL (1.6-2.6) Total Bilirubin 0.4mg/dL (0.0-1.2) Aspartate Amino Transf (AST/SGOT) 18U/L (0-50) Alanine Aminotransferase (ALT/SGPT) 13U/L (0-32) Alkaline Phosphatase 86U/L (25-165) Troponin T 0.010ug/L (0.0-0.011) Pro-B-Type Natriuretic Peptide 3654pg/mL (0-738) Total Protein 7.2g/dL (6.4-8.4) Albumin 3.7g/dL (3.4-5.0) Procalcitonin 0.02ng/mL (0.00-0.08) Lactic Acid Level 1.0mmol/L (0.4-2.0) Lab Results Interpretation: Mild anemia, severe hyponatremia, hyperkalemia ECG Interpretation ECG Interpretation: Ventricularly paced rhythm rate 70 Prior EKG she was not paced Time: 23:02 Interpreted by: ED physician X-Ray Chest Interpretation Chest Xray Interpretation: Acute bibasilar infiltrates View: Portable, 1 view Interpretation / Wet Read by: Wet read ED physician Re-Eval/Medical Decision Med Decision/Clinical Course 86-year-old who presents with shortness of breath and weakness. She has bibasilar pneumonia. She is also severely hyponatremic with a sodium of 112 and mildly hyperkalemic. Blood cultures were obtained. She was given Rocephin and azithromycin IV antibiotics. She was initially hydrated with 500 mL of normal saline. Her case was discussed with the hospitalist and she will be admitted to the CCU under the hospitalist service. Source of Hx: Old records Re-Evaluation/Progress : Time of Eval: 01:19 Re-Evaluation/Progress Note: Pt rechecked. Informed pt of need for admission. Pt understands and agrees with plan for admission. All questions addressed. Consultation : Referral / Consult Name: Dylon Medina MD Consulted With: Hospitalist Call Returned at: 01:22 Family Physician: Will see patient, Agrees with eval, Agrees with plan, Accepts admit Counseled Regarding: Diagnosis, Lab results, Need for admission Discharge & Departure Impression: Primary Impression: Bilateral pneumonia Pneumonia type: due to unspecified organism Lung location: lower lobe of lung Qualified Code: J18.9 - Pneumonia, unspecified organism Additional Impressions: Hyponatremia Hyperkalemia Disposition: ADMITTED TO HOSPITAL Discharge Condition All VS Reviewed: Yes Condition: Stable Referrals: Jeanette Key MD (PCP) Crit Care Except Billable Proc Time Spent: 30-74 minutes (40 minutes) Services Performed: Patient management by me, Time spent at bedside, Reviewing test results, Reviewing imaging, Discussing patient care, Documentation in record Critical Care Notes: Pneumonia with severe hyponatremia admitted to the CCU Scribe Attestation Portions of this note were transcribed by Mode [place]cia. Dr. Fran Price personally performed the history, physical exam and medical decision-making; I reviewed and confirmed the accuracy of the information in the transcribed note. Signed by Verenice Feldman, 01/28/172349 copies to: Jeanette Key MD, Howard L MD Jan 28, 2017 23:43 MODE MURCIA Jan 28, 2017 23:50 lung Qualified Code: J18.9 - Pneumonia, unspecified organism Additional Impressions: Hyponatremia Hyperkalemia Disposition: ADMITTED TO HOSPITAL Discharge Condition All VS Reviewed: Yes Condition: Stable Referrals: Jeanette Key MD (PCP) Scribe Attestation Portions of this note were transcribed by Mode [place]. Dr. Fran Price personally performed the history, physical exam and medical decision-making; I reviewed and confirmed the accuracy of the information in the transcribed note. Signed by Verenice Feldman, 01/28/172349 copies to: Jeanette Key MD, Howard L MD Jan 28, 2017 23:43 MODE MURCIA Jan 28, 2017 23:50
[2017-01-28 23:48] LABS: BASOPHILS % (AUTO) 0.2 % (0-3); EOSINOPHILS % (AUTO) 2.1 % (0-5); MONOCYTES % (AUTO) 12.5 % (4-12); Mean Corpuscular Hemoglobin 29.8 pg (27.0-35.0); Mean Corpuscular Volume 87.1 fL (81-100); NEUTROPHILS % (AUTO) 68.4 % (40-74); Platelet Count 307 bil/L (150-400)
[2017-01-28] MEDS ORDERED: cefTRIAXone Inj 2,000 MG in Dextrose 5% Minibag Plus 50 ML IV ONE (23:50)
[2017-01-28] MEDS ORDERED: Azithromycin Inj 500 MG in Dextrose 5% w/Vial Mate 250 ML IV ONE (23:50)
[2017-01-29] VITALS (11 sets, daily range): BP systolic 118–161; BP diastolic 63–81; PULSE 70–88; RESP 16–22; O2SAT 95–99
[2017-01-29 00:28] LABS: TROPONIN T 0.01 ug/L (0.0-0.011)
[2017-01-29] MEDS ORDERED: Ondansetron 2 mg/mL 2 mL Inj ONE (00:55)
[2017-01-29] MEDS ORDERED: 0.9% Sodium Chloride 500 ML IV ONE (01:30)
[2017-01-29] MEDS ORDERED: Polyethylene Glycol (PEG) 17 Gm Powder PO PRN (01:35)
[2017-01-29] MEDS ORDERED: Alum-Mag Hydrox-Simeth 30 mL Suspension PO PRN (01:35)
[2017-01-29] MEDS ORDERED: LidocaineVisc 2%:Antacid 1:1 10 mL Syringe PO ONE (01:40)
--- NOTE | 2017-01-29 02:10 | NUR ---
Admit: Pt arrived from ER via wheelchair. Stood at bedside to get into bed. Legs very weak, 2 person total assist. SOB with activity. RA sats high 90's. HR is a-fib with intermittently paced beats. Pt is A/O x3. Pt is Serbian speaking only and family speaks very little Mauritanian. Child Welfare Specialist on a stick used. Labs redrawn to re-check values. Results pending. Pt refusing lomas cath at this time. Bladder scan done with results showing 228 ml. Will continue to monitor pt closely.
--- NOTE | 2017-01-29 03:36 | PCM.HPMED ---
Subjective Date of Service Jan 29, 2017 Primary Provider: Admitting Physician: Dylon Medina MD Primary Care Physician: Jeanette Key MD Attending Physician: Dylon Medina MD Chief Complaint: Patient is an 86-year-old female with medical history significant for diastolic heart failure, COPD, and proximal A. fib with third-degree heart block s/p pacemaker presented with shortness of breath. History of Present Illness: Per patient, she reports having significant difficulty breathing for the past 3 days. No association to chest pain, orthopnea, PND, palpitation, or dizziness. Patient denies any increase in thirst, weight gain, or leg swelling. Patient and family states no change in diet, though she is not on a low-salt diet and she normally eats fried chicken, beans, and likes fruit juice. Patient denies excessive water intake. She endorses drinking 16 ounces x4 bottles of water daily. Patient faithfully takes her medication as managed by her daughter. She is severely deconditioned, she can only walks about 10 steps before having shortness of breath. This is her baseline per the past month. There have been no changes in cough pattern, fevers, chills or night sweats. About one week ago patient reports a slip and fall on her left side in her bathroom. Her left lower ribs have been hurting her. She went to [facility] ED yesterday for the pain, for which chest x-rays were ordered and patient was discharged home. No new medication was added. In the ED, patient's vitals temperature 36.6, HR 73, RR 26, BP 167/100, pulse oximetry 100% on room air. Lab CBC unremarkable, WBC 4.9, Hgb 10.4, HCT 30.4, PLT 307. CMP however noted for sodium of 112, potassium of 5.8, and slightly elevated creatinine at 1.13, baseline is 0.94. ProBNP is 3654. Pro-calcitonin 0.02. Due to her extremely low sodium, patient required close monitor and was admitted to the CCU team for further medical management Review of Systems: A comprehensive review of systems was conducted with the patient and found to be negative except as above in the History of Present Illness. Allergies Coded Allergies: nitroglycerin (Verified Adverse Reaction, Intermediate, LOW BP, 09/10/16) Home Medications Clonidine 0.1 mg twice a day Plavix 75 mg daily Lasix 20 mg twice a day Xopenex 1.25 mg every 8 hours when necessary Levothyroxine 75 mg by mouth daily Metoprolol 75 mg twice a day Omeprazole 20 mg daily Lisinopril 10 mg daily PMH COPD Diastolic heart failure BONI on compliance to CPAP Hypertension Paroxysmal atrial fibrillation Morbidly obese Third-degree heart block s/p pacemaker GERD Surgical History Pacemaker insertion in 2004. Uterus biopsy Family History History of DM and HTN in multiple relatives Social History Hx Alcohol Use: No Hx Substance Use: No Hx Tobacco Use: Yes (Quit 20 years ago) Smoking Status: Former Smoker Exam Vital Signs Vital Sign - Last Date Time Temp Pulse Resp B/P Pulse Ox O2 Delivery O2 Flow Rate FiO2 01/29/17 02:11 79 20 131/81 96 Room Air 01/29/17 02:00 36.5 Intake and Output 01/28/17 01/28/17 01/29/17 Cumulative From/Thru 15:00 23:00 07:00 01/28/17 22:34 - 01/29/17 02:52 Intake Total 500 ml 500 ml Balance 500 ml 500 ml Intake IV Total 500 ml 500 ml Exam General: Morbidly obese, thick neck, conversational dyspnea, patient was lying flat HEENT: Normocephalic, atraumatic. PERRLA, EOMI, Anicteric sclerae, moist conjunctivae. Neck: No JVD, No bruits. No lymphadenopathy or thyromegaly. Cardiovascular: Regular rate and rhythm with no murmurs, rubs, or gallops appreciated Pulmonary: Bilateral air sound, but diminished, no crackles wheezes or rhonchi however Abdomen: +Bowel sound, Soft, nontender, nondistended. Extremities: No clubbing or cyanosis, no lymphedema, mild bilateral pitting edema to the lower legs extending up to the knees Skin: Normal temperature, turgor, and texture; no rash. No visualized skin ulcer. Neurological: CN II-VII grossly intact, moving equally on all 4 extremities Psychiatric: Normal mood and affect. AOx3 Lab and Diagnostics Result Diagram: 01/28/17233401/28/172334 Assessment & Plan Patient is an 86-year-old female with medical history significant for morbid obesity, COPD, diastolic heart failure, and third-degree heart block with pacemaker admitted for severe hyponatremia. Hyponatremia, present on admission, active - Patient is asymptomatic, euvolemic, uncertain of etiology at this point - Urine and serum osmole, urine sodium ordered - Fluid restriction at 800 mL/day - Okay to give 100 mL of 3% hypertonic saline at 20 mL/hour 1 with signs or symptoms of seizure or altered mental status - Nephrology Dr. Bey, [facility] has been consulted Hyperkalemia, present on admission, active - pt constipated, creatinine is 1.09, GFR 69 - Patient is ventricularly paced - Calcium gluconate along with insulin, D50W, and Kayexalate ordered Shortness of breath, present on admission, active - Possible related to diastolic heart failure, though chest x-ray does not show significant congestion, nor BNP showed significant elevation - Some concern for pneumonia given chest x-ray showing some signs of bibasilar infiltrate, pro-calcitonin is negative, no elevated white count however - Patient was given 1 dose of ceftriaxone and azithromycin in the ED - Trending pro-calcitonin, low threshold to start steroids and antibiotics with any signs or symptoms of infection - Holding Lasix for now, resume once electrolyte abnormality resolves. Chronic medical conditions Heart failure with preserved ejection fraction, present on admission, chronic - Most recent echo 12/21/2016: EF greater than 80%, hyperdynamic LV - Strict I's and O's, daily standing weights - Consider IV furosemide once electrolytes abnormalities resolved COPD, present on admission, chronic - Continue home Xopenex Paroxysmal Afib, POA, chronic. Active -Continue home Metoprolol as above -Continue home Plavix 75 mg PO daily -Tele monitoring as above -Currently rate controlled Hypothyroidism, present on admission, chronic - Continue home levothyroxine - Repeat T4 and TSH Hypertension, present on admission, chronic - Restart home metoprolol tartrate and clonidine - She was also on lisinopril, unclear why this was discontinue - Hold lisinopril for now secondary to hyponatremia Obstructive sleep apnea, present on admission, chronic, - Supplemental O2 as needed while asleep - Encourage family to bring in home CPAP Metabolic syndrome, present on admission, chronic - A1c 5.9 last November 2016, morbid obesity, and hypertension - Heart healthy diet - Recommend weight loss, nutritional counseling including low-salt diet prior to discharge GERD, present admission, chronic - Continue home PPI Chronic pain disorder, present admission, chronic - Oxycodone APAP 5335 every 6 hours as needed DVT prophylaxis: Heparin subcutaneous Patient Status: Patient is admitted under inpatient status with expected length of stay GREATER than 2 midnights due to severity of presenting symptoms, risk of adverse event, and complexity of treatment plan. VTE Prophylaxis: Sub-Q Heparin (Unfractionated) Resuscitation Status: Limited Interventions (yes to resuscitation, and no to intubation) Esdras Acevedo DO Jan 29, 2017 03:36
[2017-01-29] MEDS ORDERED: Calcium GLUCO 10% (mEq) Inj 9.3 MEQ in Dextrose 5% 100 ML IV ONE (04:00)
[2017-01-29] MEDS ORDERED: Insulin Human REGular 300 Unit/3 mL Inj IV ONE (04:30)
[2017-01-29 04:51] LABS: APPEARANCE,URINE CLEAR (CLEAR,HAZY); COLOR,URINE YELLOW (YELLOW); PH,URINE 6.5 (5.0-8.0)
[2017-01-29 04:52] LABS: OCCULT BLOOD,URINE NEGATIVE (NEGATIVE); UROBILINOGEN,URINE NORMAL (NORMAL)
[2017-01-29 05:11] LABS: OSMOLALITY, URINE 392 mOs/kH2O (250-1200)
[2017-01-29 05:14] LABS: BASOPHILS % (AUTO) 0.2 % (0-3); EOSINOPHILS % (AUTO) 1.4 % (0-5); MONOCYTES % (AUTO) 13.1 % (4-12); Mean Corpuscular Hemoglobin 29.4 pg (27.0-35.0); Mean Corpuscular Volume 87.1 fL (81-100); NEUTROPHILS % (AUTO) 73.2 % (40-74); Platelet Count 306 bil/L (150-400)
--- NOTE | 2017-01-29 05:27 | NUR ---
Gave D50 with 10 units insulin and calcium gluc to assist with lowering levels of potassium. Unable to chart D50 on eMAR, pharmacy unable to put it on the eMAR.
[2017-01-29] MEDS: cloNIDine 0.1 mg Tablet PO SCH ×2 (07:57→20:34)
[2017-01-29] MEDS: Heparin 5,000 Unit/mL Inj SUBQ SCH ×2 (07:58→16:53)
[2017-01-29] MEDS ORDERED: Pantoprazole 20 mg ER24 Tablet PO SCH (08:30)
--- NOTE | 2017-01-29 08:56 | DRSVH ---
PROCEDURE: X-RAY CHEST, TWO VIEWS ([id number]) INDICATIONS: dyspnea TECHNIQUE: 2 views of the chest were acquired. COMPARISON: [facility], CR, XR CHEST 2VW, 07/17/2016, 17:27. FINDINGS: Surgical changes and devices: Left chest wall pacemaker redemonstrated. Lungs and pleura: No pleural effusions or pneumothorax. There are increased patchy bibasilar opacit ies. Mediastinum: Mediastinal contours are unchanged. Heart size is enlarged. Bones and chest wall: No suspicious bony abnormalities. Soft tissues appear unremarkable. IMPRESSION: 1. Increased patchy bibasilar opacities may reflect pneumonia, aspiration, or atelectasis. Dictated by: Troy Thompson M.D. on 01/29/2017 at 8:54 Approved by: Troy Thompson M.D. on 01/29/2017 at 8:55
[2017-01-29] MEDS ORDERED: 3% Sodium Chloride Inj 500 ML IV SCH (09:05)
[2017-01-29] MEDS ORDERED: 3% Sodium Chloride Inj 100 ML IV ONE (09:10)
--- NOTE | 2017-01-29 11:19 | NUR ---
Note Long interview with the patient and her family and attending MD this morning regarding her health history and currant symptoms with spanish interpreter translating patient is Maori speaking only. Patient denied having pain currently. She appeared to be winded while talking but denied having shortness of breath at rest. Oxygen saturation in mid-90s on RA and respiratory rate 16-22 pre min. dietary fluid restrictions of 800ml/24h were explained to the patient and her family and all verbalized understanding. 3% sodium infusion was started per MD orders for serum sodium level of 114. Potassium rechecked this morning was 5.7 and down from earlier morning draw of 6.2- MD aware about labs. Patient fell at home about a week ago- consulted with MD - MD ordered PT evaluation- patient/family aware.
[2017-01-29] MEDS: 3% Sodium Chloride Inj 500 ML IV SCH (12:15)
--- NOTE | 2017-01-29 13:15 | NUR ---
NUTRITION ASSESSMENT: ASSESS: Pt is an 86yo F admitted to CCU for hyponatremia. She is currently on a HH diet with fluid restriction of 800ml. PO x1 meal was fair at 50% PMHX: COPD, CHF, BONI, HTN, Afib, GERD, Heart block LABS: Reviewed. Na 115, K 5.7, Cl 75, sericulturist 1.06, Glu 112, Alb 3.7 MEDS: Reviewed. GI: 0 BM SKIN: Ismael 13 CURRENT WTS: 91.1kg, BMI 40.6kg/m2, IBW: 43.2kg, adj bw: 55kg DIET: Heart Healthy, PO 50% EST. NEEDS: BMI Kcals: 1380-1655kcal/day (25-30kcal/kg adjbw) Pro: 65-85g/day (1.2-1.5g/kg adj bw) NUTRITION DIAGNOSIS: 1.) Altered nutrition related lab values related to hyponatremia as evidence by Na of 112 at admit, need for fluid restriction and heart healthy diet. NUTRITION INTERVENTION: 1.) Will monitor for PO tolerance/intake MONITOR / EVAL: PO, wt, labs, gi, POC, nutrition status. Will continue to monitor per moderate nutrition risk guidelines.
--- NOTE | 2017-01-29 13:25 | PCM.PNMED ---
Subjective Date of Service Jan 29, 2017 Subjective Pulmonary Critical Care Progress Note Today the patient states that she has had difficulty with ambulation for the last several days. She was actually seen at [facility] ED in [place] for a fall on ThursdayJanuary 24 where no blood work was obtained only xrays checking for rib fractures which were reportedly negative. The patient states that normally she can ambulate with a walker without issue. The patient states that she has also had some difficulty with her upper extremities shaking, as well as nausea, and a headache described as a sensation of pins and needles. She patient has chest pain described as intermittent lasting 5 minutes and described as a sensation of a hammer to the left side of her chest and shortness of breath which appears to be around baseline. She continues to deny fever, chills, or a cough. Exam Vital Signs Vital Sign - Last Date Time Temp Pulse Resp B/P Pulse Ox O2 Delivery O2 Flow Rate FiO2 01/29/17 12:05 37.0 83 18 133/64 98 Room Air Intake and Output 01/28/17 01/28/17 01/29/17 Cumulative From/Thru 15:00 23:00 07:00 01/28/17 22:34 - 01/29/17 06:20 Intake Total 593 ml 593 ml Output Total 93 ml 93 ml Balance 500 ml 500 ml Intake IV Total 593 ml 593 ml Output Urine Total 93 ml 93 ml # Voids 1 1 # Bowel Movements 0 0 Exam General: elderly morbidly obese female in no acute distress with conversational dyspnea EYES: PERRLA, EOMI, Anicteric sclerae, moist conjunctivae. left sided pterygium HENT: Normocephalic, atraumatic, moist mucus membranes without central cyanosis , oropharynx clear Neck: No JVD, No bruits. No lymphadenopathy or thyromegaly. Cardiovascular: Regular rate and rhythm with no murmurs, rubs, or gallops appreciated Pulmonary: mild diminished breath sounds in the right base with mild course breath sounds in the right inferior posterior lung katz with wheezes or rhonchi however Abdomen: +Bowel sound, Soft, nontender, nondistended. Extremities: No clubbing or cyanosis, no lymphedema, mild bilateral pitting edema to the lower legs extending up to the knees, onychomycosis Skin: Normal temperature, turgor, and texture; no rash. No visualized skin ulcer. Neurological: CN II-VII grossly intact, no significant dysdiadochokinesia in upper extremities, notable weakness in shoulder of right arm and bilateral hip flexors, but strength intact bilaterally at flooring installer, biceps, triceps plantar and dorsiflexion, able to perform finger to nose on left but not right, no pronator drift, was unable to watch the patient ambulate at this time, will attempt to return when PT works with the patient Psychiatric: Through director distribution in room normal mood and affect. AOx2, unsure of exact date however knew [facility] Lab and Diagnostics Result Diagram: 01/29/17 0300 01/29/17 1130 X-Rays, CTs and MRIs X-RAY CHEST, TWO VIEWS IMPRESSION: 1. Increased patchy bibasilar opacities may reflect pneumonia, aspiration, or atelectasis. Approved by: Troy Thompson M.D. on 01/29/2017 at 8:55 Assessment & Plan Patient is an 86-year-old female with medical history significant for morbid obesity, COPD, diastolic heart failure, and third-degree heart block with pacemaker admitted for severe hyponatremia. Hyponatremia secondary to SIADH, present on admission, active - Patient is moderately symptomatic with gait disturbance, nausea, and headache. Family describes new onset shakiness to upper extremities and voice - Patient appears mildly hypervolemic to euvolemic, and has likely been hyponatremic for at least 4-5 days since onset of reported gate disturbance - Urine osmolarity of 390 with and serum osmolarity of 240, and urine sodium of high 30s makes SIADH most likely, records indicate that the patient is chronically mildly hyponatremic with a dip into the 110s less than 5 years ago - review of CT chest abdomen pelvic and CT PE in November 2016 fails to review a notable lung pathology consistent with cause of SIADH, there is a persistent right sided pleural effusion causing some compressive atelectasis, however given the patient's neurologic complaints a head CT without contrast will be ordered - Fluid restriction at 800 mL/day - Nephrology Dr. Bey has been consulted - Patient is started on hypertonic saline 3% at 30ml/hr and will have sodium rechecked Q2 Hyperkalemia, present on admission, active - pt constipated, creatinine is 1.09, GFR 69 - Patient is ventricularly paced - Calcium gluconate along with insulin, D50W, and Kayexalate ordered and given overnight - Potassium improvement noted without bowel movement, dulcolax suppository to encourage stool softening, avoid bowel stimulation given constipation at this time Shortness of breath, present on admission, active - Possible related to diastolic heart failure, though chest x-ray does not show significant congestion, nor BNP showed significant elevation - Some concern for pneumonia given chest x-ray showing some signs of bibasilar infiltrate, pro-calcitonin is negative, no elevated white count however - Patient was given 1 dose of ceftriaxone and azithromycin in the ED - Trending pro-calcitonin, low threshold to start steroids and antibiotics with any signs or symptoms of infection - Holding Lasix for now, resume once electrolyte abnormality resolves. Heart failure with preserved ejection fraction, present on admission, chronic - Most recent echo 12/21/2016: EF greater than 80%, hyperdynamic LV - Strict I's and O's, daily standing weights - Consider IV furosemide once electrolytes abnormalities resolved COPD, present on admission, chronic - no sign of active exacerbation as patient is without wheezing - Continue home Xopenex Paroxysmal Afib, POA, chronic. Active -Continue home Metoprolol as above -Per patient's template checker she is not a condidate for anticoagulation given her significant fall risk -Continue home Plavix 75 mg PO daily -Tele monitoring as above Hypothyroidism, present on admission, chronic - Continue home levothyroxine - Repeat T4 and TSH shows mildly elevated T4 with normal TSH Hypertension, present on admission, chronic - Restart home metoprolol tartrate and clonidine - Hold lisinopril for now secondary to hyperkalemia and mild GALO Obstructive sleep apnea, present on admission, chronic, - Supplemental O2 as needed while asleep - Encourage family to bring in home CPAP Metabolic syndrome, present on admission, chronic - A1c 5.9 last November 2016, morbid obesity, and hypertension - Heart healthy diet - Recommend weight loss, nutritional counseling including low-salt diet prior to discharge GERD, present admission, chronic - Continue home PPI Chronic pain disorder, present admission, chronic - Oxycodone APAP 5335 every 6 hours as needed DVT prophylaxis: Heparin subcutaneous VTE Prophylaxis: Sub-Q Heparin (Unfractionated) Resuscitation Status: Limited Interventions (yes to resuscitation, and no to intubation) Sanket Mendoza DO Jan 29, 2017 13:25
--- NOTE | 2017-01-29 14:15 | NUR ---
Social Work: Initial Assessment D: Per EMR review, pt is an 86 year old female admitted for basilar pneumonia, Hyponatremia. Pt is Medicare with [facility] supplement; pt has no LTC insurance or VA benefits. PCP is Jeanette Key MD. DORINA is Carrie Castillo, son, . Advanced directives completed- MACHINE CASTINGS PLASTERER requested copy from pt's family. No RA Score entered at this time. MACHINE CASTINGS PLASTERER met with the pt's family at bedside. Pt is resting at this time. Pt is Indonesian speaking. Family speaks Bulgarian and declined the use of an aerial photograph interpreter. Pt lives in [place] with her daughter. Pt lives in a single story home with ramp access and uses a w/c at baseline. Pt is currently open for services with [facility] for RN, PT and MACHINE CASTINGS PLASTERER. Family would like this to continue when she discharges home. They are also curious about [facility] caregiving for the patient. MACHINE CASTINGS PLASTERER provided family with [facility] and [facility] Q&A info. They would like an expedited referral sent anticipating they will be taking the patient home when she is medically stable. MACHINE CASTINGS PLASTERER discussed pt's care with MD. MD agrees that pt would benefit from resumed HH and a referral to [facility]. Order placed by MD to refer to these agencies. MACHINE CASTINGS PLASTERER spoke with Paul Kim with [facility] to notify of pt's admission. Access provided. [facility] Referral completed and faxed to [facility]. A: Pt who lives at home with family P: Anticipate pt to discharge home via POV with resumed caregiving from family and resumed [facility] for RN, PT, MACHINE CASTINGS PLASTERER. Family to follow up with [facility] re: [facility] Expedited referral post-discharge. MACHINE CASTINGS PLASTERER to continue to follow to assess for discharge needs. SORAIDA Flores Addendum: 01/29/17 at 1429 by GERALD TUCKER Amended: Links added.
--- NOTE | 2017-01-29 14:30 | PCM.PNMED ---
Subjective Date of Service Jan 29, 2017 Subjective Amber Castillo is an 86-year-old woman with medical history significant for diastolic heart failure, COPD, and proximal A. fib with third-degree heart block s/p pacemaker presented with shortness of breath currently under treatment for hyponatremia. Overnight: No acute events since admission. Today: The patient was communicated to with the help of an truckload owner operator. The patient states she is feeling better but not well. She states she is fatigued and her back is hurting her. She is also quite short of breath as well. She states she has had hyponatremia before but not sure of what it was from. The remainder of review of systems is negative except as noted above. Exam Vital Signs Vital Sign - Last Date Time Temp Pulse Resp B/P Pulse Ox O2 Delivery O2 Flow Rate FiO2 01/29/17 12:05 37.0 83 18 133/64 98 Room Air Intake and Output 01/28/17 01/28/17 01/29/17 Cumulative From/Thru 15:00 23:00 07:00 01/28/17 22:34 - 01/29/17 06:20 Intake Total 593 ml 593 ml Output Total 93 ml 93 ml Balance 500 ml 500 ml Intake IV Total 593 ml 593 ml Output Urine Total 93 ml 93 ml # Voids 1 1 # Bowel Movements 0 0 Exam General: Morbidly obese, thick neck, conversational dyspnea, patient was lying flat in a hospital bed. HEENT: Normocephalic, atraumatic. PERRLA, EOMI, Anicteric sclerae, moist conjunctivae. Neck: No JVD, No bruits. No lymphadenopathy or thyromegaly. Cardiovascular: Regular rate and rhythm with no murmurs, rubs, or gallops appreciated however exam limited by body habitus. Pulmonary: Bilateral air sound, but diminished, no crackles wheezes or rhonchi however Abdomen: +Bowel sound, Soft, nontender, nondistended. Extremities: No clubbing or cyanosis, no lymphedema, mild bilateral pitting edema to the lower legs extending up to the knees Skin: Normal temperature, turgor, and texture; no rash. No visualized skin ulcer. Neurological: CN II-VII grossly intact, moving equally on all 4 extremities Psychiatric: Normal mood and affect. AOx3 Lab and Diagnostics Result Diagram: 01/29/17 0300 01/29/17 1325 X-Rays, CTs and MRIs X-RAY CHEST, TWO VIEWS IMPRESSION: 1. Increased patchy bibasilar opacities may reflect pneumonia, aspiration, or atelectasis. Approved by: Troy Thompson M.D. on 01/29/2017 at 8:55 Assessment & Plan Amber Castillo is an 86-year-old woman with medical history significant for diastolic heart failure, COPD, and proximal A. fib with third-degree heart block s/p pacemaker presented with shortness of breath currently under treatment for hyponatremia. 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 Family describes new onset shakiness to upper extremities and voice - Urine osmolarity of 390 with and serum osmolarity of 240, and urine sodium of high 30s makes SIADH most likely, records indicate that the patient is chronically mildly hyponatremic with a dip into the 110s less than 5 years ago - No obvious lung pathology. Will follow up with brain CT. - Fluid restriction at 800 mL/day - Nephrology Dr. Bey has been consulted, appreciate her expertise. Patient is started on hypertonic saline 3% at 30ml/hr and will have sodium rechecked Q2 Hyperkalemia, present on admission, resolved - pt constipated, creatinine is 1.09, GFR 69 - Calcium gluconate along with insulin, D50W, and Kayexalate ordered and given overnight Shortness of breath, etiology unclear, present on admission, active - Possible related to diastolic heart failure, though chest x-ray does not show significant congestion, nor BNP showed significant elevation - Patient was given 1 dose of ceftriaxone and azithromycin in the ED however uncertain of any sings of pneumonia. - Trending pro-calcitonin, low threshold to start steroids and antibiotics with any signs or symptoms of infection - Holding Lasix for now, resume once electrolyte abnormality resolves. Heart failure with preserved ejection fraction, present on admission, chronic - Most recent echo 12/21/2016: EF greater than 80%, hyperdynamic LV - Strict I's and O's, daily standing weights - Consider IV furosemide once electrolytes abnormalities resolved COPD, present on admission, chronic - no sign of active exacerbation as patient is without wheezing - Continue home Xopenex Paroxysmal Afib, POA, chronic. Active -Continue home Metoprolol as above -Per patient's gold cutter she is not a candidate for anticoagulation given her significant fall risk -Continue home Plavix 75 mg PO daily -Tele monitoring as above Hypothyroidism, present on admission, chronic - Continue home levothyroxine. Likely elevated TSH is due to acute illness. Hypertension, present on admission, chronic - Restart home metoprolol tartrate and clonidine - Hold lisinopril for now secondary to hyperkalemia and mild GALO Obstructive sleep apnea, present on admission, chronic, - Supplemental O2 as needed while asleep - Encourage family to bring in home CPAP Metabolic syndrome, present on admission, chronic - A1c 5.9 last November 2016, morbid obesity, and hypertension - Heart healthy diet - Recommend weight loss, nutritional counseling including low-salt diet prior to discharge GERD, present admission, chronic - Continue home PPI Chronic pain disorder, present admission, chronic - Oxycodone APAP 5335 every 6 hours as needed DVT prophylaxis: Heparin subcutaneous Disposition: Anticipate patient will be in the hospital for 1-2 more days. VTE Prophylaxis: Sub-Q Heparin (Unfractionated) Resuscitation Status: Limited Interventions (yes to resuscitation, and no to intubation) Attending Statement Patient seen and examined with house staff. Agree with all attached documentation. Janeth Lofton DO Jan 29, 2017 14:11 Nabil Benton MD Jan 29, 2017 17:07
--- NOTE | 2017-01-29 14:43 | DRSVH ---
PROCEDURE: CT BRAIN WITHOUT CONTRAST ([id number]) INDICATIONS: AMS, hyponatremia TECHNIQUE: Noncontrast 4.5 mm thick angled axial sections acquired from the foramen magnum to the vertex, with c oronal reformats. COMPARISON: [facility], CT, BRAIN W/O CONTRAST, 08/11/2011, 17:27. FINDINGS: Image quality: Excellent. CSF spaces: Basal cisterns are patent. No extra-axial fluid collections. The ventricles are symmet hedy in size and shape. Brain: No intracranial bleeds or masses. There is cerebral volume loss for age, with resultant vent ricular and sulcal prominence. There are periventricular and deep white matter chronic small vessel ischemic changes. There is intracranial internal carotid artery atherosclerosis. Skull and face: Calvarium and visualized facial bones appear intact, without suspicious lesions. Sinuses: Visualized sinuses and mastoids are clear. IMPRESSION: No acute intracranial abnormality. Dictated by: Harjinder Davis M.D. on 01/29/2017 at 14:39 Approved by: Harjinder Davis M.D. on 01/29/2017 at 14:41
--- NOTE | 2017-01-29 15:37 | CONS ---
[address] [address] CONSULTATION REPORT PATIENT: LUI LAWRENCE : 1930 MR#: [id number] ADMIT: 01/29/2017 JOB ID: [id number] DATE OF SERVICE: 01/29/2017 NEPHROLOGY CONSULTATION: REQUESTING PHYSICIAN: Nabil Benton MD REASON FOR CONSULTATION: Management of hyponatremia and hyperkalemia. CHIEF COMPLAINT: Shortness of breath. HISTORY OF PRESENT ILLNESS: This is an 86-year-old, lady with a past medical history of diastolic heart failure, hypertension, COPD, third-degree AV block status post pacemaker placement, obesity, hypothyroid, degenerative joint disease, dyslipidemia, who presented to the hospital with a complaint of shortness of breath. The patient reported that she has had shortness of breath especially during exertion. The patient reported that she went to the [facility] Emergency department after the event of fall. The x-ray was done, which showed no fracture. The patient was seen by a chemical pumper yesterday. Her blood pressure was a little bit on the low side, 106/64. She was told to increase Lasix from 20 mg once a day to 20 mg twice a day and lisinopril was discontinued due to history of hyperkalemia and low blood pressure. Our initial BMP showed sodium of 112. Her blood pressure overnight has been on the high side, running between 140s to 160s systolic. The patient reports no history of fever but positive for chills. She had history of nausea but no vomiting. No diarrhea. She has no worsening lower extremity swelling. About eight days ago she was given cephalexin after they found that she had some blood in the urine; however, she was asymptomatic. She does not take any NSAIDs. She takes Tylenol as needed twice a day. She reported a history of nocturia at least four times at night. In terms of her medications, she does not take any SSRI or any other antipsychotic or antidepressant medication. She takes clonidine, Plavix, furosemide, levothyroxine, metoprolol, omeprazole, and Xopenex. Her initial serum osmolality was 243. Urine osmolality was 392. Urine sodium 38. The patient was seen by our service in November 2016. At that time she was found to have acute kidney injury related to over-diuresis and it got better after IV hydration. The patient has had history of chronic hyponatremia; per outpatient record her sodium level was 121 on January 21, 2017. However, there was no further treatment documented under [facility] system. The patient reported some headaches. No reported history of convulsion. The patient has some difficulty walking and reported having history of upper extremity shaking. The patient denies history of chest pain, palpitations, cough, dysuria, or hematuria. PAST MEDICAL HISTORY: 1. Third-degree AV block, status post pacemaker placement. 2. COPD. 3. Hypertension. 4. History of intermittent hyponatremia. 5. Obesity. 6. Hypothyroid. 7. GERD. 8. Pulmonary nodule. 9. COPD with history of tobacco abuse in the past. 10. Degenerative joint disease. 11. Chronic atrial fibrillation not on anticoagulant. She takes only Plavix. Managed by her chemical pumper. 12. History of diastolic heart failure. PAST SURGICAL HISTORY: Status post pacemaker placement in 2007. FAMILY HISTORY: Positive for hypertension, arthritis, asthma in the family. SOCIAL HISTORY: She is a . She is a former smoker. Denies current use of alcohol, tobacco, or illicit drugs. ALLERGIES: NITROGLYCERIN. MEDICATIONS: Tylenol as needed, omeprazole, Xopenex, furosemide 20 mg twice a day, clonidine 0.1 mg twice a day, metoprolol 1-1/2 twice a day, levothyroxine, Plavix. REVIEW OF SYSTEMS: A 14-point review of systems was performed. PHYSICAL EXAMINATION: Vital signs: Temperature 37.0, pulse 86, respiratory 19 blood pressure 149/82, O2 sat 98% on room air. General appearance: Awake, alert. Oriented x3. No acute distress. HEENT: No pallor. No jaundice. No JVD. No lymphadenopathy. No thyroid enlargement. Atraumatic. Moist mucous membranes. PERRLA. Heart: Regular rhythm. Normal S1 and S2. No murmurs, rubs, or gallops. Lungs: Decreased breath sounds at the bases. No wheezing, no rhonchi. Abdomen: Soft, obese. Active bowel sounds. Nontender. Nondistended. No hepatosplenomegaly. Extremities: No significant lower extremity edema. IMAGING: Chest x-ray showed increased patchy bibasilar opacity. May reflect pneumonia, aspiration, or atelectasis. LABORATORY: WBC 5.7, hemoglobin 9.8. Sodium 114, potassium 5.7, chloride 75, bicarb 24, BUN 21, creatinine 1.06, calcium 9.4. Uric acid 5.0, serum osmolality 243. Procalcitonin 0.02. ProBNP 3652. UA: Specific gravity 1.012, urine osmolality 392, urine sodium 38. Echocardiogram on December 21, 2016 showed ejection fraction over 80% in atrial fibrillation. IMPRESSION: 1. Chronic hyponatremia. From our records her previous sodium level was 121 on January 21, 2017. The initial sodium level last night was 112. The patient was put on the fluid restriction and it has increased to 114. According to my assessment, the patient appears euvolemic though she had underlying disease of diastolic heart failure. I do not appreciate any jugular venous distension or lower extremity swelling. Her lungs are clear. I do not hear any wheezing. Chest x-ray does not appear to be overloaded. The etiology of the hyponatremia is likely due to SIADH. The etiology of the is SIADH is to be determined. It could be related to lung pathology; however, we need to rule out any occult malignancy. At this point I will go ahead and put the patient on 3% running at 30 mL/hour and we will monitor her sodium level every 2 hours. 2. Hyperkalemia secondary to TONI inhibitor. We will put it on hold. 3. Elevated blood pressure. Rule out rebound hypertension. The patient was on clonidine. We will resume all her antihypertensive medications. 4. Shortness of breath. Suspected healthcare associated pneumonia. 5. Underlying disease of diastolic heart failure. 6. Hypothyroid. 7. Obesity. 8. Chronic obstructive pulmonary disease with history of tobacco abuse. Thank you for allowing me to participate in the care of your patient. We will monitor along with you.
[2017-01-29] MEDS ORDERED: Insulin Human REGular-Omnicell 100 Unit/mL IV ONE (16:15)
[2017-01-29] MEDS ORDERED: Dextrose 10% 250 ML IV ONE (16:15)
[2017-01-29] MEDS: Levalbuterol 1.25 mg/0.5mL Inhalation Solution NEB PRN (16:19)
--- NOTE | 2017-01-29 16:27 | NUR ---
Evaluation completed. Please go to "Notes" then click on "Assessments and Notes" (bottom left corner of screen). Then select appropriate discipline tab on top of screen.
--- NOTE | 2017-01-29 17:08 | NUR ---
CT/sodium levels/transfer CT of the head was completed this afternoon to follow up on her fall a weak ago at home. Patient denied having any headache or discomfort. PT evaluation was completed today- patient remained unstable and unable to support her balance per PT report- continue bedrest activity restriction. Continue 3% NS infusion at 30 ml/h for total of 500ml today as clarified with attending/ordering composite boat builder. Continue serum sodium monitoring per lab draws- MD aware of slow but steady increase in sodium levels. Patient was transferred to [facility] status this afternoon. Report was given to the receiving RN.
[2017-01-29] MEDS: Ondansetron 2 mg/mL 2 mL Inj IVPUSH PRN (22:12)
[2017-01-29] MEDS: oxyCODONE-Acetamin 5-325 mg Tablet PO PRN (22:39)
[2017-01-30] VITALS (9 sets, daily range): BP systolic 131–191; BP diastolic 72–82; PULSE 66–79; RESP 16–22; O2SAT 97–100
[2017-01-30] MEDS: Heparin 5,000 Unit/mL Inj SUBQ SCH ×3 (01:11→17:46)
[2017-01-30] MEDS: 3% Sodium Chloride Inj 500 ML IV SCH (01:47)
[2017-01-30 02:47] LABS: BASOPHILS % (AUTO) 0.2 % (0-3); EOSINOPHILS % (AUTO) 1.9 % (0-5); MONOCYTES % (AUTO) 11.7 % (4-12); Mean Corpuscular Hemoglobin 29.6 pg (27.0-35.0); NEUTROPHILS % (AUTO) 72.2 % (40-74); Platelet Count 273 bil/L (150-400)
--- NOTE | 2017-01-30 05:31 | NUR ---
Sodium Pt Na at beginning of shift 116; progressed through shift to 120 as of this AM. Per MD order, 3% saline infusion discontinued. Pt c/o significant pain to R lateral back d/t recent fall; requested pain medication at HS and reported only mildly effective. States pain is exacerbated with movement and requests to be left on side throughout shift without turning. Able to rest between interventions. VSS, tele V-paced 70s.
[2017-01-30] MEDS: cloNIDine 0.1 mg Tablet PO SCH ×2 (09:01→20:54)
--- NOTE | 2017-01-30 10:49 | NUR ---
Social Work: Multidisciplinary Rounds/Continued Discharge Planning D: Pt discussed in am rounds. Pt was Very dizzy with PT yesterday; due to pt's increased BP PT will not be working with pt today. states that pt will require 1-2 more days of hospitalization. Pt is open with [facility] for RN, PT, SECURITY CONTROL CENTER OPERATOR. Family would like pt to d/c home with resumed services. Order acknowledged for HH and [facility] referral. Nephro is following. SECURITY CONTROL CENTER OPERATOR received t/c from Zeinab Bhatt with [facility] ([phone]). She has received the patient's referral for [facility] and has spoken with the family about completing an in-home assessment. She is requesting clinicals faxed at discharge so she can follow up with the family to schedule assessment. She is aware that pt will be here another 1-2 days. A: Pt who lives at home with family and is w/c bound. P: Anticipate pt to return home with resumed [facility] for RN, PT, SECURITY CONTROL CENTER OPERATOR and follow up with [facility] for in-home assessment for [facility]. SECURITY CONTROL CENTER OPERATOR to fax discharge ppw once completed. SORAIDA Flores
--- NOTE | 2017-01-30 12:15 | NUR ---
Hypertension/Pain Pt BP 191/76 for morning vitals. MD notified, referred RN to Dr Patel/Nephrology. MD ordered 10mg of Lisinopril and asked to be called with pt's BP at 1300. Pt c/o pain in ribs and back relating to GLF from 1 week ago. Discussed with pt preference of tylenol vs oxycodone. Pt prefers Tylenol as Oxycodone makes her too sleepy and nauseous. Pt administered 650mg of PO Tylenol. Upon reassessment, pt stated that she has "un poquito de dolor ".
[2017-01-30] MEDS: oxyCODONE-Acetamin 5-325 mg Tablet PO PRN ×2 (13:03→20:27)
--- NOTE | 2017-01-30 14:08 | PCM.PNNEPH ---
Subjective Date of Service Jan 30, 2017 Subjective The patient continues to do well. This morning her serum sodium is 120 and her main complaint is some ongoing back pain from her recent fall. Her blood pressures a bit elevated this morning following receiving her metoprolol. She denies any headache, chest pain, or shortness of breath. Her intake and output were 1164 in and 643 out for the last 24 hours. Her sodium is 120, potassium 5.4, chloride 85 and bicarbonate 23. Her BUN and creatinine were 20 and 0.5 respectively. Exam Vital Signs Vital Sign - Last Date Time Temp Pulse Resp B/P Pulse Ox O2 Delivery O2 Flow Rate FiO2 01/30/17 12:45 36.6 79 20 131/72 99 Room Air Intake and Output 01/29/17 01/29/17 01/30/17 Cumulative From/Thru 15:00 23:00 07:00 01/28/17 22:34 - 01/30/17 06:32 Intake Total 571 ml 519 ml 1683 ml Output Total 550 ml 750 ml 1393 ml Balance 21 ml -231 ml 290 ml Intake Oral 400 ml 250 ml 650 ml IV Total 171 ml 269 ml 1033 ml Output Urine Total 550 ml 750 ml 1393 ml # Voids 3 4 # Bowel Movements 1 1 Exam Neck is supple without adenopathy, thyromegaly, or jugular venous distention. Lungs were clear to auscultation. Heart regular and rhythmical with a soft systolic murmur. Abdomen is soft without any tenderness, rebound, guarding, masses, or hepatosplenomegaly. Extremities do not show any evidence of any clubbing, cyanosis or edema. Skin turgor is good. Lab and Diagnostics Result Diagram: 01/30/1722401/30/17 0225 X-Rays, CTs and MRIs X-RAY CHEST, TWO VIEWS IMPRESSION: 1. Increased patchy bibasilar opacities may reflect pneumonia, aspiration, or atelectasis. Approved by: Troy Thompson M.D. on 01/29/2017 at 8:55 Plan Impression Impression #1 acute hyponatremia which is resolving number to syndrome of inappropriate ADH secretion #3 hypertension with hypertensive heart disease and hypertensive nephrosclerosis. Recommendations #1 I would like to give her 10 mg lisinopril now. I would also want to make sure that her pain is adequately controlled as this may be driving force with her blood pressure. Also to continue on her fluid restriction and continue to follow her lab. Laith Patel DO Jan 30, 2017 14:08
--- NOTE | 2017-01-30 14:56 | PCM.PNMED ---
Subjective Date of Service Jan 30, 2017 Subjective Amber Castillo is an 86-year-old woman with medical history significant for diastolic heart failure, COPD, and proximal A. fib with third-degree heart block s/p pacemaker presented with shortness of breath currently under treatment for hyponatremia. Overnight: No acute events. Today: The patient states that she feels quite tired however feels better as compared to yesterday. The patient does complain of right rib pain. She states her dizziness has improved as well but has not resolved and is only notable when she is attempting to stand up. The remainder of review of systems is negative except as noted above. Exam Vital Signs Vital Sign - Last Date Time Temp Pulse Resp B/P Pulse Ox O2 Delivery O2 Flow Rate FiO2 01/30/17 09:08 75 18 98 Room Air 01/30/17 09:07 37.0 191/76 Intake and Output 01/29/17 01/29/17 01/30/17 Cumulative From/Thru 15:00 23:00 07:00 01/28/17 22:34 - 01/30/17 06:32 Intake Total 571 ml 519 ml 1683 ml Output Total 550 ml 750 ml 1393 ml Balance 21 ml -231 ml 290 ml Intake Oral 400 ml 250 ml 650 ml IV Total 171 ml 269 ml 1033 ml Output Urine Total 550 ml 750 ml 1393 ml # Voids 3 4 # Bowel Movements 1 1 Exam General: Morbidly obese, thick neck, conversational dyspnea, patient was lying flat in a hospital bed. HEENT: Normocephalic, atraumatic. PERRLA, EOMI, Anicteric sclerae, moist conjunctivae. Neck: No JVD, No bruits. No lymphadenopathy or thyromegaly. Cardiovascular: Regular rate and rhythm with no murmurs, rubs, or gallops appreciated however exam limited by body habitus. Pulmonary: Bilateral air sound, but diminished, no crackles wheezes or rhonchi however Abdomen: +Bowel sound, Soft, nontender, nondistended. Extremities: No clubbing or cyanosis, no lymphedema, mild bilateral pitting edema to the lower legs extending up to the knees Skin: Normal temperature, turgor, and texture; no rash. No visualized skin ulcer. Neurological: CN II-VII grossly intact, moving equally on all 4 extremities Psychiatric: Normal mood and affect. AOx3 IVs and Medications Medications Reviewed: Medications were reviewed in detail Lab and Diagnostics Result Diagram: 01/30/1722401/30/17224 X-Rays, CTs and MRIs X-RAY CHEST, TWO VIEWS IMPRESSION: 1. Increased patchy bibasilar opacities may reflect pneumonia, aspiration, or atelectasis. Approved by: Troy Thompson M.D. on 01/29/2017 at 8:55 CT BRAIN WITHOUT CONTRAST IMPRESSION: No acute intracranial abnormality. Dictated by: Harjinder Davis M.D. on 01/29/2017 at 14:39 Assessment & Plan Amber Castillo is an 86-year-old woman with medical history significant for diastolic heart failure, COPD, and proximal A. fib with third-degree heart block s/p pacemaker presented with shortness of breath currently under treatment for hyponatremia. 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 Family describes new onset shakiness to upper extremities. 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 Will follow up with brain CT. - Status after 3% saline - Fluid restriction at 800 mL/day - Nephrology Dr. Bey has been consulted, appreciate her expertise. Hyperkalemia, present on admission, resolved - pt constipated, creatinine is 1.09, GFR 69 - Calcium gluconate along with insulin, D50W, and Kayexalate ordered and given Shortness of breath, etiology unclear, present on admission, active - Possible related to diastolic heart failure, though chest x-ray does not show significant congestion, nor BNP showed significant elevation - Patient was given 1 dose of ceftriaxone and azithromycin in the ED however uncertain of any sings of pneumonia. - Trending pro-calcitonin, low threshold to start steroids and antibiotics with any signs or symptoms of infection - Holding Lasix for now, resume once electrolyte abnormality resolves. Heart failure with preserved ejection fraction, present on admission, chronic - Most recent echo 12/21/2016: EF greater than 80%, hyperdynamic LV - Strict I's and O's, daily standing weights - Consider IV furosemide once electrolytes abnormalities resolved COPD, present on admission, chronic - no sign of active exacerbation as patient is without wheezing - Continue home Xopenex Paroxysmal Afib, POA, chronic. Active -Continue home Metoprolol as above -Per patient's charging crane operator she is not a candidate for anticoagulation given her significant fall risk -Continue home Plavix 75 mg PO daily -Tele monitoring as above Hypothyroidism, present on admission, chronic - Continue home levothyroxine. Likely elevated TSH is due to acute illness. Hypertension, present on admission, chronic - Restart home metoprolol tartrate and clonidine - Hold lisinopril for now secondary to hyperkalemia and mild GALO Obstructive sleep apnea, present on admission, chronic, - Supplemental O2 as needed while asleep - Encourage family to bring in home CPAP Metabolic syndrome, present on admission, chronic - A1c 5.9 last November 2016, morbid obesity, and hypertension - Heart healthy diet - Recommend weight loss, nutritional counseling including low-salt diet prior to discharge GERD, present admission, chronic - Continue home PPI Chronic pain disorder, present admission, chronic - Oxycodone APAP 5335 every 6 hours as needed DVT prophylaxis: Heparin subcutaneous Disposition: Anticipate patient will be in the hospital for 1-2 more days. VTE Prophylaxis: Sub-Q Heparin (Unfractionated) Resuscitation Status: Limited Interventions (yes to resuscitation, and no to intubation) Attending Statement The patient was seen and examined with staff. Agree with all attached documentation. Janeth Lofton DO Jan 30, 2017 10:46 Nabil Benton MD Jan 30, 2017 17:48
--- NOTE | 2017-01-30 15:57 | NUR ---
Activity: Pt up to chair for approx 90 minutes, extensive 2p assist.
[2017-01-30] MEDS: Ondansetron 2 mg/mL 2 mL Inj IVPUSH PRN (20:54)
[2017-01-31] VITALS (8 sets, daily range): BP systolic 118–160; BP diastolic 61–82; PULSE 70–80; RESP 14–22; O2SAT 95–99
[2017-01-31] MEDS: Heparin 5,000 Unit/mL Inj SUBQ SCH ×3 (00:43→17:26)
[2017-01-31 03:25] LABS: Magnesium 2.2 mg/dL (1.6-2.6); Phosphorus 4.5 mg/dL (2.5-4.9)
--- NOTE | 2017-01-31 03:56 | NUR ---
Pain/Tele C/O 03/05 pain, gave [place] and 8 Mg Zofran, has nausea associated w PO meds that is controlled w zofran 8 Mg IV. Pt is able to assist with turning , has upper body strength. Pain associated w bruising from fall at home. A&O x3 using call light appropriately, has limited Polish as 2nd language, daughter in room assisting w communication and ADL. Code status is limited interventions: Compressions but no intubation. Room Air, SL left forearm, Has OTC pain patch VANESSA cody'astrid lester DR. Tele V-Paced 70's
[2017-01-31] MEDS: Ondansetron 2 mg/mL 2 mL Inj IVPUSH PRN ×2 (04:44→20:36)
[2017-01-31] MEDS: oxyCODONE-Acetamin 5-325 mg Tablet PO PRN ×3 (04:45→20:36)
[2017-01-31] MEDS: cloNIDine 0.1 mg Tablet PO SCH ×2 (08:57→20:35)
--- NOTE | 2017-01-31 09:54 | PCM.PNNEPH ---
Subjective Date of Service Jan 31, 2017 Subjective Patient's serum sodium continues to improve with a level of 1 25 mg/dL this morning. Her blood pressure is better and there tends to be a component of pain associated with the elevation. Otherwise she denies any chest pain, shortness of breath, nausea or vomiting. Her intake and output was 809 and in 1950 out. This morning her sodium is 125, potassium 5.4, chloride 87, bicarbonate 25, BUN and creatinine were 17 and 1.07. Exam Vital Signs Vital Sign - Last Date Time Temp Pulse Resp B/P Pulse Ox O2 Delivery O2 Flow Rate FiO2 01/31/17 08:45 36.5 77 18 121/74 97 Room Air Intake and Output 01/30/17 01/30/17 01/31/17 Cumulative From/Thru 15:00 23:00 07:00 01/28/17 22:34 - 01/31/17 06:41 Intake Total 290 ml 220 ml 2193 ml Output Total 1200 ml 700 ml 3293 ml Balance -910 ml -480 ml -1100 ml Intake Oral 290 ml 220 ml 1160 ml IV Total 1033 ml Output Urine Total 1200 ml 700 ml 3293 ml # Voids 4 # Bowel Movements 1 Exam HEENT examination is remarkable for pale sclera. Neck supple without adenopathy , thyromegaly, or jugular venous distention. Lungs were clear to auscultation. Heart was regular and rhythmical with a soft systolic murmur. Abdomen is soft without any tenderness, rebound, guarding, masses, or hepatosplenomegaly. She is not sure any evidence of any clubbing, cyanosis, or edema. Skin turgor is good. Lab and Diagnostics Result Diagram: 01/30/17 0225 01/31/17 0230 X-Rays, CTs and MRIs X-RAY CHEST, TWO VIEWS IMPRESSION: 1. Increased patchy bibasilar opacities may reflect pneumonia, aspiration, or atelectasis. Approved by: Troy Thompson M.D. on 01/29/2017 at 8:55 CT BRAIN WITHOUT CONTRAST IMPRESSION: No acute intracranial abnormality. Dictated by: Harjinder Davis M.D. on 01/29/2017 at 14:39 Plan Impression Impression #1 hyponatremia which is resolving. 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 Recommendations #1 I would continue her on all the fluid restriction and make sure that she could not analgesia is appropriate as I feel that this will benefit her blood pressure more than anything else. I would also like to start her on lisinopril 10 mg at bedtime. At this point I will sign off the case. I do not have any questions or should any problems arise between now and her discharge hast[facility]etocontactus. Laith Patel DO Jan 31, 2017 09:54
--- NOTE | 2017-01-31 13:59 | NUR ---
Social Work: Multidisciplinary Rounds Pt discussed in am rounds. Pt is not medically stable for discharge at this time. Pt with low sodium level. Pt's discharge status remains unchanged. Anticipate d/c home with pawaned Claudine BLACK for RN, PT, BOWLING ALLEY MANAGER and JAMES assessment from [facility] SORAIDA Flores
--- NOTE | 2017-01-31 14:01 | NUR ---
[facility] Signed
--- NOTE | 2017-01-31 15:45 | PCM.PNMED ---
Subjective Date of Service Jan 31, 2017 Subjective She is very reluctant to move because of pain in the right side of her rib cage. She has been resisting attempts were physical therapy, she feels that they are moving her to quickly. Her daughter notes that she usually moves very slowly at home. She denies any dyspnea. Overall her strength is slowly improving. No confusion today. Her speech is more clear. Poor appetite, but no nausea or abdominal pain or diarrhea. No overnight events. Exam Vital Signs Vital Sign - Last Date Time Temp Pulse Resp B/P Pulse Ox O2 Delivery O2 Flow Rate FiO2 01/31/17 12:05 36.5 80 20 130/66 97 Room Air Intake and Output 01/30/17 01/30/17 01/31/17 Cumulative From/Thru 15:00 23:00 07:00 01/28/17 22:34 - 01/31/17 06:41 Intake Total 290 ml 220 ml 2193 ml Output Total 1200 ml 700 ml 3293 ml Balance -910 ml -480 ml -1100 ml Intake Oral 290 ml 220 ml 1160 ml IV Total 1033 ml Output Urine Total 1200 ml 700 ml 3293 ml # Voids 4 # Bowel Movements 1 Exam Alert and oriented -3, no distress. Fluent speech Anicteric sclera. Lungs are clear with normal rate and effort Heart is regular without murmur gallop or rub Abdomen soft nontender, flat Extremities are free of edema. Skin is free of rash or lesions. IVs and Medications Medications Reviewed: Medications were reviewed in detail Lab and Diagnostics Result Diagram: 01/30/17 0225 01/31/17 0230 X-Rays, CTs and MRIs X-RAY CHEST, TWO VIEWS IMPRESSION: 1. Increased patchy bibasilar opacities may reflect pneumonia, aspiration, or atelectasis. Approved by: Troy Thompson M.D. on 01/29/2017 at 8:55 CT BRAIN WITHOUT CONTRAST IMPRESSION: No acute intracranial abnormality. Dictated by: Harjinder Davis M.D. on 01/29/2017 at 14:39 Assessment & Plan Amber Castillo is an 86-year-old woman with medical history significant for diastolic heart failure, COPD, and proximal A. fib with third-degree heart block s/p pacemaker presented with shortness of breath currently under treatment for hyponatremia. 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 Family describes new onset shakiness to upper extremities. 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 Will follow up with brain CT. - Status after 3% saline - Fluid restriction at 800 mL/day - Nephrology has signed off. We will continue current measures a fluid restriction. Hyperkalemia, present on admission, mild and recurrent. Will follow closely. - pt constipated, creatinine is 1.09, GFR 69 - Calcium gluconate along with insulin, D50W, and Kayexalate ordered and given Shortness of breath, etiology unclear, present on admission, active and improved. - Possible related to diastolic heart failure, though chest x-ray does not show significant congestion, nor BNP showed significant elevation - Patient was given 1 dose of ceftriaxone and azithromycin in the ED however uncertain of any sings of pneumonia. - Trending pro-calcitonin, low threshold to start steroids and antibiotics with any signs or symptoms of infection - Holding Lasix for now, resume once electrolyte abnormality resolves. Right-sided chest pain, musculoskeletal versus rib fracture. POA. We will obtain a right sided rib x-rays today per family request. Heart failure with preserved ejection fraction, present on admission, chronic - Most recent echo 12/21/2016: EF greater than 80%, hyperdynamic LV - Strict I's and O's, daily standing weights - Consider IV furosemide once electrolytes abnormalities resolved COPD, present on admission, chronic and stable and stable - no sign of active exacerbation as patient is without wheezing - Continue home Xopenex Paroxysmal Afib, POA, chronic. Active -Continue home Metoprolol as above -Per patient's photogrammetric compilation specialist she is not a candidate for anticoagulation given her significant fall risk -Continue home Plavix 75 mg PO daily -Tele monitoring as above Hypothyroidism, present on admission, chronic - Continue home levothyroxine. Likely elevated TSH is due to acute illness. Hypertension, present on admission, chronic and stable and stable - Restart home metoprolol tartrate and clonidine - Hold lisinopril for now secondary to hyperkalemia and mild GALO Obstructive sleep apnea, present on admission, chronic, and stable - Supplemental O2 as needed while asleep - Encourage family to bring in home CPAP Metabolic syndrome, present on admission, chronic and stable - A1c 5.9 last November 2016, morbid obesity, and hypertension - Heart healthy diet - Recommend weight loss, nutritional counseling including low-salt diet prior to discharge GERD, present admission, chronic - Continue home PPI Chronic pain disorder, present admission, chronic - Oxycodone APAP 5335 every 6 hours as needed DVT prophylaxis: Heparin subcutaneous Disposition: Anticipate patient will be in the hospital for 1-2 more days. VTE Prophylaxis: Sub-Q Heparin (Unfractionated) Resuscitation Status: Limited Interventions (yes to resuscitation, and no to intubation) Nabil Benton MD Jan 31, 2017 15:45
--- NOTE | 2017-01-31 16:34 | DRSVH ---
PROCEDURE: X-RAY RIGHT RIBS, TWO VIEWS ([id number]) INDICATIONS: chest pain after fall TECHNIQUE: 3 views of the right ribs were acquired. COMPARISON: None. FINDINGS: This is a markedly limited study due to patient body habitus. Surgical changes and devices: None. Bones and chest wall: There are likely displaced fractures of the lateral aspect of the third and fou rth ribs visualized on single view. Lungs and pleura: The visualized lung appears clear. No pleural effusions or pneumothorax are visib le. IMPRESSION: Probable displaced fractures of the lateral aspect of the right third and fourth ribs. Ho wever, this is a markedly limited study given large patient body habitus. Dictated by: Melody Sifuentes M.D. on 01/31/2017 at 16:31 Approved by: Melody Sifuentes M.D. on 01/31/2017 at 16:33
--- NOTE | 2017-01-31 18:15 | NUR ---
Activity Pt. has been bedrest today, refusing PT. She rolls side to side with min-moderate assistance. c/o mild to moderate shoulder pain from her fall. This pain gets much worse if people tough her shoulder. She is wearing icy-hot pads and she says one half of a percocet helps as well.
[2017-02-01] VITALS (10 sets, daily range): BP systolic 93–172; BP diastolic 52–105; PULSE 71–79; RESP 16–22; O2SAT 94–98
[2017-02-01] MEDS: Heparin 5,000 Unit/mL Inj SUBQ SCH ×3 (00:48→17:03)
--- NOTE | 2017-02-01 04:24 | NUR ---
Pain/Tele/Supp Has experienced worse pain when moving for care, admin pain meds as ordered she says is helpful, C/O constipation, requested suppository, administered suppository no effect thus far in shift. A&O x3, using call light appropriately, family in room assisting w ADL as well as communication as pt is not conversant well in azerbaijani. Room air, Saline locked Telemetry, V-Paced 75.
[2017-02-01] MEDS: cloNIDine 0.1 mg Tablet PO SCH ×2 (08:50→21:51)
[2017-02-01] MEDS ORDERED: Sodium Biphos-Phos 133 mL Enema RECTAL ONE (10:30)
--- NOTE | 2017-02-01 11:10 | NUR ---
GI Patient has not had BM since admission. Suppository given last night, no BM yet. Reports flatus but feelings of constipation and discomfort. Fleets enema given per order. Monitor electroplater on while explaining to patient. Pt verbalized understanding of enema, instructed to call when ready to have BM.
[2017-02-01] MEDS: oxyCODONE-Acetamin 5-325 mg Tablet PO PRN ×2 (11:28→18:33)
--- NOTE | 2017-02-01 12:00 | NUR ---
Activity Per PT, patient did better today. Was able to do more ROM and sit at bedside. Unable to stand still as she is "too sore." Able to assist with turns. Complaints of R shoulder and R rib pain. Guards the right side.
--- NOTE | 2017-02-01 14:26 | NUR ---
Social Work: Continued Discharge Planning/Multidisciplinary Rounds D: Pt discussed in am rounds. Pt is not medically stable for discharge. PT has been seeing the pt with recommendations for SNF via BLS. FAGOTING MACHINE OPERATOR discussed SNF recommendation in am rounds. MD and team discussed pt's low activity tolerance and reports of pain with movement. MD still confers that pt is more appropriate to discharge home with home health. Pt's family's preference is for home health as well. FAGOTING MACHINE OPERATOR has faxed a JAMES referral to [facility] which was received by Zeinab Bhatt. She will meet with the family for an in-home assessment once she is discharged. The pt is currently open for services with [facility] for RN, PT, MOTOR SETTER which family states they would like resumed. A: Pt who lives at home with her daughter who is her primary caregiver. P: Anticipate pt to discharge home with resumed [facility] for RN, PT, FAGOTING MACHINE OPERATOR and follow up with [facility] for in-home JAMES assessment. FAGOTING MACHINE OPERATOR to continue to follow to asses for further d/c needs. SORAIDA Flores
--- NOTE | 2017-02-01 16:44 | PCM.PNMED ---
Subjective Date of Service Feb 01, 2017 Subjective She is having less pain today. The pain is still right side of her chest. Chest x-ray confirms to rib fractures level 3 and 4. No shortness of breath. No abdominal pain. Her appetite is better. No problems with diarrhea. No confusion. She is somewhat sleepy. No overnight events noted Exam Vital Signs Vital Sign - Last Date Time Temp Pulse Resp B/P Pulse Ox O2 Delivery O2 Flow Rate FiO2 02/01/17 15:48 36.9 74 18 93/52 94 Room Air Intake and Output 01/31/17 01/31/17 02/01/17 Cumulative From/Thru 15:00 23:00 07:00 01/28/17 22:34 - 02/01/17 05:10 Intake Total 230 ml 100 ml 2523 ml Output Total 650 ml 800 ml 4743 ml Balance -420 ml -700 ml -2220 ml Intake Oral 200 ml 100 ml 1460 ml IV Total 30 ml 1063 ml Output Urine Total 650 ml 800 ml 4743 ml # Voids 4 # Bowel Movements 0 0 1 Exam Alert and oriented -3, no distress. Fluent speech Anicteric sclera. Lungs are clear with normal rate and effort Heart is regular without murmur gallop or rub Abdomen soft nontender, flat Extremities are free of edema. Skin is free of rash or lesions. IVs and Medications Medications Reviewed: Medications were reviewed in detail Lab and Diagnostics Result Diagram: 01/30/17 0225 02/01/17 0930 X-Rays, CTs and MRIs X-RAY CHEST, TWO VIEWS IMPRESSION: 1. Increased patchy bibasilar opacities may reflect pneumonia, aspiration, or atelectasis. Approved by: Troy Thompson M.D. on 01/29/2017 at 8:55 CT BRAIN WITHOUT CONTRAST IMPRESSION: No acute intracranial abnormality. Dictated by: Harjinder Davis M.D. on 01/29/2017 at 14:39 Assessment & Plan Amber Castillo is an 86-year-old woman with medical history significant for diastolic heart failure, COPD, and proximal A. fib with third-degree heart block s/p pacemaker presented with shortness of breath currently under treatment for hyponatremia. 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 Family describes new onset shakiness to upper extremities. 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 Will follow up with brain CT. - Status after 3% saline - Fluid restriction at 800 mL/day - Nephrology has signed off. We will continue current measures a fluid restriction. Hyperkalemia, present on admission, mild and resolved. - pt constipated, creatinine is 1.09, GFR 69 - Calcium gluconate along with insulin, D50W, and Kayexalate ordered and given Shortness of breath, etiology unclear, present on admission, active and improved. Slight relates to her rib fractures and splinting. - Possible related to diastolic heart failure, though chest x-ray does not show significant congestion, nor BNP showed significant elevation - Patient was given 1 dose of ceftriaxone and azithromycin in the ED however uncertain of any sings of pneumonia. - Trending pro-calcitonin, low threshold to start steroids and antibiotics with any signs or symptoms of infection - Holding Lasix for now, resume once electrolyte abnormality resolves. Right-sided chest pain, secondary to 2 fractures. POA. And improving. Continue oral pain medications at current dose. Heart failure with preserved ejection fraction, present on admission, chronic and stable - Most recent echo 12/21/2016: EF greater than 80%, hyperdynamic LV - Strict I's and O's, daily standing weights - Consider IV furosemide once electrolytes abnormalities resolved COPD, present on admission, chronic and stable - no sign of active exacerbation as patient is without wheezing - Continue home Xopenex Paroxysmal Afib, POA, chronic. Active -Continue home Metoprolol as above -Per patient's meter engineer she is not a candidate for anticoagulation given her significant fall risk -Continue home Plavix 75 mg PO daily -Tele monitoring as above Hypothyroidism, present on admission, chronic - Continue home levothyroxine. Likely elevated TSH is due to acute illness. Hypertension, present on admission, chronic and stable and stable - Restart home metoprolol tartrate and clonidine - Hold lisinopril for now secondary to hyperkalemia and mild GALO Obstructive sleep apnea, present on admission, chronic, and stable - Supplemental O2 as needed while asleep - Encourage family to bring in home CPAP Metabolic syndrome, present on admission, chronic and stable - A1c 5.9 last November 2016, morbid obesity, and hypertension - Heart healthy diet - Recommend weight loss, nutritional counseling including low-salt diet prior to discharge GERD, present admission, chronic - Continue home PPI Chronic pain disorder, present admission, chronic - Oxycodone APAP 5335 every 6 hours as needed DVT prophylaxis: Heparin subcutaneous Disposition: Anticipate patient will be in the hospital for 1-2 more days. VTE Prophylaxis: Sub-Q Heparin (Unfractionated) Resuscitation Status: Limited Interventions (yes to resuscitation, and no to intubation) Nabil Benton MD Feb 01, 2017 16:44
[2017-02-01] MEDS: Levalbuterol 1.25 mg/0.5mL Inhalation Solution NEB PRN (23:09)
[2017-02-02] VITALS (8 sets, daily range): BP systolic 108–200; BP diastolic 57–97; PULSE 71–80; RESP 16–20; O2SAT 94–99
[2017-02-02] MEDS: Heparin 5,000 Unit/mL Inj SUBQ SCH ×3 (02:18→16:25)
--- NOTE | 2017-02-02 06:20 | NUR ---
Rest/Pain Pt was able to rest throughout the shift. Pt did not c/o pain and would only say she had little pain when asked about whether or not she had pain. The pt's pain was in the right ribs and right shoulder. Pt wears salonpas patches on the right shoulder to help ease the pain. When talking to the pt's daughter she said that the pt cannot tolerate more than 1/2 a pain pill. There is a note on the pt's right shoulder on the outside of her gown that informs all that she hurts there and to not touch her there if at all possible.
[2017-02-02] MEDS: cloNIDine 0.1 mg Tablet PO SCH ×2 (09:42→19:55)
--- NOTE | 2017-02-02 10:26 | NUR ---
Social Work Note: Multidisciplinary Rounds Pt was discussed in AM rounds this morning. Pt condition unchanged at this time. PT to continue to work with pt, recommendations remain SNF via BLS. Per pt family preference and MD orders, discharge plan remains home with home health services. SW to continue to follow for new MD orders and pt needs. SORAIDA Mills
--- NOTE | 2017-02-02 10:47 | NUR ---
NUTRITION FOLLOW UP: ASSESS: 86 YO F admitted to CCU for hyponatremia. She is currently on a heart healthy diet with fair PO intake. PMHX: COPD, CHF, BONI, HTN, Afib, GERD, Heart block LABS: Reviewed. Na 123 MEDS: Reviewed. GI: 1 BM (02/02). SKIN: Ismael 13 CURRENT WT: 83.9 kg, BMI 37.4 kg/m2, IBW: 43.2 kg, adj bw: 55 kg DIET: Heart Healthy, PO intake 10-100% ESTIMATED NEEDS: BMI Calories: 1858-4579 kcal/day (25-30 kcal/kg adj bw) Protein: 65-85 g/day (1.2-1.5 g/kg adj bw) NUTRITION DIAGNOSIS: 1.) Altered nutrition related lab values related to hyponatremia as evidence by Na of 112 at admit, need for heart healthy diet. ---PERSISTS. NUTRITION INTERVENTION: 1.) Continue current diet as tolerated. MONITOR/EVALUATE: PO intake, wt, labs, GI, POC, nutrition status. Follow per low nutrition risk guidelines.
--- NOTE | 2017-02-02 15:49 | PCM.PNMED ---
Subjective Date of Service Feb 02, 2017 Subjective She is doing better today. She is sitting up in a chair. She has a Mata in place. Her pain is improving. Still has some pain with movement but worse with breathing. A little lightheaded and somewhat thirsty. No bowel movement for several days. No feeling of having a bowel movement. No overnight events Exam Vital Signs Vital Sign - Last Date Time Temp Pulse Resp B/P Pulse Ox O2 Delivery O2 Flow Rate FiO2 02/02/17 14:28 Room Air 02/02/17 11:51 37.1 72 18 133/62 95 Intake and Output 02/01/17 02/01/17 02/02/17 Cumulative From/Thru 14:59 22:59 06:59 01/28/17 22:34 - 02/02/17 06:29 Intake Total 400 ml 400 ml 3323 ml Output Total 700 ml 900 ml 6343 ml Balance -300 ml -500 ml -3020 ml Intake Oral 400 ml 400 ml 2260 ml IV Total 1063 ml Output Urine Total 700 ml 900 ml 6343 ml # Voids 4 8 # Bowel Movements 1 2 1 5 Exam Alert and oriented -3, no distress. Fluent speech Anicteric sclera. Lungs are clear with normal rate and effort Heart is regular without murmur gallop or rub Abdomen soft nontender, flat Extremities are free of edema. Skin is free of rash or lesions. IVs and Medications Medications Reviewed: Medications were reviewed in detail Lab and Diagnostics Result Diagram: 01/30/17 0225 02/02/17 0300 X-Rays, CTs and MRIs X-RAY CHEST, TWO VIEWS IMPRESSION: 1. Increased patchy bibasilar opacities may reflect pneumonia, aspiration, or atelectasis. Approved by: Troy Thompson M.D. on 01/29/2017 at 8:55 CT BRAIN WITHOUT CONTRAST IMPRESSION: No acute intracranial abnormality. Dictated by: Harjinder Davis M.D. on 01/29/2017 at 14:39 Assessment & Plan Amber Castillo is an 86-year-old woman with medical history significant for diastolic heart failure, COPD, and proximal A. fib with third-degree heart block s/p pacemaker presented with shortness of breath currently under treatment for hyponatremia. 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 Family describes new onset shakiness to upper extremities. 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 Will follow up with brain CT. - Status after 3% saline - Fluid restriction at 800 mL/day -Rediscussed with nephrology today, we will give normal saline 100 mils an hour for 1 L and follow her BMP tomorrow. Hyperkalemia, present on admission, mild and resolved. - pt constipated, creatinine is 1.09, GFR 69 - Calcium gluconate along with insulin, D50W, and Kayexalate ordered and given Shortness of breath, etiology unclear, present on admission, active and improved. Slight relates to her rib fractures and splinting. - Possible related to diastolic heart failure, though chest x-ray does not show significant congestion, nor BNP showed significant elevation - Patient was given 1 dose of ceftriaxone and azithromycin in the ED however uncertain of any sings of pneumonia. - Trending pro-calcitonin, low threshold to start steroids and antibiotics with any signs or symptoms of infection - Holding Lasix for now, resume once electrolyte abnormality resolves. Right-sided chest pain, secondary to 2 fractures. POA. And improving. Continue oral pain medications at current dose. Heart failure with preserved ejection fraction, present on admission, chronic and stable - Most recent echo 12/21/2016: EF greater than 80%, hyperdynamic LV - Strict I's and O's, daily standing weights - Consider IV furosemide once electrolytes abnormalities resolved COPD, present on admission, chronic and stable - no sign of active exacerbation as patient is without wheezing - Continue home Xopenex Paroxysmal Afib, POA, chronic. Active -Continue home Metoprolol as above -Per patient's card brusher she is not a candidate for anticoagulation given her significant fall risk -Continue home Plavix 75 mg PO daily -Tele monitoring as above Hypothyroidism, present on admission, chronic - Continue home levothyroxine. Likely elevated TSH is due to acute illness. Hypertension, present on admission, chronic and stable and stable - Restart home metoprolol tartrate and clonidine - Hold lisinopril for now secondary to hyperkalemia and mild GALO Obstructive sleep apnea, present on admission, chronic, and stable - Supplemental O2 as needed while asleep - Encourage family to bring in home CPAP Metabolic syndrome, present on admission, chronic and stable - A1c 5.9 last November 2016, morbid obesity, and hypertension - Heart healthy diet - Recommend weight loss, nutritional counseling including low-salt diet prior to discharge GERD, present admission, chronic - Continue home PPI Chronic pain disorder, present admission, chronic - Oxycodone APAP 5335 every 6 hours as needed DVT prophylaxis: Heparin subcutaneous Disposition: Anticipate patient will be in the hospital for 1-2 more days. VTE Prophylaxis: Sub-Q Heparin (Unfractionated) VTE Mechanical Devices: Intermittant Pneumatic CD Resuscitation Status: Limited Interventions (yes to resuscitation, and no to intubation) Nabil Benton MD Feb 02, 2017 15:49
[2017-02-02] MEDS: 0.9% Sodium Chloride 1,000 ML IV SCH ×2 (16:16→21:30)
[2017-02-02] MEDS: oxyCODONE-Acetamin 5-325 mg Tablet PO PRN ×2 (16:24→22:27)
--- NOTE | 2017-02-02 16:45 | NUR ---
BP BP 200/78 at 1630. notified. Gave 1730 Metoprolol early per . Asymptomatic. Pt was able to get up to a chair with SBA. NS at 100ml/hr started. Giving percocet for right shoulder pain. Family at bedside.
[2017-02-03 00:04] VITALS: BP 136/82; PULSE 71; RESP 20; O2SAT 97
[2017-02-03] MEDS: Heparin 5,000 Unit/mL Inj SUBQ SCH ×3 (00:04→16:41)
[2017-02-03 04:40] VITALS: BP 161/80; PULSE 84; RESP 20; O2SAT 97
--- NOTE | 2017-02-03 05:33 | NUR ---
Pain Pt c/o pain 4/10 on right side rib area, pt stated that she would like pain medication at 10pm. Administered 1/2 percocet (per pt family request) and effective. pt able to rest most of shift. VSS and pt no longer on Tele.
[2017-02-03 09:08] VITALS: BP 167/85; PULSE 90; RESP 12; O2SAT 98
[2017-02-03] MEDS: 0.9% Sodium Chloride 1,000 ML IV SCH ×4 (09:12→14:40)
[2017-02-03] MEDS: cloNIDine 0.1 mg Tablet PO SCH ×2 (09:33→20:35)
--- NOTE | 2017-02-03 10:44 | PCM.PNMED ---
Subjective Date of Service Feb 03, 2017 Subjective She is doing much better today. She is ready to get her Mata out. She remains constipated. She has much less pain in the right rib cage from her fall. No shortness of breath. No dizziness. Less weakness. No confusion. No overnight events noted Exam Vital Signs Vital Sign - Last Date Time Temp Pulse Resp B/P Pulse Ox O2 Delivery O2 Flow Rate FiO2 02/03/17 09:08 37.1 90 12 167/85 98 Room Air Intake and Output 02/02/17 02/02/17 02/03/17 Cumulative From/Thru 15:00 23:00 07:00 01/28/17 22:34 - 02/03/17 06:08 Intake Total 400 ml 1425 ml 5148 ml Output Total 1900 ml 8243 ml Balance 400 ml -475 ml -3095 ml Intake Oral 400 ml 200 ml 2860 ml IV Total 1225 ml 2288 ml Output Urine Total 1900 ml 8243 ml # Voids 3 11 # Bowel Movements 5 Exam Alert and oriented -3, no distress. Fluent speech Anicteric sclera. Lungs are clear with normal rate and effort Heart is regular without murmur gallop or rub Abdomen soft nontender, flat Extremities are free of edema. Skin is free of rash or lesions. IVs and Medications Medications Reviewed: Medications were reviewed in detail Lab and Diagnostics Result Diagram: 01/30/17 0225 02/03/17 0240 X-Rays, CTs and MRIs X-RAY CHEST, TWO VIEWS IMPRESSION: 1. Increased patchy bibasilar opacities may reflect pneumonia, aspiration, or atelectasis. Approved by: Troy Thompson M.D. on 01/29/2017 at 8:55 CT BRAIN WITHOUT CONTRAST IMPRESSION: No acute intracranial abnormality. Dictated by: Harjinder Davis M.D. on 01/29/2017 at 14:39 Assessment & Plan Amber Castillo is an 86-year-old woman with medical history significant for diastolic heart failure, COPD, and proximal A. fib with third-degree heart block s/p pacemaker presented with shortness of breath currently under treatment for hyponatremia. #. 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 If all is doing okay a liter of saline in the 100 hour yesterday which did bring her sodium from 123-127. We will give an additional 500 over the course of the day today. We will anticipate no more IV fluids after this and discharged home tomorrow. They have asked that she continue fluid restriction. #. Hyperkalemia, present on admission, resolved. #. Shortness of breath, etiology unclear, present on admission, resolved. Slight relates to her rib fractures and splinting. #. Right-sided chest pain, secondary to 2 fractures. POA. And improving. Continue oral pain medications at current dose. #. Heart failure with preserved ejection fraction, present on admission, chronic and stable Vital medication #. COPD, present on admission, chronic and stable - no sign of active exacerbation as patient is without wheezing - Continue home Xopenex #. Paroxysmal Afib, POA, chronic. Active Usual medications, DC telemetry #. Hypothyroidism, present on admission, chronic and stable #. Hypertension, present on admission, chronic and stable and stable - Restart home metoprolol tartrate and clonidine - Hold lisinopril for now secondary to hyperkalemia and mild GALO Obstructive sleep apnea, present on admission, chronic, and stable - Supplemental O2 as needed while asleep - Encourage family to bring in home CPAP Metabolic syndrome, present on admission, chronic and stable - A1c 5.9 last November 2016, morbid obesity, and hypertension - Heart healthy diet - Recommend weight loss, nutritional counseling including low-salt diet prior to discharge GERD, present admission, chronic - Continue home PPI Chronic pain disorder, present admission, chronic - Oxycodone APAP 5335 every 6 hours as needed DVT prophylaxis: Heparin subcutaneous Disposition: Anticipate hospital discharge home tomorrow, February 04. The patient declined half-way facility even though physical therapy recommends this. The family supports her decision. They do have Meals on Wheels. They request home physical therapy as well as a toilet lift at the time of discharge. VTE Prophylaxis: Sub-Q Heparin (Unfractionated) VTE Mechanical Devices: Intermittant Pneumatic CD Resuscitation Status: Limited Interventions (yes to resuscitation, and no to intubation) Nabil Benton MD Feb 03, 2017 10:43
[2017-02-03 11:45] VITALS: BP 159/90; PULSE 77; RESP 20; O2SAT 97
--- NOTE | 2017-02-03 11:46 | NUR ---
Fluids Per MD, to dc NS at 100ml/hr in 5 hours at 1600.
--- NOTE | 2017-02-03 11:54 | NUR ---
Mata Dc/d at 1150 w/o complication, will monitor for spontaneous voiding. Pt up in chair and comfortable.
--- NOTE | 2017-02-03 14:48 | NUR ---
Social Work Note: Multidisciplinary Rounds/Readiness for Discharge Data& Assessment: Pt was discussed in AM rounds, Per MD pt is getting closer to being medically ready for discharge. Pt continues to decline SNF, pt and pt family educated on fall risk and PT recommendations. Pt would like to resume [facility], RN and FOOD SERVICE AIDE. SW confirmed with Paul from [facility] that they have access. No other MD orders or pt needs identified at this time. SW to continue to follow should any needs or new orders arise. Plan: Anticipated discharge home via POV with [facility], RN and FOOD SERVICE AIDE and Meals on Wheels when medically ready with [facility] to follow up with pt to complete in home assessment for [facility]. SW to continue to follow should any needs or new orders arise. SORAIDA Mills
[2017-02-03] MEDS: Artificial Tears 15 mL Ophthalmic Solution BOTH_EYES PRN (14:55)
[2017-02-03 17:34] VITALS: BP 166/84; PULSE 82; RESP 18; O2SAT 98
[2017-02-03 20:17] VITALS: BP 153/77; PULSE 74; RESP 18; O2SAT 99
[2017-02-03] MEDS: Ondansetron 2 mg/mL 2 mL Inj IVPUSH PRN (20:22)
[2017-02-04] MEDS: Heparin 5,000 Unit/mL Inj SUBQ SCH ×2 (00:11→07:42)
[2017-02-04 00:12] VITALS: BP 163/81; PULSE 73; O2SAT 97
[2017-02-04 02:39] VITALS: BP 163/83; PULSE 71; RESP 18; O2SAT 98
--- NOTE | 2017-02-04 06:17 | NUR ---
Pain/Activity Pt c/o of mild pain in rib area 10, administered 350 Tylenol and effective, pt able to rest most of shift w/o complaints. Pt up to BSC and tolerated well, pt does have some SOB with activity. VSS and pt is no longer on tele.
[2017-02-04 07:37] VITALS: BP 176/120; PULSE 82; RESP 20; O2SAT 98
[2017-02-04] MEDS: cloNIDine 0.1 mg Tablet PO SCH (07:41)
[2017-02-04] MEDS: Artificial Tears 15 mL Ophthalmic Solution BOTH_EYES PRN (07:42)
[2017-02-04 09:30] VITALS: PULSE 69; RESP 18; O2SAT 98
[2017-02-04 11:04] VITALS: BP 121/75
--- NOTE | 2017-02-04 11:14 | NUR ---
Status Pt stable this am with "very little" discomfort of right chest/back, no pain meds required, BP on recheck after am BP meds stable. Pt up OOB in chair for breakfast x1PA. Remains on fluid restriction. Good appetite. Family at bedside. Will continue to monitor.
[2017-02-04] MEDS ORDERED: LISI-610 PO (11:50)
--- NOTE | 2017-02-04 13:14 | PCM.DIMED ---
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 You were treated medically, which improved you condition. please follow instruction as we discussed via assistant dean, Please restrict your fluid intake 800-1000cc as you did in the hospital Please follow up with your doctor in 2weeks as scheduled. Follow-up Provider: Jeanette Key MD Follow-up with PCP in: 2 weeks Susi Farooq MD Feb 04, 2017 13:14
--- NOTE | 2017-02-04 15:11 | NUR ---
Social Work Note: Discharge/Multidisciplinary Rounds Data& Assessment: Pt was discussed in AM rounds, per pt is medically ready for discharge. Amber Castillo is a 86 year old female admitted on 01/29/2017 for basilar pneumonia, hyponatremia. Per pt is medically improved and ready for discharge. Pt has improved with PT as well. PT continues to recommend SNF. Pt continues to decline and would like the plan to remain home with [facility] and PT. Pt did have requests for DME including raised toilet seat, bedside commode, side rails and wheelchair to replace the wheelchair she has at home. wrote prescription. Per order, SW met with pt and pt family at bedside with assistance of telecommunication lines repairer. Pt family provided with DME list. Pt family preference is for [facility]. Pt daughter confirmed understanding that all the equipment may not be covered. Pt daughter plans to take the original prescription with her home and contact other DME companies if [facility] is unable to provide the equipment or pay privately. VIRIDIANA left voicemail with pt [facility] CM [facility] notifying her of pt discharge, clinicals faxed. Pt family denies any other needs. Paul from [facility] notified of pt discharge. No other discharge needs or MD orders identified. All updated and agreeable to plan. Plan: Per pt is medically ready to discharge home via POV with [facility] and PT with [facility] CM to follow up regarding [facility] assessment. Pt family denies any other needs. Paul from [facility] notified of pt discharge. No other discharge needs or MD orders identified. All updated and agreeable to plan. SORAIDA Mills
--- NOTE | 2017-02-04 15:21 | NUR ---
Discharge Pt dc'd in WC with family and assistance of SPOOLER [employer]AND at 1445. Pt stable and w/o complaints. All discharge instructions reviewed with pt, family and rental representative and pt and family verbalized understanding of all instructions. All belongings with pt.
--- NOTE | 2017-02-04 15:40 | NUR ---
Faxed discharge to [facility] per LOGISTICS ACCOUNT MANAGER
--- NOTE | 2017-02-04 19:54 | PCM.DC.MED ---
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 Increased patchy bibasilar opacities may reflect pneumonia, aspiration, or atelectasis. Approved by: Troy Thompson M.D. on 01/29/2017 at 8:55 CT BRAIN WITHOUT CONTRAST IMPRESSION: No acute intracranial abnormality. Dictated by: Harjinder Davis M.D. on 01/29/2017 at 14:39 Brief History HPI obtained by on 01/29 Per patient, she reports having significant difficulty breathing for the past 3 days. No association to chest pain, orthopnea, PND, palpitation, or dizziness. Patient denies any increase in thirst, weight gain, or leg swelling. Patient and family states no change in diet, though she is not on a low-salt diet and she normally eats fried chicken, beans, and likes fruit juice. Patient denies excessive water intake. She endorses drinking 16 ounces x4 bottles of water daily. Patient faithfully takes her medication as managed by her daughter. She is severely deconditioned, she can only walks about 10 steps before having shortness of breath. This is her baseline per the past month. There have been no changes in cough pattern, fevers, chills or night sweats. About one week ago patient reports a slip and fall on her left side in her bathroom. Her left lower ribs have been hurting her. She went to [facility] ED yesterday for the pain, for which chest x-rays were ordered and patient was discharged home. No new medication was added. In the ED, patient's vitals temperature 36.6, HR 73, RR 26, BP 167/100, pulse oximetry 100% on room air. Lab CBC unremarkable, WBC 4.9, Hgb 10.4, HCT 30.4, PLT 307. CMP however noted for sodium of 112, potassium of 5.8, and slightly elevated creatinine at 1.13, baseline is 0.94. ProBNP is 3654. Pro-calcitonin 0.02. Due to her extremely low sodium, patient required close monitor and was admitted to the CCU team for further medical management Hospital Course Amber Castillo is an 86-year-old woman with medical history significant for diastolic heart failure, COPD, and proximal A. fib with third-degree heart block s/p pacemaker presented with shortness of breath currently under treatment for hyponatremia. Brief hospital course, pt was admitted with severe [id number], thought to be from SIADH, sodium level gradually improved with fluid restriction. pt remained asymptomatic upon d /c. Plan was to keep fluid restriction 800-1liter/day, which was addressed with daughter at the bedside via behavior analyst. Patient also developed GALO and hyperkalemia on admission, ACEI was briefly held but resumed by , lisinopril 10mg daily, pt tolerated well, didn't show worsening renal function or hyperkalemia. #. 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 If all is doing okay a liter of saline in the 100 hour yesterday which did bring her sodium from 123-127. We will give an additional 500 over the course of the day today. We will anticipate no more IV fluids after this and discharged home tomorrow. They have asked that she continue fluid restriction. #. Hyperkalemia, present on admission, resolved. #. Shortness of breath, etiology unclear, present on admission, resolved. Slight relates to her rib fractures and splinting. #. Right-sided chest pain, secondary to 2 fractures. POA. And improving. Continue oral pain medications at current dose. #. Heart failure with preserved ejection fraction, present on admission, chronic and stable Vital medication #. COPD, present on admission, chronic and stable - no sign of active exacerbation as patient is without wheezing - Continue home Xopenex #. Paroxysmal Afib, POA, chronic. Active Usual medications, DC telemetry #. Hypothyroidism, present on admission, chronic and stable #. Hypertension, present on admission, chronic and stable and stable - Restart home metoprolol tartrate and clonidine - Hold lisinopril for now secondary to hyperkalemia and mild GALO Obstructive sleep apnea, present on admission, chronic, and stable - Supplemental O2 as needed while asleep - Encourage family to bring in home CPAP Metabolic syndrome, present on admission, chronic and stable - A1c 5.9 last November 2016, morbid obesity, and hypertension - Heart healthy diet - Recommend weight loss, nutritional counseling including low-salt diet prior to discharge GERD, present admission, chronic - Continue home PPI Chronic pain disorder, present admission, chronic - Oxycodone APAP 5335 every 6 hours as needed DVT prophylaxis: Heparin subcutaneous Disposition: Anticipate hospital discharge home tomorrow, February 04. The patient [facility] even though physical therapy recommends this. The family supports her decision. They do have Meals on Wheels. They request home physical therapy as well as a toilet lift at the time of discharge. Exam Vital Signs (Last) Date Time Temp Pulse Resp B/P Pulse Ox O2 Delivery O2 Flow Rate FiO2 02/04/17 11:04 121/75 02/04/17 09:30 69 18 98 Room Air 02/04/17 07:37 36.8 Exam pt was examined on the day of d/c Test 01/28/17 23:35 01/29/17 00:32 01/29/17 03:00 01/29/17 04:15 Total Bilirubin 0.4mg/dL (0.0-1.2) Aspartate Amino Transf (AST/SGOT) 18U/L (0-50) Alanine Aminotransferase (ALT/SGPT) 13U/L (0-32) Alkaline Phosphatase 86U/L (25-165) Troponin T 0.010ug/L (0.0-0.011) Pro-B-Type Natriuretic Peptide 3654pg/mL (0-738) Total Protein 7.2g/dL (6.4-8.4) Albumin 3.7g/dL (3.4-5.0) Lactic Acid Level 1.0mmol/L (0.4-2.0) Osmolality 243 (275-300) Uric Acid 5.0mg/dL (2.6-7.2) Procalcitonin 0.02ng/mL (0.00-0.08) Thyroid Stimulating Hormone (TSH) 3.690uIU/mL (0.450-4.500) Free Thyroxine 1.84ng/dL (0.82-1.77) Urine Color Yellow (YELLOW) Urine Appearance Clear (CLEAR,HAZY) Urine pH 6.5 (5.0-8.0) Urine Specific [place] 1.012 (1.003-1.035) Urine Protein Negativemg/dL (NEG,TRACE) Urine Glucose (UA) Negativemg/dL (NEGATIVE) Urine Ketones Negativemg/dL (NEGATIVE) Urine Occult Blood Negative (NEGATIVE) Urine Nitrite Negative (NEGATIVE) Urine Bilirubin Negative (NEGATIVE) Urine Urobilinogen Normalmg/dL (NORMAL) Urine Leukocyte Esterase Negative (NEGATIVE) Urine RBC 0-2/hpf (0-2) Urine WBC 0-5/hpf (0-5) Urine Epithelial Cells Occasional/hpf (NONE-MOD) Urine Crystals None seen (NONE SEEN) Urine Bacteria None/hpf (NONE-FEW) Urine Hyaline Casts None/lpf (NONE) Urine Granular Casts None seen (NONE SEEN) Urine Waxy Casts None seen (NONE SEEN) Urine Red Blood Cell Casts None seen (NONE SEEN) Urine White Blood Cell Casts None seen (NONE SEEN) Urine Mucus Present (None Seen) Urine Trichomonas None seen (NONE SEEN) Urine Yeast None (NONE SEEN) Urinalysis Comment Transitional epi Urine Culture Reflexed Not indicated Urine Osmolality 392mOs/kH2O (250-1200) Urine Random Sodium 38mEq/L Test 01/29/17 08:00 01/29/17 17:43 01/30/17 02:25 01/31/17 02:30 Cortisol 21.5ug/dL (.) Hold Urine Received (Received) White Blood Count 4.8th/mm3 (3.8-10.1) Red Blood Count 3.01mil/mm3 (3.90-5.20) Hemoglobin 8.9g/dL (12.0-15.6) Hematocrit 26.5% (35.0-46.0) Mean Corpuscular Volume 88.0fL (81-100) Mean Corpuscular Hemoglobin 29.6pg (27.0-35.0) Mean Corpuscular Hemoglobin Concent 33.6% (32.0-37.0) Red Cell Distribution Width 12.9% (12.3-15.4) Platelet Count 273bil/L (150-400) Neutrophils (%) (Auto) 72.2% (40-74) Lymphocytes (%) (Auto) 13.8% (14-46) Monocytes (%) (Auto) 11.7% (4-12) Eosinophils (%) (Auto) 1.9% (0-5) Basophils (%) (Auto) 0.2% (0-3) Phosphorus Level 4.5mg/dL (2.5-4.9) Magnesium Level 2.2mg/dL (1.6-2.6) Test 02/04/17 02:25 Sodium Level 129mEq/L (134-144) Potassium Level 5.2mEq/L (3.5-5.2) Chloride Level 94mEq/L (97-108) Carbon Dioxide Level 23mmol/L (18-29) Blood Urea Nitrogen 13mg/dL (8-27) Creatinine 0.82mg/dL (0.57-1.00) Estimat Glomerular Filtration Rate 95mL/min (>59) Glucose Level 103mg/dL (60-99) Calcium Level 8.8mg/dL (8.5-10.1) Discharge Medications Discharge Medications Clonidine (Catapres) 0.1 Mg Tablet 0.1 MG PO BID Prescribed by: TISH CORTÉS MD Clopidogrel (Clopidogrel) 75 Mg Tablet 75 MG PO DAILY (Reported) Furosemide (Furosemide) 20 Mg Tab 20 MG PO BID (Reported) Levothyroxine (Levothyroxine) 75 Mcg Tablet 75 MCG PO DAILY (Reported) Lisinopril (Zestril) 10 Mg Tablet 10 MG PO HS Prescribed by: SUSI CHAMORRO MD Metoprolol Tartrate (Metoprolol Tartrate) 50 Mg Tablet 75 MG PO BIDWM (Reported ) Omeprazole (Omeprazole) 20 Mg Capsule.dr 20 MG PO DAILY (Reported) As needed Acetaminophen (Acetaminophen) 500 Mg Tablet 500 MG PO Q6H PRN PRN NEEDED ( Reported) Levalbuterol HCl (Xopenex) 1.25 Mg/3 Ml Vial.neb 1.25 MG IH Q8H PRN PRN For Shortness of Breath (Reported) Additional med instructions Please continue to take [id number] daily Please continue all of other home medicines Followup Plan Disposition: home Discharge Diet: Other (fluid restriction 800-1000cc per day) Discharge Activity: No restrictions Patient Instructions You were hospitalized with difficulty of breathing and low sodium level. You were treated medically, which improved you condition. please follow instruction as we discussed via behavior analyst, Please restrict your fluid intake 800-1000cc as you did in the hospital Please follow up with your doctor in 2weeks as scheduled. Follow-up Provider: Jeanette Key MD Follow-up with PCP in: 2 weeks Time spent 65min Susi Chamorro MD Feb 04, 2017 13:58
[2017-02-05 16:10] LABS: Aldosterone/Renin Ratio 3.8 (0.0-30.0); Renin Activity 0.633 ng/mL/hr (0.167-5.380)
== END 2017-02-04 14:40 | disposition home health service (06) | DRG 644 ==
LOC: SED 22:30 → PCC 01-29 01:45 → CCU 01-29 02:08 → PCC 01-29 15:56
PROVIDERS: ADMIT Hospitalist; ATTEND Internal Medicine
DX: E22.2 Syndrome of inappropriate secretion of antidiuretic hormone (principal); Z68.41 Body mass index [BMI] 40.0-44.9, adult; I50.32 Chronic diastolic (congestive) heart failure; I13.0 Hypertensive heart and chronic kidney disease with heart failure and stage 1 through stage 4 chronic kidney disease, or unspecified chronic kidney disease; S22.31XA Fracture of one rib, right side, initial encounter for closed fracture; E87.5 Hyperkalemia; G47.33 Obstructive sleep apnea (adult) (pediatric); F51.9 Sleep disorder not due to a substance or known physiological condition, unspecified; E88.81 Metabolic syndrome and other insulin resistance; N18.9 Chronic kidney disease, unspecified; E66.01 Morbid (severe) obesity due to excess calories; Z95.0 Presence of cardiac pacemaker; E03.9 Hypothyroidism, unspecified; Z87.891 Personal history of nicotine dependence; Z79.02 Long term (current) use of antithrombotics/antiplatelets; J44.9 Chronic obstructive pulmonary disease, unspecified; K21.9 Gastro-esophageal reflux disease without esophagitis; G89.29 Other chronic pain; I48.0 Paroxysmal atrial fibrillation; W19.XXXA Unspecified fall, initial encounter